=== PATIENT | male | born 1965 | race Caucasian/White ===

== ENCOUNTER 2016-07-05 22:10 | Inpatient (IN) | payer MEDICARE, OTHER ==
--- NOTE | ~2016-07-05 | HP ---
History And Physical [place] [id number] [place]. [address] NAME: JUDIE MARK : 65 STATUS : ADM IN PAT#: [id number] AGE: 50 ADM/REG DATE : 07/06/16 MR#: [id number] REPORT SERV DATE: 07/06/16 DICTATED BY: SAMUEL GAN DATE: 07/06/16 REPORT STATUS : Draft TRANSCRIBED BY: MODL DATE: 07/06/16 DATE OF ADMISSION: 07/06/2016 REASON FOR ADMISSION: Enterobacter bacteremia. HISTORY OF PRESENT ILLNESS: This is a 50-year-old male patient, who dialyzes on a Friday, Friday, Friday schedule at [address] [place] [address]. He has recently had blood cultures drawn that were positive for Enterobacter and sensitive to Cipro, cefepime, and ceftriaxone according to his clinic. Prior to being placed at [address] in May, he was admitted for bacteremia due to ABG and PC blood cultures positive for Enterobacter, MRSA and gram-positive cocci. During that admission, he had his PermCath and AV graft removed. Infectious Disease did see him during that admission and he was placed on vancomycin 1 g post each dialysis with Friday of this week being his last dose. The patient complains of ongoing fevers, low blood pressures fast heart rate, more shortness of breath than usual. At dialysis, two blood cultures that wore collected were positive for gram-negative bacillus with final cultures as listed previously in this HPI. He was recently treated with the addition of Fortaz 1 g on Friday of this week. It was advised to submit to ER evaluation earlier in the week. He did not follow up in the emergency department as instructed and he did not return for dialysis on Friday and was instructed by the dialysis unit to present here for evaluation. He is known to be hep B and hep C positive and has seen Dr. Georgia Vicente and during his previous admission in May, he was prescribed Viread 300 mg every Friday after HD for treatment of hepatitis B, but it is unclear that he has been taking that medication as ordered. He is known to have severe COPD, chronic pain issues, difficulty walking due to severe neuropathy. He has historically refused rehab facilities and has been receiving home health. He is awake and alert this morning during evaluation. His significant other is present in the room with him primarily questioning from the patient as well as his significant other in regard to pain medication. He denies current acute distress and denies any current needs. PAST MEDICAL HISTORY: Positive for end-stage renal disease, Friday, Friday, Friday. hemodialysis at [address], followed there by Dr. Rigoberto Pedro, recent bacteremia with medical history as listed above, diabetes mellitus type 2, hypertension, hepatitis C and hepatitis B positive, tobacco abuse with COPD, chronic pain, bilateral root rotator cuff injury, history of gout, history of skin cancers, history of urinary retention, and the remainder of his medical history is as listed in the HPI. REVIEW OF SYSTEMS: Completed. Please see HPI for pertinent details. SOCIAL HISTORY: Lives locally with significant other. Positive tobacco. Denies ETOH or illicit drugs. MEDICATIONS AND ALLERGIES: As listed. He lists allergies to hydrocodone, tramadol, Stadol, Requip, and Lyrica. ACTIVE MEDICATIONS: Include albuterol two puffs inhaled q.4 hours p.r.n., Coreg 12.5 mg p.o. History And Physical [address] [address] NAME: JUDIE MARK : 65 STATUS : ADM IN [facility]#: [id number] AGE: 50 ADM/REG DATE : 07/06/16 MR#: [id number] REPORT SERV DATE: 07/06/16 DICTATED BY: SAMUEL GAN DATE: 07/06/16 REPORT STATUS : Draft TRANSCRIBED BY: LISSETT DATE: 07/06/16 b.i.d., insulin Levemir 10 units subcu at bedtime, NovoLog via sliding scale, Cozaar 100 mg p.o. daily, Dulera two puffs inhaled b.i.d., MS Contin 30 mg p.o. b.i.d. sustained release, Percocet 10/325 one tab p.o. q.4 hours p.r.n., Viread 300 mg p.o. every seven days post- hemodialysis, Spiriva HandiHaler one cap inhaled every day, bleeding ulcer tablet, which is unknown and not clarified on current active medication list, vancomycin dosed at dialysis, Breo Ellipta two puffs inhaled q.i.d. PHYSICAL EXAMINATION: VITAL SIGNS: Blood pressure 111/57, temperature 98.9, respiratory rate at 17, heart rate is 60 beats per minute. GENERAL: He is awake, alert, oriented, sitting at bedside during evaluation. HEENT: Normocephalic, atraumatic. Normal ocular movements. No scleral icterus or conjunctival pallor is appreciated. NECK: Supple without thyromegaly. No JVD or mass. CHEST: Shows positive S1 and S2. No rubs. No gallops. LUNGS: Very diminished with scattered wheezes. No established rhonchi. GI: Shows flat abdomen, barrel chest. No appreciable mass or tenderness on his abdominal examination. : Deferred. EXTREMITIES: Show positive pulses in all four extremities. No clubbing, cyanosis, or edema. He does have a catheter access in his right chest wall. NEUROLOGIC: Appears to be grossly intact. Nonfocal. SKIN: Warm, dry, intact to the visualized surfaces. No rashes, lesions, or ecchymosis are apparent. PSYCH: He is of appropriate mood and affect. LABORATORY DATA: Pertinent laboratories and imaging to this evaluation and admission: Portable chest x-ray shows increasing bilateral asymmetric infiltrates, right lung is worse than left. Asymmetric pulmonary edema, suspected versus pneumonia or combination of the CT of the chest is worse compared to previous study. Renal function panel: Sodium 127, potassium 4.4, chloride 91, CO2 21, BUN 35, creatinine 4.95. Reflected GFR at 13 mL/minute, glucose of 116, calcium 7.7, phosphorus 4.3, albumin 2.0. Comprehensive metabolic panel shows procalcitonin at 36.88, sodium 127, potassium 3.9, chloride 92, CO2 24, BUN 32, creatinine 4.94, reflected GFR at 13 mL/minutes. Lactate level 1.5 mL. CBC: White blood count of 6.4, RBC 3.01. ABG on entry, pH 7.41, pCO2 32, pO2 85, oxygen saturation at 96.9. IMPRESSION AND PLAN: End-stage renal disease, Friday, Friday, Friday hemodialysis at [address]. Recent medical history as listed above with long clinical course including a recent bacteremia with antibiotic treatment, now known to be Enterobacter sensitive to IV antibiotics rather as listed above. Inpatient admission, hemodialysis today, usual protocols for dialysis patients and you have come to usual baseline weight. Request Infectious Disease evaluation with ongoing bacteremia and placed on IV antibiotics with sensitivity as listed above. Echocardiogram to evaluate for any valvular involvement and CT of the abdomen, chest, and pelvis to look for any other sources of sepsis, sliding scale, home medications, as well DuoNeb q.4 hours p.r.n. We will cover him with pain medications, but heavy medications that were initiated overnight will be discontinued as his p.o. History And Physical [address] [address] NAME: JUDIE MARK : [birth year] STATUS : ADM IN PAT#: [id number] AGE: 50 ADM/REG DATE : 07/06/16 MR#: [id number] REPORT SERV DATE: 07/06/16 DICTATED BY: SAMUEL GAN DATE: 07/06/16 REPORT STATUS : Draft TRANSCRIBED BY: LISSETT DATE: 07/06/16 medications will be initiated today and he is maintained on these at home. Further modification of treatment plan may be made based off clinical presentation of the patient's laboratory results, further consultation with renal attending. We appreciate other subspecialties who are participating in this gentleman's care and look forward to your medical input and opinion. DICTATED BY: Sanchez Cardenas NP JR/LISSETT Samuel Gan MD / [id number] CC: Nas Hazel M.D.
--- NOTE | ~2016-07-05 | OP ---
Record Of Operation [facility] [address] [place]. [address] NAME: JUDIE MARK : 65 STATUS : DIS IN PAT#: [id number] AGE: 50 ADM/REG DATE : 07/06/16 MR#: [id number] REPORT SERV DATE: 07/19/16 DICTATED BY: BURKE BECK DATE: 07/18/16 REPORT STATUS : Draft TRANSCRIBED BY: MODSy DATE: 07/18/16 DATE OF PROCEDURE: 07/17/2016 PREOPERATIVE DIAGNOSES: 1. End-stage renal disease. 2. History of bacteremia. POSTOPERATIVE DIAGNOSES: 1. End-stage renal disease. 2. History of bacteremia. PROCEDURE: Right IJ PermCath. SURGEON: Burke Beck M.D. FACILITY SECURITY OFFICER: None. ANESTHESIA: MAC plus local. INDICATIONS: The patient is a 50-year-old gentleman with renal failure who had bacteremia and recently had his PermCath removed. I subsequently placed a Vas-Cath. Now, he needs a PermCath. DESCRIPTION OF PROCEDURE: After informed consent was obtained, the patient was taken to the operating room and placed in the supine position on the operating table. Monitored anesthesia was administered. The patient's right neck and chest were prepped and draped in the usual sterile fashion. I inserted a wire through the existing Vas-Cath. I removed the Vas-Cath. I exchanged out my gloves. I cleaned up the area. I selected and tunneled a new 19 cm curved HemoSplit catheter from the right chest to the right neck after administering additional local anesthesia. I inserted a Peel-Away Sheath over the aforementioned wire using fluoroscopic guidance. I subsequently inserted the catheter into the Peel-Away Sheath under fluoroscopy and peeled away the sheath. I confirmed that the catheter was not kinked and that it aspirated and flushed well. It was packed with heparinized saline. The right neck wound was closed. The catheter was sutured in place. A sterile dressing was applied. The patient tolerated the procedure well without any intraprocedural complications noted. SIDE LASTER TACK/LISSETT Burke Beck M.D. / [id number] CC: Record Of Operation [place] [address]. [address] NAME: JUDIE MAKR : 65 STATUS : DIS IN [facility]#: [id number] AGE: 50 ADM/REG DATE : 07/06/16 MR#: [id number] REPORT SERV DATE: 07/19/16 DICTATED BY: BURKE BECK DATE: 07/18/16 REPORT STATUS : Draft TRANSCRIBED BY: MODL DATE: 07/18/16 Nas Hazel M.D. Nathan Chamberlain, M.D.
--- NOTE | ~2016-07-05 | CN ---
Consultation Report [facility] [address] [place]. [address] NAME: JUDIE MARK : 65 STATUS : ADM IN PAT#: [id number] AGE: 50 ADM/REG DATE : 07/06/16 MR#: [id number] REPORT SERV DATE: 07/16/16 DICTATED BY: HELDER VIZCARRA DATE: 07/16/16 REPORT STATUS : Draft TRANSCRIBED BY: MODL DATE: 07/16/16 INPATIENT SPINE SURGERY CONSULTATION (SECOND OPINION) DATE OF CONSULTATION: 07/16/2016 CHIEF COMPLAINT: Osteomyelitis, L4-L5. HISTORY OF PRESENT ILLNESS: The patient is a 50-year-old gentleman, admitted to the medical service on 07/06/2016. He has a very long and extensive and a serious list of medical problems and actually recently has been consulted by Palliative Care. Dr. Austin had seen the patient in consultation previously and recommended against surgical intervention given his medical problems, and I was asked to see the patient on second opinion. The patient has been having intractable back and leg pain, where his legs will feel weak to him and cause him to fall, his legs just give out. He states he has been using a wheelchair prior to admission. He has positive blood culture for Enterobacter MRSA and a gram-positive cocci as well. He does have a long history of pain management for chronic pain syndrome. PHYSICAL EXAMINATION: GENERAL: The patient is somewhat cachectic in appearance, in a moderate amount of distress. Has difficulty finding a position of comfort, although when he is resting, still he seems to be well controlled with his pain. NEUROLOGIC: Strength in the lower extremities is 4/5 to 4+/5 for the hip flexors, hamstrings, quadriceps, tibialis anterior, EHL, gastrocsoleus, and peroneals. He does have diffuse sensory deficits to light touch, likely related to his diabetic neuropathy. IMAGING: I have reviewed the CT scan that does show osteodiscitis at the L4-L5 level as well as degenerative disk disease at the L5-S1 level. This is of the chest, abdomen and pelvis, not a true dedicated spine image, and we do not have any MRI imaging of the spinal column as well. However, based on the imaging available, ere is no evidence of any epidural involvement or any significant nerve compression. There is significant bony erosion at the L4-L5 disk space. ASSESSMENT: L4-L5 osteodiscitis with multiple severe medical problems. PLAN: I do agree with Dr. Austin' assessment that I would certainly try to avoid surgery given his medical comorbidities. There is a real significant chance of the patient not being able to survive the extent of surgery that would be necessary. I would recommend continued medical management of his infection and would not recommend a significantly invasive spinal surgery procedure. The patient was happy with this and agrees that he does not want to have any surgery related to the spine. JCE/MODL Consultation Report [place] [id number] [place]. [address] NAME: JUDIE MARK : 65 STATUS : ADM IN PAT#: [id number] AGE: 50 ADM/REG DATE : 07/06/16 MR#: [id number] REPORT SERV DATE: 07/16/16 DICTATED BY: HELDER VIZCARRA DATE: 07/16/16 REPORT STATUS : Draft TRANSCRIBED BY: LISSETT DATE: 07/16/16 Helder Vizcarra DO / [id number] CC: Nas Hazel M.D.
--- NOTE | ~2016-07-05 | OP ---
Record Of Operation [facility] [address] [place]. [address] NAME: JUDIE MARK : 65 STATUS : ADM IN [facility]#: [id number] AGE: 50 ADM/REG DATE : 07/06/16 MR#: [id number] REPORT SERV DATE: 07/14/16 DICTATED BY: BURKE BECK DATE: 07/13/16 REPORT STATUS : Draft TRANSCRIBED BY: MODL DATE: 07/13/16 DATE OF PROCEDURE: 07/12/2016 PREOPERATIVE DIAGNOSES: 1. Bacteremia. 2. End-stage renal disease. POSTOPERATIVE DIAGNOSES: 1. Bacteremia. 2. End-stage renal disease. PROCEDURE: Right IJ Vas-Cath. SURGEON: Burke Beck M.D. HAND FRETTED INSTRUMENT MAKER: None. ANESTHESIA: Local. INDICATIONS: The patient is a 50-year-old gentleman with a history of end-stage renal disease, who has bacteremia. It has been treated with antibiotics and his PermCath was then removed. He now needs dialysis access. Thus, he was consented for intervention. DESCRIPTION OF PROCEDURE: After informed consent was obtained, the patient was taken to the operating room and placed in the supine position on the operating table. Local anesthetic was administered after the patient's right neck was prepped and draped in usual sterile fashion. Ultrasound-guided access was obtained of the right internal jugular vein. The ultrasound image was documented on the chart. I passed a wire centrally. I made a small skin incision. I dilated the tract and inserted a 15 cm Vas-Cath under fluoroscopic guidance. I sutured the catheter in place. It aspirated and flushed well. It was packed with heparinized saline. A sterile dressing was applied. The patient tolerated the procedure well without any intraprocedural complications noted. SURFACE GRINDING MACHINE HAND/LISSETT Burke Beck M.D. / [id number] CC: Nas Hazel M.D. Nathan Chamberlain, M.D.
--- NOTE | ~2016-07-05 | CN ---
Consultation Report [facility] [address] [place]. [address] NAME: JUDIE MARK : 65 STATUS : ADM IN PAT#: [id number] AGE: 50 ADM/REG DATE : 07/06/16 MR#: [id number] REPORT SERV DATE: 07/11/16 DICTATED BY: SIDDHARTH GRAY DATE: 07/10/16 REPORT STATUS : Draft TRANSCRIBED BY: MODL DATE: 07/10/16 CONSULT NOTE. CONSULT REQUESTED BY DR. BASS. SIDDHARTH GRAY ANSWERING THE CONSULT FOR DR. OMERO RASHID. DATE OF CONSULTATION: 07/10/2016 HISTORY: A 50-year-old male who was admitted to [facility] on 07/06/2016, with history of back pain, had been present for about two and a half to three months. Had been in [facility] in the past and a copy of those records were in the chart for completeness. The patient had injection apparently in the area on 07/09/2016, he is still having some difficulty, but maybe a little bit better today. He has had no surgery on his back in the past. ALLERGIES: HYDROCODONE, TRAMADOL, BUTORPHANOL WHICH IS FROM STADOL, AND HAD SOME REQUIP AND ALSO LYRICA. ALL PART OF THE ALLERGIES. PAST HISTORY: He has had hepatitis C and hepatitis B, and he is admitted this time because of the back pain. His other history, he has had some difficulty for a period of time. He did have alcohol ingestion in the past, which he was considered an alcoholic by his . Admission this time was primarily for the back pain and physical examination obviously appears to have some chronic problems. His abdomen is quite tight and he has had some relief from the back pain he had been having, but still has considerable amount of pain. In the past, he has been in pain clinics before and getting some high dose narcotics. PHYSICAL EXAMINATION: ABDOMEN: Quite tense. HEART: Appears to have a regular sinus rhythm. In the past, he has had echocardiogram and summary of that is moderately decreased left ventricular systolic function with an estimated ejection fraction of 30% to 35%. Normal RV size with mildly decreased systolic function. Moderate pulmonary hypertension. Moderate to severe TR. Mild to moderate MR. There is a large left pleural effusion. LUNGS: Appeared to have some crepitant rales. HEART: At this time appears to have a regular sinus rhythm. ABDOMEN: Quite tense. Distended. He appears to have hepatosplenomegaly, which is probably 4 cm to 6 cm below the right costal margin or more. Difficult to tell for sure. EXTREMITIES: He has edema of both legs. IMPRESSION: Of course is long history of problems particularly with his back. He has been in [facility] on number of occasions and all of that information is on the chart. Has acute kidney failure. He is on dialysis. Recent injections of the low back. Orders Consultation Report [facility] [address] [place]. [address] NAME: JUDIE MARK : 65 STATUS : ADM IN [facility]#: [id number] AGE: 50 ADM/REG DATE : 07/06/16 MR#: [id number] REPORT SERV DATE: 07/11/16 DICTATED BY: SIDDHARTH GRAY DATE: 07/10/16 REPORT STATUS : Draft TRANSCRIBED BY: MODL DATE: 07/10/16 have been written and basically what we are doing for the orders at this particular point is to keep him on MS Contin 30 mg b.i.d. and the oxycodone 10 mg every 4 hours p.r.n. pain. Discontinue the morphine IV and also discontinuing the oxycodone 5 mg q.6 hours. Neurontin is being added 300 mg every eight hours or any oversedation, respiratory rate of 12 or less per minute, or systolic blood pressure 90 or less, all the medications above would be discontinued. Since he is on dialysis, the nurse and I discussed to be sure to watch him 24 to 48 hours after he has had dialysis because of possible accumulation of the sedative medications. WR/MODL Siddharth Gray M.D. / [id number] CC: Nas Hazel M.D. James A Tumlin, M.D. Scott Hodges, D.O.
--- NOTE | ~2016-07-05 | CN ---
Consultation Report [facility] [address] [place]. [address] NAME: JUDIE MARK : 65 STATUS : ADM IN PAT#: [id number] AGE: 50 ADM/REG DATE : 07/06/16 MR#: [id number] REPORT SERV DATE: 07/07/16 DICTATED BY: NANY PAL DATE: 07/07/16 REPORT STATUS : Draft TRANSCRIBED BY: MODL DATE: 07/07/16 INFECTIOUS DISEASE CONSULT DATE OF CONSULTATION: 07/07/2016 REASON FOR CONSULTATION: Enterobacter sepsis. HISTORY OF PRESENT ILLNESS: This is a 50-year-old man with past medical history notable for end-stage renal disease on chronic dialysis, diabetes, hypertension, chronic hepatitis B and C, COPD. He apparently was found to have a positive blood cultures around May for Enterobacter and MRSA. However, I do not have the culture reports. This apparently was associated with an admission to [facility] where he had an infected right upper extremity dialysis graft removed and then had a new PermCath placed. The patient tells me that he also was told he had "spine infection," but we have no details. He has been on a prolonged course of antibiotics including vancomycin and the notes suggest that he was recently treated also with Fortaz, again details not clear. The patient started developing fevers a week ago and was advised to go to the emergency department when he went to the dialysis clinic last Friday and Friday, but he refused. However, his fevers worsen, it got as high as 102.9 and he did come to the emergency department at [facility] on the evening of 07/05/2016, where he had a fever of 101.5 and was tachycardic. He also complains of low back pain. Apparently, an outpatient blood culture had been done at dialysis last week, which again has grown Enterobacter, which is sensitive to quinolones, ceftriaxone, and ceftazidime. I do not have the full report. Admission blood cultures here from 07/05/2016, are negative. Repeat blood cultures yesterday have one set growing Enterobacter. As best I can tell, this is drawn from a peripheral stick. The patient had a CT scan done of the chest, abdomen, and pelvis because he also complained of abdominal pain. I have reviewed this with Radiology and it shows destructive changes at L4 and L5, consistent with diskitis and vertebral osteomyelitis with some paravertebral changes also. In addition, he has moderately sized pleural effusions, right greater than left and a nodular liver. The patient was started on antibiotics here with vancomycin and ceftriaxone. PAST MEDICAL HISTORY: In addition to the above is notable for a chronic pain and bilateral rotator cuff injuries. There is also history of gout. The patient has been seen by Dr. Abraham Vicente for his chronic hepatitis. I would note that on the computer here his hepatitis B surface antigen was negative back in April, although he had a positive hepatitis C, quantitative RNA. ALLERGIES: HE IS INTOLERANT OF HYDROCODONE, TRAMADOL, STADOL, REQUIP, LYRICA. PRESENT MEDICATIONS: In addition to the antibiotics include Coreg, subcutaneous heparin, Cozaar, MS Contin, Protonix, Spiriva, Levemir. SOCIAL HISTORY: He lives with the significant other. Positive tobacco history. Nondrinker. Consultation Report [address] [place]. [address] NAME: JUDIE MARK : 65 STATUS : ADM IN [facility]#: [id number] AGE: 50 ADM/REG DATE : 07/06/16 MR#: [id number] REPORT SERV DATE: 07/07/16 DICTATED BY: NANY PAL DATE: 07/07/16 REPORT STATUS : Draft TRANSCRIBED BY: LISSETT DATE: 07/07/16 FAMILY HISTORY: Noncontributory to the present problem. REVIEW OF SYSTEMS: Denies any chest pain or significant shortness of breath. Otherwise as noted above. He does not have any diarrhea or vomiting. PHYSICAL EXAMINATION: VITAL SIGNS: The patient weighs 79 kg. Presently afebrile. Blood pressure 116/73, pulse 62, respiratory rate 14. GENERAL: He is alert, no acute distress. HEAD AND NECK: Shows clear oral cavity. Supple neck. LUNGS: Clear to auscultation. Diminished breath sounds in the bases. CARDIAC: Regular rate and rhythm. Normal S1, S2. Very soft systolic ejection murmur, left sternal border. There is a right IJ PermCath. ABDOMEN: Somewhat firm. No significant tenderness. Bowel sounds reduced. BACK: Shows some mild tenderness to palpation in the lower lumbar area. No erythema. EXTREMITIES: The surgical wound on his right arm where the graft was removed has healed well. No signs of inflammation or infection. He has a peripheral IV without phlebitis. The patient does have lower extremity edema. LABORATORY STUDIES: White blood cell count on admission 6.4, today 5.1; hemoglobin 7.4; platelets 100. Albumin 1.8. Liver function tests are normal. Blood cultures as mentioned. IMAGING STUDIES: As noted. IMPRESSION: Enterobacter sepsis. The source of this is not entirely clear. I am concerned though that he has active lumbar spine infection based on the appearance of the CT scan, and apparently this was diagnosed back in May. The other possible source of the Enterobacter would be the dialysis catheter I think. The patient also has underlying chronic hepatitis. PLAN: 1. Radiology will try to get any previous spine imaging from [facility] to be sent over for comparison, the changes on CT scan here could reflect old and now an active infection, although I think that is unlikely. 2. We will request further records from [facility] regarding any radiology reports and consultations. I called the [facility] and they could not find a record of any cultures in May. 3. We will discuss further with Dr. Pedro, the patient's engraver rubber tomorrow. 4. Continue antibiotic therapy for the Enterobacter with cefepime. I will stop the vancomycin. 5. Await echocardiogram report. Consultation Report [address] [address] NAME: JUDIE MARK : 65 STATUS : ADM IN [facility]#: [id number] AGE: 50 ADM/REG DATE : 07/06/16 MR#: [id number] REPORT SERV DATE: 07/07/16 DICTATED BY: NANY PAL DATE: 07/07/16 REPORT STATUS : Draft TRANSCRIBED BY: LISSETT DATE: 07/07/16 REENE/LISSETT Nany Pal M.D. / [id number] CC: Nas Hazel M.D. Brant Holt, M.D.
--- NOTE | ~2016-07-05 | OP ---
Record Of Operation [facility] [address] [place]. [address] NAME: JUDIE MARK : 65 STATUS : ADM IN [facility]#: [id number] AGE: 50 ADM/REG DATE : 07/06/16 MR#: [id number] REPORT SERV DATE: 07/14/16 DICTATED BY: BURKE BECK DATE: 07/13/16 REPORT STATUS : Draft TRANSCRIBED BY: MODSy DATE: 07/13/16 DATE OF PROCEDURE: 07/11/2016 PREOPERATIVE DIAGNOSES: 1. Bacteremia. 2. End-stage renal disease. POSTOPERATIVE DIAGNOSES: 1. Bacteremia. 2. End-stage renal disease. PROCEDURE: Removal of a right IJ PermCath. LOCKSTITCH BACK MAKER: None. ANESTHESIA: Local. INDICATIONS: The patient is a 50-year-old gentleman with a history of bacteremia and end- stage renal disease. He needs his PermCath removed. Thus, he was consented for intervention. DESCRIPTION OF PROCEDURE: After informed consent was obtained, the patient's right chest was prepped and draped in the usual sterile fashion. Local anesthetic was administered. I dissected out the cuff of his PermCath and removed it. Manual pressure was used for hemostasis. The tip of the catheter was sent for culture. The patient tolerated the procedure well without any intraprocedural complications noted. ESDRAS/LISSETT Burke Beck M.D. / [id number] CC: Nas Hazel M.D. Nathan Chamberlain, M.D.
--- NOTE | ~2016-07-05 | CN ---
Consultation Report [facility] [address] [place]. [address] NAME: GAL MARK : 65 STATUS : ADM IN PAT#: [id number] AGE: 50 ADM/REG DATE : 07/06/16 MR#: [id number] REPORT SERV DATE: 07/15/16 DICTATED BY: YADY MARROQUIN DATE: 07/15/16 REPORT STATUS : Draft TRANSCRIBED BY: LISSETT DATE: 07/15/16 PALLIATIVE CARE CONSULTATION DATE OF CONSULTATION: 07/15/2016 The patient was seen in his room with his significant other. ALLERGIES: INCLUDE LYRICA, HYDROCODONE, TRAMADOL, STADOL AND REQUIP, REACTIONS ARE NOT SPECIFIED. REASON FOR CONSULTATION: Multisystem compromise in a 50-year-old dialysis patient with diskitis. HISTORY OF PRESENT ILLNESS: We are asked to see Gal today with an eye towards helping to clarify his goals of care, possible transitions in care, and advance care planning. He was admitted on 07/06 with multiple issues including end-stage renal disease, on dialysis since 04/2016; chronic compliance issues; hepatitis B and C, as well as Enterobacter sepsis with diskitis. He has since grown out Stenotrophomonas from his blood as well. He underwent a biopsy of L4-L5, showing evidence of osteomyelitis. PAST MEDICAL HISTORY: Includes severe COPD, on oxygen at home; chronic pain issues; neuropathy secondary to diabetes, insulin dependent. He also has pulmonary hypertension in the 40s and ejection fraction of 55% with tricuspid regurgitation. SOCIAL HISTORY: He has been with his significant other for some nine years. Contacts are listed as Donna Bartonrosendo, his sister. The patient also has a son, who is living in [place], from whom he is evidently somewhat estranged. His significant other has been with Gal for some nine years, they have not gotten . She has a previous marriage of some 34 years to a gentleman with chronic alcohol abuse issues. She has had life-support exposure with her as well as a [id number]-ni-fej. She described the as "dying in her arms." She has had experience in the ICU, making end-of-life decisions. The patient continues to be a half pack-a-day smoker, although she says it is closer to three to four cigarettes. There are no illicit drugs in the house and never have been. He does have a history of alcohol abuse, but quit some nine years ago. 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 There is no advance care documentation or planning in the record. REVIEW OF SYSTEMS: System review includes a weight which has risen from 168 to 181. He has some impairment in his ADLs secondary to severe neuropathy. He is unable to drive a car because he cannot feel his feet, and he walks with great difficulty. He is able to shower, dress, and prepare food Consultation Report [facility] [address] [place]. [address] NAME: GAL MARK : 65 STATUS : ADM IN [facility]#: [id number] AGE: 50 ADM/REG DATE : 07/06/16 MR#: [id number] REPORT SERV DATE: 07/15/16 DICTATED BY: YADY MARROQUIN DATE: 07/15/16 REPORT STATUS : Draft TRANSCRIBED BY: LISSETT DATE: 07/15/16 as required. The system review is negative, except as noted above. CT scanning shows evidence of pleural effusions, lung changes consistent with possible septic embolization and/or bronchopneumonia, coronary calcifications, as well as cirrhosis. There is anasarca in the lower abdominal wall. SIGNIFICANT LABORATORY DATA: Includes a sodium down to 125; an albumin, which is 2.2 with supplementation, it was 1.8 on admission. His last A1c in April was 5.9. His June BNP level was over 3000. His HIV is negative. He is seropositive for hep B and C. INR 1.2. Bilirubin 0.5. LFTs are normal. PHYSICAL EXAMINATION: CONSTITUTIONAL: Today, shows an awake, somewhat disheveled gentleman, in no obvious distress. He rates his pain as a 5/10. His dyspnea score is 3/10. He is wearing a nasal cannula. VITAL SIGNS: Blood pressure 101/60; on 3 L of O2, his saturation is 98% (he is not a CO2 retainer); respiratory rate 16 and not labored; pulse 88 and regular. BMI 27.5. GENERAL: We have an alert, fairly appropriate gentleman with a relatively simplistic view of things. HEENT: Dentition is fair to poor. The conjunctivae are pale, but slightly pink. Sclerae anicteric. Pupils are equal and reactive. Gaze is conjugate. NECK: Supple with no adenopathy, tenderness, or guarding. There is a midline trachea. There is a right subclavian site which is dressed from previous line removal. CHEST: Shows some increase in the AP diameter, and he does have scattered rhonchi bilaterally. He has decreased breath sounds in both bases with a few wheezes. HEART: Regular rate and rhythm. S1 and S2. Grade 2/6 systolic murmur at the left sternal border is noted. The pulses are 2+ and symmetrical. ABDOMEN: Somewhat protuberant, distended, tympanic (bowel movement every two to three days is normal). Note, the CT scan does not show obvious ascites, but his abdominal wall is somewhat thickened and in fact, he does have pitting edema in the lower abdomen all the way towards the feet. : Not examined. EXTREMITIES: Show multiple scars and scabs. 2+ edema basically from the entire lower extremities up into the thighs. NEUROLOGIC: I did not do a detailed neurological evaluation on him. IMPRESSION, PLAN, AND RECOMMENDATIONS: Gal is a relatively chronically ill-appearing gentleman, who has very poor insight, I think, into his overall situation. He is willing to do "whatever it takes to keep living." Despite this, his actions and choices frequently are not in keeping with that statement. His significant other has a somewhat better insight into the situation and we did talk about things such as advanced life support, especially as it relates to respiratory care. I did warn them that if his respiratory care was prolonged and required a ventilator termite technician that the combination of that and dialysis was not a service which was available at [facility]. Consultation Report [address] [address] NAME: GAL MARK : 65 STATUS : ADM IN PAT#: [id number] AGE: 50 ADM/REG DATE : 07/06/16 MR#: [id number] REPORT SERV DATE: 07/15/16 DICTATED BY: YADY MARROQUIN DATE: 07/15/16 REPORT STATUS : Draft TRANSCRIBED BY: LISSETT DATE: 07/15/16 We are currently drifting, I believe, towards the idea of maximal care, but a transition to comfort only if he requires tracheostomy or if there is a life-threatening event. I have asked him to think about conditions in which he might find himself which would not be desirable, and his significant other once again at that point chimed in and said "we are going to talk about that today." I volunteered to return tomorrow to do a Designation of Surrogate form for them so that she is able to provide his healthcare decision making if that is what he wants and also to look at the idea of doing some advance care planning. Overall, I believe Gal has a relatively naive view of a lot of his problems and is content to continue to try and live as long as possible even if the quality of his life is further compromised. TIME OF CONSULT: 0915 hours to 1035 hours. ANTONIO/LISSETT Yady Marroquin M.D. / [id number] CC: Nas aHzel M.D.
--- NOTE | ~2016-07-05 | CN ---
Consultation Report [facility] [address] [place]. [address] NAME: JUDIE MARK : 65 STATUS : ADM IN PAT#: [id number] AGE: 50 ADM/REG DATE : 07/06/16 MR#: [id number] REPORT SERV DATE: 07/10/16 DICTATED BY: YARIEL BASS DATE: 07/10/16 REPORT STATUS : Draft TRANSCRIBED BY: MODL DATE: 07/10/16 CONSULTATION DATE OF CONSULTATION: CHIEF COMPLAINT: 1. Severe back pain. 2. Loss of ability to walk. HISTORY OF PRESENT ILLNESS: This is a 50-year-old male, who is mainly lived in [place] but has recently moved to the [facility]. The patient has multiple medical problems that are well outlined in the history and physical which I have reviewed in its entirety. Briefly, the patient has severe diabetes with neuropathy. He has hepatitis B and C with liver failure. He also has end-stage renal disease with dialysis requirement. He indicated that he was walking and went to the ER from [place] in late April, he walked into the hospital and he said seven days later he could not walk at all. His pain was intractable. He felt his legs would not support him and he was taken out of the hospital in a wheelchair. He ultimately was admitted here at [facility] just four days ago. His other major medical problems he has continuous home O2 at 4 L/minute and has been found to have an osteomyelitis and diskitis at L4-5. He has had positive blood cultures which was felt to be from his fistula for dialysis. Blood cultures were positive for Enterobacter, MRSA, and a gram-positive cocci. He is now having such intractable pain that I have been asked to evaluate his overall lumbar osteomyelitis and diskitis. The patient says the pain is 10/10. Interestingly, he has been on high-dose narcotics for over 9 years and in fact he has been on MS Contin 60 mg three times a day and he has been on Percocet every 6 hours or four times a day for nine years. His chronic pain syndrome has been managed by multiple physicians and he is currently not seeing any one particular in terms of pain management in the [facility]. Again, the patient has a CT scan of the abdomen and pelvis which shows clear osteomyelitis and resorption of the endplate inferiorly of L4 and superiorly of L5 with partial loss of vertebral body. He also has an MRI which was done many years ago, but does not have a more recent MRI here at [facility], has been able to lay in the scanner because of the intractable pain. PHYSICAL EXAMINATION: GENERAL: Today, on physical exam, he was sitting on the side of the bed. He was leaning forward, leaning on the bedside table. He had home O2 on, complaining bitterly of pain. He was having so much pain, he was hard to cooperate for any exam. MUSCULOSKELETAL: As I percussed very lightly over the spinous processes of his thoracic spine, he complained of some pain but he complained bitterly of pain when I percussed just minimally over the spinous processes of the lumbar spine. He had negative passive straight leg raising, but cannot do an active straight leg raising due to the pain. I did get him to Consultation Report [facility] [id number] [place]. [address] NAME: JUDIE MARK : 65 STATUS : ADM IN [facility]#: [id number] AGE: 50 ADM/REG DATE : 07/06/16 MR#: [id number] REPORT SERV DATE: 07/10/16 DICTATED BY: YARIEL BASS DATE: 07/10/16 REPORT STATUS : Draft TRANSCRIBED BY: LISSETT DATE: 07/10/16 flex his hips passively at least against gravity which gives him at least a 3/5 strength. I think most of his motor resistance is due to pain when resting his heel on the floor, I could get him to dorsiflex and plantar flex against resistance with a strength of 5/5. Thus, it appears most of his motor strength in the lower extremities prohibited by pain and not by true neurologic deficit. He definitely has 5/5 strength of the tibialis anterior and gastroc soleus with 3/5 in the other muscle groups. He has loss of patella and Achilles reflexes. He has a significant stocking-glove loss of sensation almost a dense loss of sensation from just above the knees distally. His toes were downgoing. He did not have any evidence of myelopathy at least by exam. The CT has been reviewed. He clearly does have evidence of osteomyelitis and diskitis at L4 5. I cannot see evidence of major abscess around the spine itself in the area of the epidural space. ASSESSMENT: Intractable back pain secondary to hematogenous osteomyelitis and diskitis at L4 5 without obvious abscess. I am not sure that there was any true neurologic deficit secondary to a nerve compressive problem. RECOMMENDATIONS: With this patient's severe medical problems with his continuous O2, his severe diabetes, his renal failure and dialysis dependency, his failing liver, it places him at extremely high risk for any surgical intervention. I would have to defer to the anesthesiologist as to whether or not the patient could tolerate a general anesthesia for a 4-5 hours which would be required in order to carry out any debridement and reconstruction of the anterior column of his spine followed by posterior stabilization. In addition, the asset analyst, I think should see the patient and determine whether or not they would be willing to take care of him and whether or not they feel that he could medically survive a minimum of 2-3 months in order to get through the surgical recovery. I do think he is extremely high risk of medical complication. I am not as concerned about neurologic deficit or paralysis as I am, medical situations such as respiratory failure, AL, etc. I will discuss the case with Dr. Pal. If the medical team felt that there was a justification for surgery, he would have to have an anesthesia with an MRI obtained of his spine prior to any surgical procedure. SH/MODL Yariel Bass D.O. / [id number] CC: Nas Hazel M.D.
--- NOTE | ~2016-07-05 | DS ---
Discharge Summary [facility] [address] [place]. [address] NAME: JUDIE MARK : 65 STATUS : DIS IN PAT#: [id number] AGE: 50 ADM/REG DATE : 07/06/16 MR#: [id number] REPORT SERV DATE: 07/29/16 DICTATED BY: URI MOSHER DATE: 07/29/16 REPORT STATUS : Draft TRANSCRIBED BY: MODSy DATE: 07/29/16 Data Collection from hospitalization DISCHARGE DIAGNOSES: 1. End-stage renal disease. 2. Diskitis. 3. Cirrhosis. 4. Anemia. 5. Chronic pain. 6. Hepatitis. 7. Hypertension. 8. Type 2 diabetes mellitus. 9. Tobacco abuse. 10.Chronic obstructive pulmonary disease. 11.History of gout. 12.History of skin cancer. 13.History of urinary retention. 14.Neuropathy. 15.Pulmonary hypertension. CONSULTATIONS: Dr. Robb Pal, Dr. Yariel Austin, Dr. Edis Marroquin, Dr. Helder Vizcarra, Dr. Siddharth Bland, and Dr. Burke Beck. PROCEDURES: 1. Removal of right IJ PermCath on 07/11/2016. 2. Right IJ Vas-Cath on 07/12/2016. 3. Right IJ PermCath on 07/17/2016. 4. CT scan of the abdomen and pelvis without contrast and CT scan of the chest without contrast on 07/06/2016. 5. CT-guided biopsy of L4-5 disk space on 07/09/2016. PATHOLOGY: Bone, L4-5 vertebra, biopsy-bone with osteomyelitis, AFB and Gram stain negative for microorganisms, negative for malignancy. DISCHARGE MEDICATIONS: Proventil two puffs via inhaler every four hours as needed, Coreg 12.5 mg twice a day, Breo Ellipta two puffs via inhaler daily, Levemir 10 units subcutaneously at bedtime, Humalog as instructed, Claritin 10 mg daily, Dulera two puffs via inhaler twice a day, MS Contin 15 mg every eight hours, Prilosec 40 mg twice a day, Percocet 10/325 one tablet four times a day as needed, Viread 300 mg every seven days, Spiriva HandiHaler one capsule via inhaler every morning, and vancomycin one dose on Mondays, Wednesdays, and Fridays as instructed. CONDITION AT DISCHARGE: Stable. DISPOSITION: The patient was discharged home on a low-cholesterol, renal-diabetic diet with no concentrated carbohydrates and activities as instructed. He would follow up with Dr. Robb Pal on 08/06/[address] Claudia Irby as instructed. He would follow up for dialysis as scheduled. Discharge Summary [place] [id number] [place] [address] NAME: JUDIE MARK : 65 STATUS : DIS IN PAT#: [id number] AGE: 50 ADM/REG DATE : 07/06/16 MR#: [id number] REPORT SERV DATE: 07/29/16 DICTATED BY: URI MOSHER DATE: 07/29/16 REPORT STATUS : Draft TRANSCRIBED BY: LISSETT DATE: 07/29/16 HOSPITAL COURSE: This is a 50-year-old male who dialyzes on Mondays, Wednesdays, and Fridays. He recently had blood cultures that were positive for Enterobacter and sensitive to Cipro, cefepime, and ceftriaxone. Prior to being placed at the [address] in May, he had been admitted for bacteremia due to ABG and PC. Blood cultures positive for Enterobacter, MRSA, and gram-positive cocci. During that admission, he had his PermCath and AV graft removed. He had been seen by Infectious Disease and was placed on vancomycin following each dialysis with Friday of this week being his last dose. He complained of ongoing fevers, low blood pressures, fast heart rate, and having more shortness of breath than usual. At dialysis, two blood cultures were collected and were positive for gram- negative bacillus with final cultures as listed previously in his history of present illness. He was recently treated with the addition of Fortaz on Friday prior to this admission. He was advised to submit to emergency room evaluation earlier in the week. He did not follow up in the emergency department as instructed, and he did not return for dialysis on Friday prior to this admission and was instructed by the Dialysis Unit to present here for evaluation he has known hep B and hep C positive. He has seen Dr. Abraham Vicente during his previous admission in May and had been prescribed Viread every Friday after hemodialysis for treatment of hepatitis B, but it was unclear whether he had been taking that medication as ordered. He has known severe COPD and chronic pain issues with difficulty walking due to severe neuropathy. He has historically refused rehab facilities and had been receiving home help. He was awake and alert on the morning of this admission. He was not in any acute distress. He was admitted to the hospital for further evaluation and treatment. Upon admission, hemodialysis therapy was going to be performed. He was going to be placed on IV antibiotics. Sliding scale insulin would be started as well as his home medications and DuoNebs. He was seen in consultation by Dr. Robb Pal. He had a CT scan of the abdomen and pelvis without contrast as well as a CT scan of the chest without contrast because he had been complaining of abdominal pain. These revealed destructive changes at L4 and L5 consistent with diskitis and vertebral osteomyelitis with some paravertebral changes also. In addition, he had moderately-sized pleural effusions, right greater than left and a nodular liver. He had been started on vancomycin and ceftriaxone. The source of the Enterobacter sepsis was not entirely clear. There was some concern that he has active lumbar spine infection based on the appearance of the CT scan, and apparently, this was diagnosed back in May. The other possible source of the Enterobacter would be the dialysis catheter. The patient also has underlying chronic hepatitis. Further records from [place] were requested. Antibiotics would be continued for the Enterobacter with cefepime. Vancomycin was stopped at this time. An echocardiogram was going to be performed. He did have some pain and nausea. Echocardiogram was performed. On 07/08/2016, hemodialysis therapy was performed. It was felt that he would need to undergo biopsy of the lumbar spine. He was transfused two units of packed red blood cells on hemodialysis. He remained afebrile. White count was 4.3. Laboratory studies from [place] were reviewed. He did complain of some low back pain. His lungs were clear. He was felt to have Enterobacter sepsis. Plans were being for a CT-guided biopsy of the lumbar spine to be performed. Cefepime was continued. On 07/10/2016, he remained afebrile. He had undergone CT-guided biopsy of L4-5. Culture from the biopsy was negative. Gram stain was negative. Pathology results were pending. Hemodialysis therapy was going to be performed. [facility] Discharge Summary [address] [address] NAME: JUDIE MARK JAREN : 65 STATUS : DIS IN PAT#: [id number] AGE: 50 ADM/REG DATE : 07/06/16 MR#: [id number] REPORT SERV DATE: 07/29/16 DICTATED BY: URI MOSHER DATE: 07/29/16 REPORT STATUS : Draft TRANSCRIBED BY: LISSETT DATE: 07/29/16 had been started. He was seen in consultation by Dr. Siddharth Bland. The patient had been seen in [facility] and had been receiving some high-dose narcotics. He has a long history of problems, particularly with his back. He had been in [facility] on a number of occasions. He has acute kidney failure and is on dialysis. He had had recent injections in the lower back. He was going to be kept on MS Contin and oxycodone at this time. We would discontinue the IV morphine and discontinue the oxycodone. Neurontin was added as well. He was also seen by Dr. Yariel Austin regarding his severe back pain and loss of ability to walk. His pain had been intractable. He felt like his legs would not support him. He had been taken out of the hospital in a wheelchair. He does have continuous home O2 at 4 liters/minute. He had been found to have osteomyelitis and diskitis at L4-L5. He had positive blood cultures which were felt to be from his fistula for dialysis. Blood cultures had been positive for Enterobacter, MRSA, and gram-positive cocci. The patient said that his pain was 10/10. Interestingly, he has been on high-dose narcotics for over 9 years and in fact had been on MS Contin 60 mg three times a day and had been on Percocet every six hours or four times a day for nine years. His chronic pain syndrome had been managed by multiple physicians, and he was currently not seeing anyone particular in terms of pain management in the [facility]. CT scan of the abdomen and pelvis showed clear osteomyelitis and resorption of the endplate inferiorly at L4 and superiorly at L5 with partial loss of vertebral body. I did not see any evidence of major abscess around the spine itself in the area of epidural space. He was felt to be an extremely high risk for any surgical intervention. I was going to defer to the anesthesiologist as to whether or not the patient can tolerate general anesthesia for four to five hours which would be required in order to carry out any debridement and reconstruction of the anterior column of his spine followed by posterior stabilization. In addition, it was felt that the property coordinator should see the patient and determine whether or not he would be willing to take care of him and whether or not they felt he could medically survive a minimum of two to three months in order to get through the surgical recovery. It was felt that he was extremely high risk for medical complications. Hemodialysis therapy was performed. On 07/11/2016, it was felt that the patient's prognosis was very poor. It was discussed with the patient and his significant other that he would need to go to [place] or a retirement facility for prolonged IV antibiotic treatment. They understood the life- threatening nature of his infection and his other problems. The patient had had MRSA- positive blood cultures in May of this year. The patient was seen by Dr. Burke Beck. He performed removal of the right IJ PermCath. He did have continued swelling and 2 to 3+ lower extremity edema. There were no changes in his chronic pain. On 07/12/2016, the patient said he had some wheezing and continued to complain of back pain. His blood pressure was running a little low. His sodium level was low. The patient underwent right IJ Vas-Cath placement as he now needed dialysis access. On 07/13/2016, he still complained of pain. He was afebrile. Blood cultures remained negative for now. Antibiotics were continued. Hemodialysis therapy was performed. He did complain of right hip pain. He was wanting to go home. We discussed his multiple medical problems. He was told that if he is not going to complete his antibiotics, he would need to go on hospice and stop hemodialysis therapy. He was not felt appropriate for home IV antibiotic treatment. His vital signs appeared stable. Dialysis therapy continued. He did seem more alert. On 07/15/2016, he was seen by Dr. Edis Marroquin regarding multi-system compromise, and the Discharge Summary [address] [address] NAME: JUDIE MARK : 65 STATUS : DIS IN PAT#: [id number] AGE: 50 ADM/REG DATE : 07/06/16 MR#: [id number] REPORT SERV DATE: 07/29/16 DICTATED BY: URI MOSHER DATE: 07/29/16 REPORT STATUS : Draft TRANSCRIBED BY: LISSETT DATE: 07/29/16 patient has multiple issues including end-stage renal disease, on dialysis; chronic compliance issues; hepatitis B and C as well as Enterobacter sepsis with diskitis. He had grown out Stenotrophomonas from his blood as well. His biopsy of L4-L5 had shown evidence of osteomyelitis. Sodium level was 125. His last hemoglobin A1c in April was 5.9. The patient said he was willing to do whatever it took to keep living. Despite this, his actions and choices frequently were not in keeping with that statement. He said that we were currently drifting towards the idea of maximal care, but a transition to comfort only if he required a tracheostomy or if there was a life-threatening event. Biopsy cultures remained negative at this time. Followup blood cultures were negative. Plans were being made for him to receive a PermCath. The patient was adamant about going home. He was being given vancomycin at hemodialysis as well as oral Levaquin. His prognosis remained very poor overall. He was taking little pain medication at the present time. The next day, creatinine level was 3.89. He seemed to have good pain control. The patient said that his primary and only goal was to go home. He wanted his significant other to be his primary decision maker for his healthcare if he was unable to make a decision. She said that she and the patient has spoken about what he wished with his care, but the patient was unwilling to complete a living will at this time because he felt that he was too sick. He remained afebrile. He had no new issues. On 07/17/2016, he had no new complaints. He was seen by Dr. Helder Vizcarra for a second opinion regarding surgery. The patient had had intractable back and leg pain. He said his legs would feel too weak to carry him and would cause him to fall. He said his legs would just give out. He said that he had been using a wheelchair prior to admission. He agreed with Dr. Austin' assessment that we should certainly try to avoid surgery given his medical comorbidities. There was a real significant chance of the patient not being able to survive the extent of surgery that would be necessary. He recommended continued medical management of his infection and did not recommend a significantly invasive spinal surgery procedure. The patient was happy with this and agreed that he did not want to have any surgery related to his spine at this time. Dr. Burke Beck placed a right IJ PermCath. The patient has remained stable, and discharge instructions were given. Due to his improved and stable condition, he was discharged home with the above-stated instructions. Information collected by: Jocelyn Wolfe I submit the above information as my discharge summary. SPENCER/LISSETT Uri Mosher M.D. / [id number] CC: Nas Hazel M.D. Scott Hodges, D.O. William Rowe, M.D. Robert Warren Goldmann, M.D. Discharge Summary [address] [address] NAME: JUDIE MARK : 65 STATUS : DIS IN PAT#: [id number] AGE: 50 ADM/REG DATE : 07/06/16 MR#: [id number] REPORT SERV DATE: 07/29/16 DICTATED BY: URI MOSHER DATE: 07/29/16 REPORT STATUS : Draft TRANSCRIBED BY: LISSETT DATE: 07/29/16 Nas Ortiz M.D. Helder Vizcarra, DO
[~2016-07-05 22:10] MED LIST: ASAB PO; CAT1 PO; COREG12 PO; COREG25 PO; COZAAR100 MG PO; DULERA 100 MCG/13 GM INH; DULERA 200 MCG/13 GM INH; FESO4 PO; HUMALOG SC; INSULIN; LEVEMIR SC; LONITEN2.5 PO; MSCONT60 PO; MSCONTIN PO; NOVOLOG SC; PERCOCET 10/325MG PO; PERCOCET1 TA4 PO; PROVHFA INH; REQUIP25 PO; SPIRIVA INH; VANCO1P IV; VIREAD300 MG PO
[2016-07-05 22:38] LABS: ALLENS TEST Pos; BE (BASE EXCESS) -4.5 MEQ/L (0 +/- 2.5); CARBOXYHEMOGLOBIN 3.7 % (0-3); DEVICE Nasal Cannula 4; HCO3 (ACTUAL BICARBONATE) 19.5 MEQ/L (23-27); HEMOBLOGIN CONTENT 8.5 G/DL (14-18); INSTRUMENT SERIAL # 8087; METHEMOGLOBIN 0.4 % (0-3); O2 CONTENT 11.2 VOL% (18-24); OPERATOR ID 17589; PCO2 (CO2 TENSION) 32 MMHG (35-45); PO2 (O2 TENSION) 85 MMHG (79-93); SAMPLE Arterial; pH 7.41 (7.37-7.43)
[2016-07-05 23:25] LABS: BASOPHILS 0.2 %; BASOPHILS ABSOLUTE 0.01 10/3/uL (0.0-0.16); EOSINOPHILS 0.2 %; EOSINOPHILS ABSOLUTE 0.01 10/3/uL (0.0-0.53); ER CBC TAT 0 Hrs 08 Mins; HEMATOCRIT 25.2 % (40.0-51.0); HEMOGLOBIN 8.3 g/dL (13.6-17.8); IMMATURE GRANULOCYTES 0.6 %; IMMATURE GRANULOCYTES ABSOLUTE 0.04 10/3/uL (0.0-0.11); LYMPHOCYTES 13.5 %; LYMPHOCYTES ABSOLUTE 0.86 10/3/uL (0.67-4.30); MANUAL DIFF NO %; MEAN CORPUS HGB CONC 32.9 g/dL (32.0-36.0); MEAN CORPUSCULAR HEMOGLOB 27.6 pg (26.0-34.0); MEAN CORPUSCULAR VOLUME 83.7 fL (80-100); MEAN PLATELET VOLUME 9.9 fL (9.2-13.0); MONOCYTES 4.3 %; MONOCYTES ABSOLUTE 0.27 10/3/uL (0.21-1.20); NEUTROPHILS 81.2 %; NEUTROPHILS ABSOLUTE 5.16 10/3/uL (2.02-8.40); PLATELET COUNT 134 10/3/uL (150-400); RBC DISTRIBUTION WIDTH 16.6 % (12.0-16.0); RED CELL COUNT 3.01 10/6/uL (4.7-6.1); WHITE BLOOD CELLS 6.4 10/3/uL (4.5-10.5)
[2016-07-05] MEDS ORDERED: COREG12 PO (23:28)
[2016-07-05] MEDS ORDERED: PROVHFA INH (23:28)
[2016-07-05] MEDS ORDERED: HUMALOG SC (23:28)
[2016-07-05] MEDS ORDERED: LEVEMIR SC (23:28)
[2016-07-05] MEDS ORDERED: COZAAR100 MG PO (23:29)
[2016-07-05] MEDS ORDERED: PRILOSEC40 MG PO (23:31)
[2016-07-05] MEDS ORDERED: DULERA 200 MCG/13 GM INH (23:31)
[2016-07-05 23:35] LABS: INTERNATIONAL NORMAL RATI 1.2 UNITS (-); PARTIAL THROMBO TIME 44.4 SEC (22.5-37.2); PROTIME (NOT ORD) 15.2 SEC (12.0-14.5)
[2016-07-05 23:39] LABS: A/G RATIO 0.4 (0.7-1.9); ALBUMIN 2.3 G/DL (3.5-5.0); ALKALINE PHOSPHATASE 97 U/L (45-117); BUN (BLOOD UREA NITROGEN) 32 MG/DL (6-23); CALCIUM, SERUM 8.1 MG/DL (8.5-10.4); CHLORIDE, SERUM 92 MMOL/L (96-112); CO2 (CARBON DIOXIDE) 24 MMOL/L (24-34); CREATININE 4.94 MG/DL (0.70-1.30); GFR AFRICAN AMERICAN 15 ML/MIN (>=60); GFR NON AFRICAN AMERICAN 13 ML/MIN (>=60); GLOBULIN 6.3 G/DL (2.5-4.1); GLUCOSE, SERUM 124 MG/DL (60-99); POTASSIUM, SERUM 3.9 MMOL/L (3.5-5.3); SGOT(AST) 23 U/L (5-40); SGPT(ALT) 11 U/L (5-65); SODIUM, SERUM 127 MMOL/L (135-148); TOTAL BILIRUBIN 0.5 MG/DL (0-1.2); TOTAL PROTEIN 8.6 G/DL (6.0-8.5)
[2016-07-05 23:41] LABS: LACTATE 1.5 MMOL/L (0.3-2.4)
[2016-07-05] MEDS ORDERED: MSCONT15 PO (23:41)
[2016-07-05] MEDS ORDERED: VIREAD 300 MG300 MG PO (23:42)
[2016-07-05] MEDS ORDERED: PERCOCET 10/3251 TAB PO (23:43)
[2016-07-05] MEDS ORDERED: SPIRIVA INH (23:43)
[2016-07-05] MEDS ORDERED: VANCOMYCIN IV (23:47)
[2016-07-05] MEDS ORDERED: BREO ELLIPTA 21 EACH INH (23:48)
[2016-07-06 01:09] LABS: PROCALCITONIN 36.88 ng/mL (<0.5)
[2016-07-06 08:07] LABS: BUN (BLOOD UREA NITROGEN) 35 MG/DL (6-23); CALCIUM, SERUM 7.7 MG/DL (8.5-10.4); CHLORIDE, SERUM 91 MMOL/L (96-112); CO2 (CARBON DIOXIDE) 21 MMOL/L (24-34); CREATININE 4.95 MG/DL (0.70-1.30); GFR AFRICAN AMERICAN 15 ML/MIN (>=60); GFR NON AFRICAN AMERICAN 13 ML/MIN (>=60); GLUCOSE, SERUM 116 MG/DL (60-99); PHOSPHORUS, SERUM 4.3 MG/DL (2.5-4.5); POTASSIUM, SERUM 4.4 MMOL/L (3.5-5.3); SODIUM, SERUM 127 MMOL/L (135-148)
[2016-07-06 14:27] LABS: HEMATOCRIT 23.4 % (40.0-51.0); HEMOGLOBIN 7.5 g/dL (13.6-17.8); MANUAL DIFF YES %; MEAN CORPUS HGB CONC 32.1 g/dL (32.0-36.0); MEAN CORPUSCULAR HEMOGLOB 26.5 pg (26.0-34.0); MEAN CORPUSCULAR VOLUME 82.7 fL (80-100); MEAN PLATELET VOLUME 9.4 fL (9.2-13.0); PLATELET COUNT 103 10/3/uL (150-400); RBC DISTRIBUTION WIDTH 16.3 % (12.0-16.0); RED CELL COUNT 2.83 10/6/uL (4.7-6.1); WHITE BLOOD CELLS 7.9 10/3/uL (4.5-10.5)
[2016-07-06 14:43] LABS: BUN (BLOOD UREA NITROGEN) 37 MG/DL (6-23); CALCIUM, SERUM 8.1 MG/DL (8.5-10.4); CHLORIDE, SERUM 89 MMOL/L (96-112); CO2 (CARBON DIOXIDE) 22 MMOL/L (24-34); CREATININE 5.16 MG/DL (0.70-1.30); GFR AFRICAN AMERICAN 14 ML/MIN (>=60); GFR NON AFRICAN AMERICAN 12 ML/MIN (>=60); GLUCOSE, SERUM 100 MG/DL (60-99); POTASSIUM, SERUM 4.2 MMOL/L (3.5-5.3); SODIUM, SERUM 125 MMOL/L (135-148)
[2016-07-06 15:05] LABS: BAND NEUTROPHILS 1 %; EOSINOPHILS 1 %; EOSINOPHILS ABSOLUTE (CALC) 0.08 10/3/uL (0.0-0.53); LYMPHOCYTES 23 %; LYMPHOCYTES ABSOLUTE (CALC) 1.82 10/3/uL (0.67-4.30); MONOCYTES 9 %; MONOCYTES ABSOLUTE (CALC) 0.71 10/3/uL (0.21-1.20); NEUTROPHILS ABSOLUTE (CALC) 5.29 10/3/uL (2.02-8.40); SEGMENTED NEUTROPHIL (0) 66 %; TOTAL NUCLEATED CELLS 100
[2016-07-06 15:06] LABS: ANISOCYTOSIS 1+ (5-10/OIF) (0-5/OIF); PLATELET ESTIMATE SLT DEC (ADEQUATE)
[2016-07-07 06:43] LABS: BASOPHILS 0.2 %; BASOPHILS ABSOLUTE 0.01 10/3/uL (0.0-0.16); EOSINOPHILS 1.2 %; EOSINOPHILS ABSOLUTE 0.06 10/3/uL (0.0-0.53); HEMATOCRIT 22.4 % (40.0-51.0); HEMOGLOBIN 7.4 g/dL (13.6-17.8); IMMATURE GRANULOCYTES 0.2 %; IMMATURE GRANULOCYTES ABSOLUTE 0.01 10/3/uL (0.0-0.11); LYMPHOCYTES 25.1 %; LYMPHOCYTES ABSOLUTE 1.28 10/3/uL (0.67-4.30); MANUAL DIFF NO %; MEAN CORPUSCULAR HEMOGLOB 27.3 pg (26.0-34.0); MEAN CORPUSCULAR VOLUME 82.7 fL (80-100); MEAN PLATELET VOLUME 9.4 fL (9.2-13.0); MONOCYTES 6.7 %; MONOCYTES ABSOLUTE 0.34 10/3/uL (0.21-1.20); NEUTROPHILS 66.6 %; NEUTROPHILS ABSOLUTE 3.39 10/3/uL (2.02-8.40); PLATELET COUNT 100 10/3/uL (150-400); RBC DISTRIBUTION WIDTH 16.6 % (12.0-16.0); RED CELL COUNT 2.71 10/6/uL (4.7-6.1); WHITE BLOOD CELLS 5.1 10/3/uL (4.5-10.5)
[2016-07-07 06:54] LABS: ALBUMIN 1.8 G/DL (3.5-5.0); CALCIUM, SERUM 7.9 MG/DL (8.5-10.4); CHLORIDE, SERUM 94 MMOL/L (96-112); CO2 (CARBON DIOXIDE) 24 MMOL/L (24-34); GLUCOSE, SERUM 85 MG/DL (60-99); POTASSIUM, SERUM 3.4 MMOL/L (3.5-5.3); SODIUM, SERUM 129 MMOL/L (135-148)
[2016-07-07 06:55] LABS: BUN (BLOOD UREA NITROGEN) 22 MG/DL (6-23); CREATININE 3.72 MG/DL (0.70-1.30); GFR AFRICAN AMERICAN 21 ML/MIN (>=60); GFR NON AFRICAN AMERICAN 18 ML/MIN (>=60); PHOSPHORUS, SERUM 2.9 MG/DL (2.5-4.5)
[2016-07-08 09:40] LABS: BASOPHILS 0.2 %; BASOPHILS ABSOLUTE 0.01 10/3/uL (0.0-0.16); EOSINOPHILS 0.9 %; EOSINOPHILS ABSOLUTE 0.04 10/3/uL (0.0-0.53); IMMATURE GRANULOCYTES 0.5 %; IMMATURE GRANULOCYTES ABSOLUTE 0.02 10/3/uL (0.0-0.11); LYMPHOCYTES 30.5 %; LYMPHOCYTES ABSOLUTE 1.31 10/3/uL (0.67-4.30); MEAN CORPUSCULAR HEMOGLOB 26.4 pg (26.0-34.0); MEAN PLATELET VOLUME 9.2 fL (9.2-13.0); MONOCYTES 6.3 %; MONOCYTES ABSOLUTE 0.27 10/3/uL (0.21-1.20); NEUTROPHILS 61.6 %; NEUTROPHILS ABSOLUTE 2.65 10/3/uL (2.02-8.40); PLATELET COUNT 121 10/3/uL (150-400); RBC DISTRIBUTION WIDTH 16.5 % (12.0-16.0); RED CELL COUNT 2.58 10/6/uL (4.7-6.1); WHITE BLOOD CELLS 4.3 10/3/uL (4.5-10.5)
[2016-07-08 09:45] LABS: HEMATOCRIT 20.6 % (40.0-51.0); HEMOGLOBIN 6.8 g/dL (13.6-17.8); MEAN CORPUSCULAR VOLUME 79.8 fL (80-100)
[2016-07-08 09:46] LABS: MANUAL DIFF NO %
[2016-07-08 09:54] LABS: ALBUMIN 1.9 G/DL (3.5-5.0); BUN (BLOOD UREA NITROGEN) 27 MG/DL (6-23); CALCIUM, SERUM 7.8 MG/DL (8.5-10.4); CHLORIDE, SERUM 94 MMOL/L (96-112); CO2 (CARBON DIOXIDE) 22 MMOL/L (24-34); CREATININE 4.59 MG/DL (0.70-1.30); GFR AFRICAN AMERICAN 16 ML/MIN (>=60); GFR NON AFRICAN AMERICAN 14 ML/MIN (>=60); GLUCOSE, SERUM 109 MG/DL (60-99); PHOSPHORUS, SERUM 3.1 MG/DL (2.5-4.5); POTASSIUM, SERUM 3.5 MMOL/L (3.5-5.3); SODIUM, SERUM 127 MMOL/L (135-148)
[2016-07-08 17:45] LABS: BASOPHILS 0.2 %; BASOPHILS ABSOLUTE 0.01 10/3/uL (0.0-0.16); EOSINOPHILS 0.2 %; EOSINOPHILS ABSOLUTE 0.01 10/3/uL (0.0-0.53); IMMATURE GRANULOCYTES 0.2 %; IMMATURE GRANULOCYTES ABSOLUTE 0.01 10/3/uL (0.0-0.11); LYMPHOCYTES 16.1 %; LYMPHOCYTES ABSOLUTE 0.66 10/3/uL (0.67-4.30); MEAN CORPUSCULAR HEMOGLOB 27.9 pg (26.0-34.0); MEAN PLATELET VOLUME 10.3 fL (9.2-13.0); MONOCYTES 2.7 %; MONOCYTES ABSOLUTE 0.11 10/3/uL (0.21-1.20); NEUTROPHILS 80.6 %; NEUTROPHILS ABSOLUTE 3.29 10/3/uL (2.02-8.40); PLATELET COUNT 130 10/3/uL (150-400); RBC DISTRIBUTION WIDTH 15.9 % (12.0-16.0); WHITE BLOOD CELLS 4.1 10/3/uL (4.5-10.5)
[2016-07-08 17:46] LABS: HEMATOCRIT 36.1 % (40.0-51.0); HEMOGLOBIN 11.9 g/dL (13.6-17.8); MANUAL DIFF NO %; MEAN CORPUSCULAR VOLUME 84.7 fL (80-100); RED CELL COUNT 4.26 10/6/uL (4.7-6.1)
[2016-07-08 18:03] LABS: PARTIAL THROMBO TIME 29.8 SEC (22.5-37.2)
[2016-07-08 18:18] LABS: CALCIUM, SERUM 8.2 MG/DL (8.5-10.4); CHLORIDE, SERUM 99 MMOL/L (96-112); CO2 (CARBON DIOXIDE) 20 MMOL/L (24-34); GLUCOSE, SERUM 108 MG/DL (60-99); SODIUM, SERUM 132 MMOL/L (135-148); TROPONIN I <0.02 NG/ML (<0.05)
[2016-07-08 18:19] LABS: BUN (BLOOD UREA NITROGEN) 15 MG/DL (6-23); CHEST PAIN PROFILE TAT 0 Hrs 41 Mins; CREATININE 3.06 MG/DL (0.70-1.30); GFR AFRICAN AMERICAN 26 ML/MIN (>=60); GFR NON AFRICAN AMERICAN 23 ML/MIN (>=60); POTASSIUM, SERUM 4.2 MMOL/L (3.5-5.3)
[2016-07-09 07:07] LABS: BASOPHILS 0.2 %; BASOPHILS ABSOLUTE 0.01 10/3/uL (0.0-0.16); EOSINOPHILS 0.4 %; EOSINOPHILS ABSOLUTE 0.02 10/3/uL (0.0-0.53); HEMATOCRIT 30.2 % (40.0-51.0); HEMOGLOBIN 9.7 g/dL (13.6-17.8); IMMATURE GRANULOCYTES 0.4 %; IMMATURE GRANULOCYTES ABSOLUTE 0.02 10/3/uL (0.0-0.11); LYMPHOCYTES ABSOLUTE 1.53 10/3/uL (0.67-4.30); MANUAL DIFF NO %; MEAN CORPUS HGB CONC 32.1 g/dL (32.0-36.0); MEAN CORPUSCULAR HEMOGLOB 26.9 pg (26.0-34.0); MEAN CORPUSCULAR VOLUME 83.9 fL (80-100); MEAN PLATELET VOLUME 9.9 fL (9.2-13.0); MONOCYTES 7.8 %; MONOCYTES ABSOLUTE 0.36 10/3/uL (0.21-1.20); NEUTROPHILS 58.2 %; PLATELET COUNT 127 10/3/uL (150-400); RBC DISTRIBUTION WIDTH 16.2 % (12.0-16.0); WHITE BLOOD CELLS 4.6 10/3/uL (4.5-10.5)
[2016-07-09 07:13] LABS: INTERNATIONAL NORMAL RATI 1.2 UNITS (-); PROTIME (NOT ORD) 14.6 SEC (12.0-14.5)
[2016-07-09 07:14] LABS: PARTIAL THROMBO TIME 38.6 SEC (22.5-37.2)
[2016-07-09 07:19] LABS: ALBUMIN 2.2 G/DL (3.5-5.0); BUN (BLOOD UREA NITROGEN) 19 MG/DL (6-23); CALCIUM, SERUM 7.9 MG/DL (8.5-10.4); CHLORIDE, SERUM 95 MMOL/L (96-112); CO2 (CARBON DIOXIDE) 23 MMOL/L (24-34); CREATININE 3.76 MG/DL (0.70-1.30); GFR AFRICAN AMERICAN 20 ML/MIN (>=60); GFR NON AFRICAN AMERICAN 18 ML/MIN (>=60); GLUCOSE, SERUM 103 MG/DL (60-99); PHOSPHORUS, SERUM 2.9 MG/DL (2.5-4.5); POTASSIUM, SERUM 3.7 MMOL/L (3.5-5.3); SODIUM, SERUM 131 MMOL/L (135-148)
[2016-07-10 06:47] LABS: BASOPHILS 0.2 %; BASOPHILS ABSOLUTE 0.01 10/3/uL (0.0-0.16); EOSINOPHILS 0.7 %; EOSINOPHILS ABSOLUTE 0.03 10/3/uL (0.0-0.53); HEMATOCRIT 28.9 % (40.0-51.0); HEMOGLOBIN 9.3 g/dL (13.6-17.8); IMMATURE GRANULOCYTES 0.5 %; IMMATURE GRANULOCYTES ABSOLUTE 0.02 10/3/uL (0.0-0.11); LYMPHOCYTES 36.6 %; LYMPHOCYTES ABSOLUTE 1.57 10/3/uL (0.67-4.30); MANUAL DIFF NO %; MEAN CORPUS HGB CONC 32.2 g/dL (32.0-36.0); MEAN CORPUSCULAR HEMOGLOB 27.7 pg (26.0-34.0); MEAN PLATELET VOLUME 9.5 fL (9.2-13.0); MONOCYTES 7.7 %; MONOCYTES ABSOLUTE 0.33 10/3/uL (0.21-1.20); NEUTROPHILS 54.3 %; NEUTROPHILS ABSOLUTE 2.33 10/3/uL (2.02-8.40); PLATELET COUNT 111 10/3/uL (150-400); RBC DISTRIBUTION WIDTH 16.5 % (12.0-16.0); RED CELL COUNT 3.36 10/6/uL (4.7-6.1); WHITE BLOOD CELLS 4.3 10/3/uL (4.5-10.5)
[2016-07-10 07:01] LABS: BUN (BLOOD UREA NITROGEN) 18 MG/DL (6-23); CALCIUM, SERUM 8.2 MG/DL (8.5-10.4); CHLORIDE, SERUM 97 MMOL/L (96-112); CO2 (CARBON DIOXIDE) 19 MMOL/L (24-34); CREATININE 3.51 MG/DL (0.70-1.30); GFR AFRICAN AMERICAN 22 ML/MIN (>=60); GFR NON AFRICAN AMERICAN 19 ML/MIN (>=60); GLUCOSE, SERUM 89 MG/DL (60-99); PHOSPHORUS, SERUM 2.9 MG/DL (2.5-4.5); POTASSIUM, SERUM 4.2 MMOL/L (3.5-5.3); SODIUM, SERUM 128 MMOL/L (135-148)
[2016-07-10 17:00] LABS: HBV DNA QUANT LOG10 VALUE <1.3 (NOTDET); HBV DNA QUANT RESULT <20 IU/mL (NOTDET)
[2016-07-12 05:19] LABS: BUN (BLOOD UREA NITROGEN) 18 MG/DL (6-23); CALCIUM, SERUM 8.4 MG/DL (8.5-10.4); CHLORIDE, SERUM 96 MMOL/L (96-112); CO2 (CARBON DIOXIDE) 22 MMOL/L (24-34); CREATININE 3.85 MG/DL (0.70-1.30); GFR AFRICAN AMERICAN 20 ML/MIN (>=60); GFR NON AFRICAN AMERICAN 17 ML/MIN (>=60); GLUCOSE, SERUM 87 MG/DL (60-99); POTASSIUM, SERUM 4.4 MMOL/L (3.5-5.3); SODIUM, SERUM 129 MMOL/L (135-148)
[2016-07-13 14:48] LABS: BASOPHILS 0 %; EOSINOPHILS 0.3 %; EOSINOPHILS ABSOLUTE 0.02 10/3/uL (0.0-0.53); HEMOGLOBIN 8.1 g/dL (13.6-17.8); IMMATURE GRANULOCYTES 0.1 %; IMMATURE GRANULOCYTES ABSOLUTE 0.01 10/3/uL (0.0-0.11); LYMPHOCYTES 20.2 %; LYMPHOCYTES ABSOLUTE 1.42 10/3/uL (0.67-4.30); MEAN CORPUS HGB CONC 33.2 g/dL (32.0-36.0); MEAN CORPUSCULAR HEMOGLOB 27.7 pg (26.0-34.0); MEAN CORPUSCULAR VOLUME 83.6 fL (80-100); MEAN PLATELET VOLUME 9.6 fL (9.2-13.0); MONOCYTES 4.3 %; NEUTROPHILS 75.1 %; NEUTROPHILS ABSOLUTE 5.27 10/3/uL (2.02-8.40); RBC DISTRIBUTION WIDTH 17.1 % (12.0-16.0); RED CELL COUNT 2.92 10/6/uL (4.7-6.1)
[2016-07-13 14:50] LABS: HEMATOCRIT 24.4 % (40.0-51.0); MANUAL DIFF NO %; PLATELET COUNT 154 10/3/uL (150-400)
[2016-07-13 15:01] LABS: CALCIUM, SERUM 7.9 MG/DL (8.5-10.4); CHLORIDE, SERUM 92 MMOL/L (96-112); CO2 (CARBON DIOXIDE) 25 MMOL/L (24-34); GLUCOSE, SERUM 94 MG/DL (60-99); POTASSIUM, SERUM 4.6 MMOL/L (3.5-5.3); SODIUM, SERUM 126 MMOL/L (135-148)
[2016-07-13 15:02] LABS: BUN (BLOOD UREA NITROGEN) 32 MG/DL (6-23); CREATININE 5.44 MG/DL (0.70-1.30); GFR AFRICAN AMERICAN 13 ML/MIN (>=60); GFR NON AFRICAN AMERICAN 11 ML/MIN (>=60); PHOSPHORUS, SERUM 4.4 MG/DL (2.5-4.5)
[2016-07-15 05:32] LABS: BASOPHILS 0.2 %; BASOPHILS ABSOLUTE 0.01 10/3/uL (0.0-0.16); EOSINOPHILS 0.3 %; EOSINOPHILS ABSOLUTE 0.02 10/3/uL (0.0-0.53); HEMATOCRIT 25.5 % (40.0-51.0); HEMOGLOBIN 8.4 g/dL (13.6-17.8); IMMATURE GRANULOCYTES 0.3 %; IMMATURE GRANULOCYTES ABSOLUTE 0.02 10/3/uL (0.0-0.11); LYMPHOCYTES ABSOLUTE 1.37 10/3/uL (0.67-4.30); MEAN CORPUS HGB CONC 32.9 g/dL (32.0-36.0); MEAN CORPUSCULAR HEMOGLOB 27.7 pg (26.0-34.0); MEAN CORPUSCULAR VOLUME 84.2 fL (80-100); MEAN PLATELET VOLUME 9.2 fL (9.2-13.0); MONOCYTES 5.2 %; PLATELET COUNT 149 10/3/uL (150-400); RBC DISTRIBUTION WIDTH 17.1 % (12.0-16.0); RED CELL COUNT 3.03 10/6/uL (4.7-6.1); WHITE BLOOD CELLS 5.7 10/3/uL (4.5-10.5)
[2016-07-15 05:35] LABS: MANUAL DIFF NO %
[2016-07-15 05:42] LABS: ALBUMIN 2.2 G/DL (3.5-5.0); CALCIUM, SERUM 8.2 MG/DL (8.5-10.4); CHLORIDE, SERUM 92 MMOL/L (96-112); CO2 (CARBON DIOXIDE) 23 MMOL/L (24-34); GFR AFRICAN AMERICAN 14 ML/MIN (>=60); GFR NON AFRICAN AMERICAN 12 ML/MIN (>=60); GLUCOSE, SERUM 92 MG/DL (60-99); PHOSPHORUS, SERUM 4.5 MG/DL (2.5-4.5); POTASSIUM, SERUM 4.6 MMOL/L (3.5-5.3); SODIUM, SERUM 125 MMOL/L (135-148)
[2016-07-15 05:45] LABS: BUN (BLOOD UREA NITROGEN) 28 MG/DL (6-23)
[2016-07-16 05:48] LABS: BASOPHILS 0.2 %; BASOPHILS ABSOLUTE 0.01 10/3/uL (0.0-0.16); EOSINOPHILS 0.4 %; EOSINOPHILS ABSOLUTE 0.02 10/3/uL (0.0-0.53); HEMATOCRIT 25.2 % (40.0-51.0); HEMOGLOBIN 8.2 g/dL (13.6-17.8); IMMATURE GRANULOCYTES 0.2 %; IMMATURE GRANULOCYTES ABSOLUTE 0.01 10/3/uL (0.0-0.11); LYMPHOCYTES 21.2 %; LYMPHOCYTES ABSOLUTE 1.05 10/3/uL (0.67-4.30); MANUAL DIFF NO %; MEAN CORPUS HGB CONC 32.5 g/dL (32.0-36.0); MEAN CORPUSCULAR HEMOGLOB 27.3 pg (26.0-34.0); MEAN PLATELET VOLUME 9.1 fL (9.2-13.0); MONOCYTES 4.6 %; MONOCYTES ABSOLUTE 0.23 10/3/uL (0.21-1.20); NEUTROPHILS 73.4 %; NEUTROPHILS ABSOLUTE 3.63 10/3/uL (2.02-8.40); PLATELET COUNT 162 10/3/uL (150-400); RBC DISTRIBUTION WIDTH 17.1 % (12.0-16.0)
[2016-07-16 05:59] LABS: ALBUMIN 2.1 G/DL (3.5-5.0); BUN (BLOOD UREA NITROGEN) 20 MG/DL (6-23); CHLORIDE, SERUM 95 MMOL/L (96-112); CO2 (CARBON DIOXIDE) 23 MMOL/L (24-34); CREATININE 3.89 MG/DL (0.70-1.30); GFR AFRICAN AMERICAN 20 ML/MIN (>=60); GFR NON AFRICAN AMERICAN 17 ML/MIN (>=60); GLUCOSE, SERUM 95 MG/DL (60-99); PHOSPHORUS, SERUM 4.1 MG/DL (2.5-4.5); POTASSIUM, SERUM 4.2 MMOL/L (3.5-5.3); SODIUM, SERUM 131 MMOL/L (135-148)
[2016-07-17 08:02] LABS: BASOPHILS 0.2 %; BASOPHILS ABSOLUTE 0.01 10/3/uL (0.0-0.16); EOSINOPHILS 0.3 %; EOSINOPHILS ABSOLUTE 0.02 10/3/uL (0.0-0.53); HEMOGLOBIN 9.1 g/dL (13.6-17.8); IMMATURE GRANULOCYTES 0.2 %; IMMATURE GRANULOCYTES ABSOLUTE 0.01 10/3/uL (0.0-0.11); LYMPHOCYTES 27.9 %; LYMPHOCYTES ABSOLUTE 1.61 10/3/uL (0.67-4.30); MEAN CORPUS HGB CONC 32.2 g/dL (32.0-36.0); MEAN CORPUSCULAR HEMOGLOB 26.9 pg (26.0-34.0); MEAN CORPUSCULAR VOLUME 83.7 fL (80-100); MEAN PLATELET VOLUME 9.3 fL (9.2-13.0); MONOCYTES 4.2 %; MONOCYTES ABSOLUTE 0.24 10/3/uL (0.21-1.20); NEUTROPHILS 67.2 %; NEUTROPHILS ABSOLUTE 3.88 10/3/uL (2.02-8.40); PLATELET COUNT 174 10/3/uL (150-400); RED CELL COUNT 3.38 10/6/uL (4.7-6.1); WHITE BLOOD CELLS 5.8 10/3/uL (4.5-10.5)
[2016-07-17 08:03] LABS: HEMATOCRIT 28.3 % (40.0-51.0)
[2016-07-17 08:04] LABS: MANUAL DIFF NO %
[2016-07-17 08:19] LABS: ALBUMIN 2.3 G/DL (3.5-5.0); BUN (BLOOD UREA NITROGEN) 27 MG/DL (6-23); CALCIUM, SERUM 8.1 MG/DL (8.5-10.4); CHLORIDE, SERUM 92 MMOL/L (96-112); CO2 (CARBON DIOXIDE) 24 MMOL/L (24-34); CREATININE 4.87 MG/DL (0.70-1.30); GFR AFRICAN AMERICAN 15 ML/MIN (>=60); GFR NON AFRICAN AMERICAN 13 ML/MIN (>=60); GLUCOSE, SERUM 87 MG/DL (60-99); PHOSPHORUS, SERUM 4.9 MG/DL (2.5-4.5); POTASSIUM, SERUM 4.9 MMOL/L (3.5-5.3); SODIUM, SERUM 127 MMOL/L (135-148)
[2016-07-17] MEDS ORDERED: CLARIT10 PO (17:16)
[2016-11-28] MEDS ORDERED: DSS PO (23:09)
[2016-11-28] MEDS ORDERED: MSCONT60 PO (23:09)
[2016-11-28] MEDS ORDERED: ROXICODONE15 MG PO (23:10)
[2016-11-28] MEDS ORDERED: REM15 PO (23:10)
[2016-11-28] MEDS ORDERED: LEVEMIR (23:10)
[2016-11-28] MEDS ORDERED: SPIRIVA INH (23:11)
[2016-11-28] MEDS ORDERED: BREO ELLIPTA INH (23:11)
[2016-11-28] MEDS ORDERED: PROAIR HFA INH (23:11)
[2016-11-28] MEDS ORDERED: COREG12 PO (23:11)
[2016-11-28] MEDS ORDERED: PRILOSEC40 MG PO (23:11)
[2016-11-28] MEDS ORDERED: REG PO (23:12)
[2016-12-06] MEDS ORDERED: LEVAQUIN5T PO (19:26)
[2016-12-06] MEDS ORDERED: NEPHRO PO (19:32)
[2016-12-22] MEDS ORDERED: ROXICODONE15 MG PO ×2 (15:56)
[2016-12-22] MEDS ORDERED: MSCONT60 PO (15:56)
[2016-12-22] MEDS ORDERED: LEVEMFLXPN SC (15:57)
[2016-12-22] MEDS ORDERED: REM15 PO (15:57)
[2016-12-22] MEDS ORDERED: COREG12 PO (15:58)
[2016-12-22] MEDS ORDERED: BREO ELLIPTA 21 EACH INH (15:58)
[2016-12-22] MEDS ORDERED: Proair Hfa (15:59)
[2016-12-22] MEDS ORDERED: PRILOSEC40 MG PO (15:59)
[2016-12-22] MEDS ORDERED: Spiriva Handihaler (16:00)
[2016-12-22] MEDS ORDERED: DSS PO (16:01)
[2016-12-22] MEDS ORDERED: REG PO (16:01)
[2016-12-22] MEDS ORDERED: PROTONIX PO (16:02)
[2016-12-22] MEDS ORDERED: NEPHRO PO (16:02)
[2016-12-22] MEDS ORDERED: DULERA 200 MCG/13 GM INH (16:02)
[2016-12-22] MEDS ORDERED: [UNRECOGNIZED DRUG - OTHER] NAS (16:04)
[2016-12-28] MEDS ORDERED: METHATAB10 PO (12:40)
[2016-12-28] MEDS ORDERED: PROAMATINE10 MG PO (12:43)
[2016-12-28] MEDS ORDERED: BACTRIM DS1 TAB PO (12:45)
[2016-12-28] MEDS ORDERED: LEVAQUIN5T PO ×2 (12:50→12:51)
[2016-12-28] MEDS ORDERED: BREO ELLIPTA 21 EACH INH (14:37)
[2016-12-28] MEDS ORDERED: DULERA 200 MCG/13 GM INH (14:38)
[2016-12-28] MEDS ORDERED: VENTOLIN HFA INH (14:38)
[2016-12-28] MEDS ORDERED: SPIRIVA INH (14:38)
== END 2016-07-17 20:10 | disposition home or self-care (01) | DRG 853 ==
LOC: ER 22:10 → 2SO 07-06 01:55
PROVIDERS: Hospitalist; Internal Medicine Infectious Disease; Internal Medicine Nephrology; Nurse Practitioner; Registered Nurse
PROC: 5A1D60Z (ICD-10-PCS; principal; 2016-07-06)
PROC: 0QB03ZX Excision of Lumbar Vertebra, Percutaneous Approach, Diagnostic (ICD-10-PCS; principal; 2016-07-06)
PROC: 0JPV0XZ Removal of Tunneled Vascular Access Device from Upper Extremity Subcutaneous Tissue and Fascia, Open Approach (ICD-10-PCS; 2016-07-11)
PROC: 05HM33Z Insertion of Infusion Device into Right Internal Jugular Vein, Percutaneous Approach (ICD-10-PCS; 2016-07-12)
PROC: B5131ZA Fluoroscopy of Right Jugular Veins using Low Osmolar Contrast, Guidance (ICD-10-PCS; 2016-07-12)
PROC: B543ZZA Ultrasonography of Right Jugular Veins, Guidance (ICD-10-PCS; 2016-07-12)
PROC: 0JH63XZ Insertion of Tunneled Vascular Access Device into Chest Subcutaneous Tissue and Fascia, Percutaneous Approach (ICD-10-PCS; 2016-07-17)
PROC: 05HM33Z Insertion of Infusion Device into Right Internal Jugular Vein, Percutaneous Approach (ICD-10-PCS; 2016-07-17)
PROC: B5131ZA Fluoroscopy of Right Jugular Veins using Low Osmolar Contrast, Guidance (ICD-10-PCS; 2016-07-17)
DX: A41.89 Other specified sepsis (principal); N18.6 End stage renal disease; J90 Pleural effusion, not elsewhere classified; R64 Cachexia; I12.0 Hypertensive chronic kidney disease with stage 5 chronic kidney disease or end stage renal disease; N17.9 Acute kidney failure, unspecified; I27.2 Other secondary pulmonary hypertension; K72.90 Hepatic failure, unspecified without coma; T82.7XXA Infection and inflammatory reaction due to other cardiac and vascular devices, implants and grafts, initial encounter; B19.10 Unspecified viral hepatitis B without hepatic coma; M46.26 Osteomyelitis of vertebra, lumbar region; M46.46 Discitis, unspecified, lumbar region; Z99.2 Dependence on renal dialysis; E11.22 Type 2 diabetes mellitus with diabetic chronic kidney disease; J44.9 Chronic obstructive pulmonary disease, unspecified; F17.210 Nicotine dependence, cigarettes, uncomplicated; B19.20 Unspecified viral hepatitis C without hepatic coma; E11.42 Type 2 diabetes mellitus with diabetic polyneuropathy; I36.1 Nonrheumatic tricuspid (valve) insufficiency; I34.0 Nonrheumatic mitral (valve) insufficiency; Z88.5 Allergy status to narcotic agent; Z88.8 Allergy status to other drugs, medicaments and biological substances
CPT/HCPCS: 36415; 36556; 36558; 36600; 71010; 71250; 74176; 77001; 77012; 80048; 80053; 80069; 80202; 81001; 82805; 82962; 83605; 83735; 84145; 84484; 85025; 85610; 85730; 86850; 86900; 86901; 86920; 87015; 87040; 87070; 87075; 87077; 87102; 87116; 87150; 87184; 87186; 87205; 87517; 88307; 88311; 88312; 93005; 94640; 96365; 96367; 96375; 99285; A9270-GY; C1713; C1750; C1752; C8929; G0257; J0690; J0692; J0885; J1170; J1956; J2185; J2250; J2405; J3010; J3370; P9016; P9047; Q9957

== ENCOUNTER 2016-08-15 19:48 | Inpatient (IN) | payer MEDICARE, OTHER ==
--- NOTE | ~2016-08-15 | HP ---
History And Physical [facility] [address] [place]. [address] NAME: JUDIE MARK : 65 STATUS : ADM IN [facility]#: [id number] AGE: 50 ADM/REG DATE : 08/15/16 MR#: [id number] REPORT SERV DATE: 08/16/16 DICTATED BY: LAUREN THRASHER DATE: 08/15/16 REPORT STATUS : Draft TRANSCRIBED BY: MODL DATE: 08/15/16 DATE OF ADMISSION: 08/15/2016 Nephrology History and Physical REASON FOR ADMISSION: Shortness of breath. HISTORY OF PRESENT ILLNESS: The patient is a 50-year-old gentleman with known end-stage renal disease, on hemodialysis on a Friday, , Friday schedule. The patient went to dialysis today, complains of worsening shortness of breath. He subsequently stopped his treatment early. He then presented to [facility] Emergency Department, the patient subsequently was transferred down to [facility] for elevation in care and emergent hemodialysis. The patient has had a recent hospitalization here at [facility] in July per the patient's report. At that time, he was diagnosed with spinal osteo and has been on what appears in the record to be vancomycin. The patient is also complaining of some leg and back pain which he says is chronic. His abdominal distention, he says is worse, and he has some abdominal pain. The patient states that he normally has low blood pressure with dialysis but it improves towards the end of his treatment. PAST MEDICAL HISTORY: Significant for end-stage renal disease, cirrhosis, spinal osteo, diabetes, chronic pain, COPD on chronic oxygen, chronic debilitation. The patient states he is unable to ambulate. SOCIAL HISTORY: Tobacco use, currently smokes every day, about one pack per day. No reported alcohol use. FAMILY HISTORY: Unknown. MEDICATIONS: Consist of Coreg, Cozaar, Dulera, Humalog, Levemir, MS Contin, Percocet, ProAir, Requip, Spiriva, vancomycin, viread. ALLERGIES: TRAMADOL, STADOL, HYDROCODONE, LYRICA, NEURONTIN. REVIEW OF SYSTEMS: As described above. All other systems reviewed and are negative. PHYSICAL EXAMINATION: GENERAL: He was seen in intensive care unit. Currently hooking him up to the hemodialysis machine. He has nasal cannula oxygen in place. His respirations are nonlabored. His systolic blood pressures in the 90s. He is awake and alert, , in no acute distress. Answers questions appropriately. He has features of cirrhosis. HEENT: Head is atraumatic, normocephalic. NECK: Soft, supple. CARDIOVASCULAR SYSTEM: Regular rate and rhythm. No thrills, heaves, or murmurs. RESPIRATORY SYSTEM: Few basal rhonchi and crackles. Normal effort. Nonlabored. Nasal cannula oxygen. History And Physical [place] [id number] [facility] [place]. [address] NAME: JUDIE MARK : 65 STATUS : ADM IN [facility]#: [id number] AGE: 50 ADM/REG DATE : 08/15/16 MR#: [id number] REPORT SERV DATE: 08/16/16 DICTATED BY: LAUREN THRASHER DATE: 08/15/16 REPORT STATUS : Draft TRANSCRIBED BY: LISSETT DATE: 08/15/16 ABDOMEN: Protuberant, somewhat distended. Mild tenderness. No rebound or guarding. He does have flank superficial edema, pitting. He does have lower extremity edema also. SKIN: Warm and dry. He has chronic venous stasis changes of the lower extremities. PSYCH: He appears to have normal mood, affect, and behavior. LABORATORY DATA: White count is 4, hemoglobin is 7.9, hematocrit is 25, platelets are 153, this is from outside facility. Sodium 135, potassium 4.2, chloride 98, CO2 of 26, BUN 14, creatinine 2.5, glucose 99, calcium 8.1, albumin 2.4. ALT is less than 8, alkaline phosphatase 106, AST is 15. INR 1.0. Abdominal series was done at outside facility. No reported acute abnormality. Interpretation is read as no air-fluid level . IMPRESSION AND PLAN: This is an elderly gentleman, looks older stated age, with multiple comorbidities and medical problems with known cirrhosis. The patient states he thinks he has stage IV cirrhosis. He does have the features of chronic liver disease. We will give him some albumin to help with his blood pressure while on the dialysis machine tonight. For his anemia, we will transfuse with next dialysis treatment in the morning. We will give a g of vancomycin due to his history of spinal osteo and also this abdominal discomfort. We will start him on cefotaxime for possible spontaneous bacterial peritonitis. We will obtain an abdominal ultrasound in the morning to evaluate for ascites and possible need for paracentesis. We will check cardiac enzymes every six hours and adjust if become abnormal. We will resume his home COPD medications. We will ask respiratory therapy to see. We will place him on a sliding scale insulin, do Accu-Cheks every two hours. We will make the patient n.p.o. except for medications and clear liquids this evening. We will make further recommendations and adjustments as needed. RS/MODL Lauren Thrasher M.D. / [id number] CC: Nas Goodrich M.D.
--- NOTE | ~2016-08-15 | DS ---
Discharge Summary [facility] [address] [place]. [address] NAME: JUDIE MARK : 65 STATUS : DIS IN PAT#: [id number] AGE: 50 ADM/REG DATE : 08/15/16 MR#: [id number] REPORT SERV DATE: 08/29/16 DICTATED BY: LAUREN THRASHER DATE: 08/28/16 REPORT STATUS : Draft TRANSCRIBED BY: LISSETT DATE: 08/28/16 Data Collection from hospitalization DISCHARGE DIAGNOSES: 1. [id number]-cd-sqscsjx anemia. 2. Gastrointestinal bleed status post EGD with cautery. 3. Cirrhosis. 4. Hepatitis B and C. 5. End-stage renal disease. 6. Spinal osteomyelitis. 7. Diabetes mellitus. 8. Chronic obstructive pulmonary disease. 9. Chronic pain. 10.Hypertension. 11.Tobacco use. 12.Congestive heart failure. CONSULTATION: Dr. Jose Juan Mayfield. PROCEDURES PERFORMED: 1. Upper GI endoscopy, 08/19/2016. 2. Abdominal ultrasound, 08/16/2016. DISCHARGE MEDICATIONS: ProAir one puff via inhaler twice a day, Coreg 12.5 mg twice a day, Breo Ellipta two puffs via inhaler daily, Levemir 10 units subcutaneously at bedtime, Humalog as instructed, Levaquin 500 mg every 48 hours, Cozaar 25 mg daily, Reglan as instructed, Dulera two puffs via inhaler twice a day, MS Contin 30 mg every eight hours, Percocet 10/325 one tablet every eight hours as needed, Protonix 40 mg twice a day, MiraLAX powder one packet daily, Requip 0.25 mg daily, Viread 300 mg every seven days as instructed, Spiriva HandiHaler one capsule via inhaler every morning. CONDITION AT DISCHARGE: Stable. DISPOSITION: The patient was discharged home to be followed by home health care on a 2500- calorie low potassium, renal/diabetic diet and 1 L fluid restriction daily and activities as instructed. FOLLOWUP: He would follow up for hemodialysis, 08/22/2016. He would follow up with Dr. Dorothy Howell [place], [place]. HOSPITAL COURSE: This is a 50-year-old man, who has end-stage renal disease. He went to dialysis on the day of this admission and was complaining of worsening shortness of breath. He subsequently stopped his treatment early. He presented to the [facility] Emergency Department and was subsequently transferred to [facility] for elevation in care and emergent hemodialysis. The patient had a recent hospitalization here at [facility] in July according to the patient's report. At that time, he was diagnosed with spinal osteomyelitis and had been on what appears in the record to be vancomycin. He also complained of some leg and back pain, which he said was chronic. His abdominal distention he said was worse and he Discharge Summary [address] [place]. [address] NAME: JUDIE MARK : 65 STATUS : DIS IN PAT#: [id number] AGE: 50 ADM/REG DATE : 08/15/16 MR#: [id number] REPORT SERV DATE: 08/29/16 DICTATED BY: LAUREN THRASHER DATE: 08/28/16 REPORT STATUS : Draft TRANSCRIBED BY: LISSETT DATE: 08/28/16 did have some abdominal pain. He said that he normally has low blood pressure with dialysis, but this improved toward the end of his treatment. The patient was admitted at this time for further evaluation and treatment. Upon admission, his home COPD medications were going to be resumed. He was going to be given some albumin to help with his blood pressure while on dialysis that evening. He was going to be transfused with his next dialysis treatment the following morning. He was going to be given vancomycin due to his history of spinal osteomyelitis and his abdominal discomfort. Cefotaxime was going to be started for possible spontaneous bacterial peritonitis. An abdominal ultrasound would be performed the following morning to evaluate for ascites and possible need for paracentesis. We would check cardiac enzymes every six hours and adjust if these became abnormal. Sliding scale insulin was started. He would be held n.p.o., except for clear liquids and medication that evening. The following day, hemodialysis therapy was performed. Hemoglobin level was stable. Home antibiotics were going to be restarted. The patient was seen by Dr. Jose Juan Mayfield regarding generalized abdominal pain and anemia. It was felt that the patient would need to undergo an upper GI endoscopy. His records from [facility] were going to be requested. The patient was going to be moved out of the ICU. Antibiotics were continued. The patient said he was feeling better. Plans were being made to proceed with EGD. On the , he complained of hurting all over. He had no active bleeding. He was taken to the endoscopic suite by Dr. Jose Juan Mayfield, where he underwent upper GI endoscopy. He had a normal esophagus. He had large amount of food residue in the stomach. Gastritis was seen. He had a normal examined duodenum. There was a single nonbleeding angioectasia in the duodenum. This was treated with thermal therapy. Discharge planning was performed. On 08/20/2016, he had no new complaints, other than his chronic pain complaints. He was alert and cooperative. He had no focal deficits. Proton pump inhibitor and Reglan were continued. Vancomycin, Bactrim, and Levaquin were continued. Discharge instructions were given. Due to his improved and stable condition, he was discharged home to be followed by home health care with the above- stated instructions. Information collected by: Jocelyn Wolfe I submit the above information as my discharge summary. TG/BERTAL Lauren Thrasher M.D. / [id number] CC: Nas Goodrich M.D.
--- NOTE | ~2016-08-15 | EGD ---
EGD REPORT [facility] [address] [address] NAME: GAL TORIBIO : 65 STATUS : ADM IN PAT#: [id number] AGE: 50 ADM/REG DATE : 08/15/16 MR#: [id number] REPORT SERV DATE: 08/19/16 DICTATED BY: SERA JORDAN DATE: 08/19/16 REPORT STATUS : Draft TRANSCRIBED BY: [facility] DATE: 08/19/16 Endoscopy Center Patient Name: Gal Toribio Date of : 1965 Attending MD: SERA JORDAN MD Procedure Date No Time: 08/19/2016 Procedure: Upper GI endoscopy Indications: Generalized abdominal pain, Anemia Medicines: Propofol per Anesthesia Complications: No immediate complications. Procedure: Pre-Anesthesia Assessment: - ASA Grade Assessment: IV - A patient with severe systemic disease that is a constant threat to life. After obtaining informed consent, the endoscope was passed under direct vision. Throughout the procedure, the patient's blood pressure, pulse, and oxygen saturations were monitored continuously. The GIF [id number] was introduced through the mouth, and advanced to the third part of duodenum. The upper GI endoscopy was accomplished without difficulty. The patient tolerated the procedure well. Findings: The examined esophagus was normal. A large amount of food (residue) was found in the gastric fundus, in the gastric body and in the gastric antrum. Mild inflammation was found in the entire examined stomach. The examined duodenum was normal. A single medium-sized angioectasia without bleeding was found in the second part of the duodenum. Vaporization for hemostasis using bipolar probe was successful. Impression: - Normal esophagus. - A large amount of food (residue) in the stomach. - Gastritis. - Normal examined duodenum. - A single non-bleeding angioectasia in the duodenum. Treated with thermal therapy. Recommendation: - Await pathology results. - Use Protonix (pantoprazole) 40 mg PO BID. - Use metoclopramide 10 mg PO QID; 30 min AC and HS. - take before each meal and at bedtime - Check hemoglobin q 8 hours for two days. - Clear liquid diet. EGD REPORT [address] [address] NAME: GAL TORIBIO : 65 STATUS : ADM IN [facility]#: [id number] AGE: 50 ADM/REG DATE : 08/15/16 MR#: [id number] REPORT SERV DATE: 08/19/16 DICTATED BY: SERA JORDAN DATE: 08/19/16 REPORT STATUS : Draft TRANSCRIBED BY: [employer] DATE: 08/19/16 - [facility]. Procedure Code(s): --- Professional --- 36389, Esophagogastroduodenoscopy, flexible, transoral; with control of bleeding, any method Diagnosis Code(s): --- Professional --- K29.70, Gastritis, unspecified, without bleeding K31.819, Angiodysplasia of stomach and duodenum without bleeding R10.84, Generalized abdominal pain D64.9, Anemia, unspecified CPT copyright 2013 [employer]. All rights reserved. The codes documented in this report are preliminary and upon recreation instructor review may be revised to meet current compliance requirements. Sera Jordan MD SERA JORDAN MD 08/19/2016 5:17 PM This report has been signed electronically. Number of Addenda: 0 Note Initiated On: 08/19/2016 1:55 PM Scope Withdrawal Time 0 hours 0 minutes 0 seconds [id number] [place] [id number]
[~2016-08-15 19:48] MED LIST changes: +BREO ELLIPTA 21 EACH INH; +CLARIT10 PO; +MSCONT15 PO; +PERCOCET 10/3251 TAB PO; +PRILOSEC40 MG PO; +VANCOMYCIN IV; +VIREAD 300 MG300 MG PO
[2016-08-15 23:07] LABS: TROPONIN I 0.06 NG/ML (<0.05)
[2016-08-16 04:39] LABS: BASOPHILS 0.3 %; BASOPHILS ABSOLUTE 0.01 10/3/uL (0.0-0.16); EOSINOPHILS 2.1 %; EOSINOPHILS ABSOLUTE 0.06 10/3/uL (0.0-0.53); IMMATURE GRANULOCYTES 0.3 %; IMMATURE GRANULOCYTES ABSOLUTE 0.01 10/3/uL (0.0-0.11); LYMPHOCYTES 41.5 %; LYMPHOCYTES ABSOLUTE 1.19 10/3/uL (0.67-4.30); MEAN CORPUS HGB CONC 31.5 g/dL (32.0-36.0); MEAN CORPUSCULAR HEMOGLOB 26.7 pg (26.0-34.0); MEAN CORPUSCULAR VOLUME 84.8 fL (80-100); MEAN PLATELET VOLUME 8.9 fL (9.2-13.0); MONOCYTES 14.3 %; MONOCYTES ABSOLUTE 0.41 10/3/uL (0.21-1.20); NEUTROPHILS 41.5 %; NEUTROPHILS ABSOLUTE 1.19 10/3/uL (2.02-8.40); RBC DISTRIBUTION WIDTH 18.1 % (12.0-16.0)
[2016-08-16 04:40] LABS: HEMATOCRIT 18.4 % (40.0-51.0); HEMOGLOBIN 5.8 g/dL (13.6-17.8); PLATELET COUNT 113 10/3/uL (150-400); RED CELL COUNT 2.17 10/6/uL (4.7-6.1); WHITE BLOOD CELLS 2.9 10/3/uL (4.5-10.5)
[2016-08-16 04:41] LABS: MANUAL DIFF NO %
[2016-08-16 04:46] LABS: INTERNATIONAL NORMAL RATI 1.2 UNITS (-); PROTIME (NOT ORD) 15.4 SEC (12.0-14.5)
[2016-08-16 04:48] LABS: PARTIAL THROMBO TIME 60.6 SEC (22.5-37.2)
[2016-08-16 05:02] LABS: ALBUMIN 2.2 G/DL (3.5-5.0); CALCIUM, SERUM 7.8 MG/DL (8.5-10.4); CPK (IF ELEVATED MB BANDS) 11 U/L (0-200); GLUCOSE, SERUM 92 MG/DL (60-99); POTASSIUM, SERUM 4.2 MMOL/L (3.5-5.3); SGOT(AST) 9 U/L (5-40); SGPT(ALT) 6 U/L (5-65); TOTAL BILIRUBIN 0.4 MG/DL (0-1.2); TROPONIN I 0.04 NG/ML (<0.05)
[2016-08-16 05:07] LABS: A/G RATIO 0.5 (0.7-1.9); ALKALINE PHOSPHATASE 85 U/L (45-117); BUN (BLOOD UREA NITROGEN) 9 MG/DL (6-23); CHLORIDE, SERUM 103 MMOL/L (96-112); CO2 (CARBON DIOXIDE) 29 MMOL/L (24-34); CREATININE 2.06 MG/DL (0.70-1.30); GFR AFRICAN AMERICAN 42 ML/MIN (>=60); GFR NON AFRICAN AMERICAN 36 ML/MIN (>=60); GLOBULIN 4.6 G/DL (2.5-4.1); SODIUM, SERUM 139 MMOL/L (135-148); TOTAL PROTEIN 6.8 G/DL (6.0-8.5)
[2016-08-16] MEDS ORDERED: COZ25 PO (07:59)
[2016-08-16] MEDS ORDERED: PROAIRRESP INH (08:06)
[2016-08-16] MEDS ORDERED: REQUIP25 PO (08:09)
[2016-08-16 21:06] LABS: HEMATOCRIT 24.6 % (40.0-51.0); HEMOGLOBIN 8.2 g/dL (13.6-17.8)
[2016-08-17 05:27] LABS: BASOPHILS 0.3 %; BASOPHILS ABSOLUTE 0.01 10/3/uL (0.0-0.16); EOSINOPHILS 2.5 %; EOSINOPHILS ABSOLUTE 0.08 10/3/uL (0.0-0.53); HEMATOCRIT 24.6 % (40.0-51.0); HEMOGLOBIN 8.1 g/dL (13.6-17.8); IMMATURE GRANULOCYTES 0.3 %; IMMATURE GRANULOCYTES ABSOLUTE 0.01 10/3/uL (0.0-0.11); LYMPHOCYTES 53.4 %; LYMPHOCYTES ABSOLUTE 1.74 10/3/uL (0.67-4.30); MEAN CORPUS HGB CONC 32.9 g/dL (32.0-36.0); MEAN CORPUSCULAR HEMOGLOB 27.9 pg (26.0-34.0); MEAN CORPUSCULAR VOLUME 84.8 fL (80-100); MEAN PLATELET VOLUME 9.1 fL (9.2-13.0); MONOCYTES 9.8 %; MONOCYTES ABSOLUTE 0.32 10/3/uL (0.21-1.20); NEUTROPHILS 33.7 %; PLATELET COUNT 114 10/3/uL (150-400); RBC DISTRIBUTION WIDTH 17.5 % (12.0-16.0); WHITE BLOOD CELLS 3.3 10/3/uL (4.5-10.5)
[2016-08-17 05:29] LABS: MANUAL DIFF NO %
[2016-08-17 05:42] LABS: CALCIUM, SERUM 7.9 MG/DL (8.5-10.4); CHLORIDE, SERUM 100 MMOL/L (96-112); CO2 (CARBON DIOXIDE) 27 MMOL/L (24-34); GFR AFRICAN AMERICAN 28 ML/MIN (>=60); GFR NON AFRICAN AMERICAN 24 ML/MIN (>=60); GLUCOSE, SERUM 89 MG/DL (60-99); POTASSIUM, SERUM 4.7 MMOL/L (3.5-5.3); SODIUM, SERUM 135 MMOL/L (135-148)
[2016-08-17 05:44] LABS: BUN (BLOOD UREA NITROGEN) 15 MG/DL (6-23); CREATININE 2.92 MG/DL (0.70-1.30)
[2016-08-18 06:40] LABS: BASOPHILS 0.2 %; BASOPHILS ABSOLUTE 0.01 10/3/uL (0.0-0.16); EOSINOPHILS 1.4 %; EOSINOPHILS ABSOLUTE 0.06 10/3/uL (0.0-0.53); IMMATURE GRANULOCYTES 0.2 %; IMMATURE GRANULOCYTES ABSOLUTE 0.01 10/3/uL (0.0-0.11); LYMPHOCYTES 35.7 %; LYMPHOCYTES ABSOLUTE 1.55 10/3/uL (0.67-4.30); MEAN CORPUS HGB CONC 31.3 g/dL (32.0-36.0); MEAN CORPUSCULAR HEMOGLOB 27.5 pg (26.0-34.0); MONOCYTES 5.8 %; MONOCYTES ABSOLUTE 0.25 10/3/uL (0.21-1.20); NEUTROPHILS 56.7 %; NEUTROPHILS ABSOLUTE 2.46 10/3/uL (2.02-8.40); PLATELET COUNT 129 10/3/uL (150-400); RBC DISTRIBUTION WIDTH 17.8 % (12.0-16.0); RED CELL COUNT 3.27 10/6/uL (4.7-6.1); WHITE BLOOD CELLS 4.3 10/3/uL (4.5-10.5)
[2016-08-18 06:41] LABS: HEMATOCRIT 28.8 % (40.0-51.0); MANUAL DIFF NO %; MEAN CORPUSCULAR VOLUME 88.1 fL (80-100)
[2016-08-18 06:53] LABS: ALBUMIN 2.4 G/DL (3.5-5.0); BUN (BLOOD UREA NITROGEN) 13 MG/DL (6-23); CALCIUM, SERUM 7.5 MG/DL (8.5-10.4); CHLORIDE, SERUM 106 MMOL/L (96-112); CO2 (CARBON DIOXIDE) 25 MMOL/L (24-34); GLUCOSE, SERUM 94 MG/DL (60-99); POTASSIUM, SERUM 4.4 MMOL/L (3.5-5.3)
[2016-08-18 06:54] LABS: CREATININE 2.41 MG/DL (0.70-1.30); GFR AFRICAN AMERICAN 35 ML/MIN (>=60); GFR NON AFRICAN AMERICAN 30 ML/MIN (>=60); PHOSPHORUS, SERUM 3.7 MG/DL (2.5-4.5); SODIUM, SERUM 142 MMOL/L (135-148)
[2016-08-19 11:03] LABS: BASOPHILS 0.4 %; BASOPHILS ABSOLUTE 0.02 10/3/uL (0.0-0.16); EOSINOPHILS 1.3 %; EOSINOPHILS ABSOLUTE 0.07 10/3/uL (0.0-0.53); HEMATOCRIT 26.1 % (40.0-51.0); HEMOGLOBIN 8.4 g/dL (13.6-17.8); IMMATURE GRANULOCYTES 0.4 %; IMMATURE GRANULOCYTES ABSOLUTE 0.02 10/3/uL (0.0-0.11); LYMPHOCYTES 33.7 %; LYMPHOCYTES ABSOLUTE 1.76 10/3/uL (0.67-4.30); MEAN CORPUS HGB CONC 32.2 g/dL (32.0-36.0); MEAN CORPUSCULAR HEMOGLOB 28.2 pg (26.0-34.0); MEAN CORPUSCULAR VOLUME 87.6 fL (80-100); MEAN PLATELET VOLUME 9.1 fL (9.2-13.0); MONOCYTES 4.4 %; MONOCYTES ABSOLUTE 0.23 10/3/uL (0.21-1.20); NEUTROPHILS 59.8 %; NEUTROPHILS ABSOLUTE 3.13 10/3/uL (2.02-8.40); PLATELET COUNT 127 10/3/uL (150-400); RBC DISTRIBUTION WIDTH 17.7 % (12.0-16.0); RED CELL COUNT 2.98 10/6/uL (4.7-6.1); WHITE BLOOD CELLS 5.2 10/3/uL (4.5-10.5)
[2016-08-19 11:04] LABS: MANUAL DIFF NO %
[2016-08-19 11:14] LABS: ALBUMIN 2.4 G/DL (3.5-5.0); CALCIUM, SERUM 7.8 MG/DL (8.5-10.4); CHLORIDE, SERUM 102 MMOL/L (96-112); CO2 (CARBON DIOXIDE) 23 MMOL/L (24-34); GFR AFRICAN AMERICAN 24 ML/MIN (>=60); GFR NON AFRICAN AMERICAN 21 ML/MIN (>=60); GLUCOSE, SERUM 89 MG/DL (60-99); PHOSPHORUS, SERUM 4.6 MG/DL (2.5-4.5); POTASSIUM, SERUM 4.7 MMOL/L (3.5-5.3)
[2016-08-19 11:15] LABS: BUN (BLOOD UREA NITROGEN) 21 MG/DL (6-23); CREATININE 3.31 MG/DL (0.70-1.30); SODIUM, SERUM 135 MMOL/L (135-148)
[2016-08-20] MEDS ORDERED: PROTONIX20 MG PO (16:00)
[2016-08-20] MEDS ORDERED: REG PO (16:00)
[2016-08-20] MEDS ORDERED: LEVAQUIN5T PO (18:02)
[2016-08-20] MEDS ORDERED: MIRALAX POWDER1 PKT PO (18:03)
[2016-08-20] MEDS ORDERED: PROTONIX PO (18:04)
[2016-11-28] MEDS ORDERED: DSS PO (23:09)
[2016-11-28] MEDS ORDERED: MSCONT60 PO (23:09)
[2016-11-28] MEDS ORDERED: ROXICODONE15 MG PO (23:10)
[2016-11-28] MEDS ORDERED: REM15 PO (23:10)
[2016-11-28] MEDS ORDERED: LEVEMIR (23:10)
[2016-11-28] MEDS ORDERED: PROAIR HFA INH (23:11)
[2016-11-28] MEDS ORDERED: PRILOSEC40 MG PO (23:11)
[2016-11-28] MEDS ORDERED: BREO ELLIPTA INH (23:11)
[2016-11-28] MEDS ORDERED: COREG12 PO (23:11)
[2016-11-28] MEDS ORDERED: SPIRIVA INH (23:11)
[2016-11-28] MEDS ORDERED: REG PO (23:12)
[2016-12-06] MEDS ORDERED: LEVAQUIN5T PO (19:26)
[2016-12-06] MEDS ORDERED: NEPHRO PO (19:32)
[2016-12-22] MEDS ORDERED: ROXICODONE15 MG PO ×2 (15:56)
[2016-12-22] MEDS ORDERED: MSCONT60 PO (15:56)
[2016-12-22] MEDS ORDERED: LEVEMFLXPN SC (15:57)
[2016-12-22] MEDS ORDERED: REM15 PO (15:57)
[2016-12-22] MEDS ORDERED: BREO ELLIPTA 21 EACH INH (15:58)
[2016-12-22] MEDS ORDERED: COREG12 PO (15:58)
[2016-12-22] MEDS ORDERED: PRILOSEC40 MG PO (15:59)
[2016-12-22] MEDS ORDERED: Proair Hfa (15:59)
[2016-12-22] MEDS ORDERED: Spiriva Handihaler (16:00)
[2016-12-22] MEDS ORDERED: REG PO (16:01)
[2016-12-22] MEDS ORDERED: DSS PO (16:01)
[2016-12-22] MEDS ORDERED: DULERA 200 MCG/13 GM INH (16:02)
[2016-12-22] MEDS ORDERED: NEPHRO PO (16:02)
[2016-12-22] MEDS ORDERED: PROTONIX PO (16:02)
[2016-12-22] MEDS ORDERED: [UNRECOGNIZED DRUG - OTHER] NAS (16:04)
[2016-12-28] MEDS ORDERED: METHATAB10 PO (12:40)
[2016-12-28] MEDS ORDERED: PROAMATINE10 MG PO (12:43)
[2016-12-28] MEDS ORDERED: BACTRIM DS1 TAB PO (12:45)
[2016-12-28] MEDS ORDERED: LEVAQUIN5T PO ×2 (12:50→12:51)
[2016-12-28] MEDS ORDERED: BREO ELLIPTA 21 EACH INH (14:37)
[2016-12-28] MEDS ORDERED: DULERA 200 MCG/13 GM INH (14:38)
[2016-12-28] MEDS ORDERED: VENTOLIN HFA INH (14:38)
[2016-12-28] MEDS ORDERED: SPIRIVA INH (14:38)
== END 2016-08-20 18:50 | disposition home health service (06) | DRG 432 ==
LOC: MIC 19:48 → 5SO 08-18 01:02
PROVIDERS: Internal Medicine Nephrology; Nurse Practitioner
PROC: 30253N1 (ICD-10-PCS; principal; 2016-08-15)
PROC: 5A1D60Z (ICD-10-PCS; 2016-08-15)
PROC: 0DJ08ZZ Inspection of Upper Intestinal Tract, Via Natural or Artificial Opening Endoscopic (ICD-10-PCS; 2016-08-19)
DX: K74.60 Unspecified cirrhosis of liver (principal); N18.6 End stage renal disease; K65.2 Spontaneous bacterial peritonitis; E11.22 Type 2 diabetes mellitus with diabetic chronic kidney disease; I12.0 Hypertensive chronic kidney disease with stage 5 chronic kidney disease or end stage renal disease; Z99.81 Dependence on supplemental oxygen; K31.819 Angiodysplasia of stomach and duodenum without bleeding; K29.70 Gastritis, unspecified, without bleeding; F17.210 Nicotine dependence, cigarettes, uncomplicated; J44.9 Chronic obstructive pulmonary disease, unspecified; R53.81 Other malaise; M19.90 Unspecified osteoarthritis, unspecified site; G89.29 Other chronic pain; Z99.2 Dependence on renal dialysis; Z79.4 Long term (current) use of insulin; Z79.899 Other long term (current) drug therapy; Z88.5 Allergy status to narcotic agent; Z88.8 Allergy status to other drugs, medicaments and biological substances
CPT/HCPCS: 36415; 71010; 76700; 80048; 80053; 80069; 80202; 82330; 82550; 82803; 82947; 82962; 83735; 84132; 84295; 84484; 85014; 85018; 85025; 85610; 85730; 86850; 86900; 86901; 86920; 87040; 93005; 94640; A9270-GY; C9113; G0257; J2765; J3370; P9016; P9047

== ENCOUNTER 2016-08-29 03:56 | Inpatient (IN) | payer MEDICARE ==
--- NOTE | ~2016-08-29 | CN ---
Consultation Report [facility] [address] [place]. [address] NAME: JUDIE MARK : 65 STATUS : ADM IN PAT#: [id number] AGE: 50 ADM/REG DATE : 08/29/16 MR#: [id number] REPORT SERV DATE: 08/30/16 DICTATED BY: KYA LARSEN II DATE: 08/30/16 REPORT STATUS : Draft TRANSCRIBED BY: MODL DATE: 08/30/16 CONSULTATION DATE OF CONSULTATION: 08/30/2016 CHIEF COMPLAINT: Back pain. HISTORY OF PRESENT ILLNESS: A 50-year-old gentleman with a known history of L4-5 diskitis and osteomyelitis. The details are somewhat unclear but he apparently had a biopsy at [place] but he reports they did not obtain the specific pathogen. I have been asked to see him regarding management. PAST MEDICAL HISTORY: He has anemia, history of GI bleed, cirrhosis, hepatitis B and C, end- stage renal disease, spinal myelitis, diabetes mellitus, COPD, chronic pain, hypertension, as well as history of heart failure. MEDICATIONS: Please see the MAR. REVIEW OF SYSTEMS: Please see the ER triage sheet dated 08/29/2016. I have reviewed it and agree with it. PHYSICAL EXAMINATION: GENERAL: Examination was a gentleman in no acute distress. He is awake, alert, and oriented. CHEST: His chest is without stridor. CARDIOVASCULAR: Regular rate and rhythm when I palpate the radial pulse. ABDOMEN: Soft. BACK: The back reveals minimal tenderness. NEUROLOGICAL: He has 4+ over 5 in the lower extremities. SKIN: Unremarkable except for tattoos. CT scan shows destruction of a significant amount of L4 and L5. This is consistent with osteomyelitis and diskitis. MEDICAL DECISION MAKING: A 50-year-old gentleman, with osteomyelitis and diskitis. He has multiple medical issues, and I am overall unclear as to whether he will even be cleared for surgery. However surgery should overall stand a high chance of significantly decreasing his pain and increasing his function in a perfect world. Again specifically commenting on his multiple medical issues. I will have the Infectious Disease expert see him and we will see how he progresses medically over the next several days. JJ/MODL Consultation Report [facility] [address] [place] [place]. [address] NAME: JUDIE MARK : 65 STATUS : ADM IN PAT#: [id number] AGE: 50 ADM/REG DATE : 08/29/16 MR#: [id number] REPORT SERV DATE: 08/30/16 DICTATED BY: KYA LARSEN II DATE: 08/30/16 REPORT STATUS : Draft TRANSCRIBED BY: LISSETT DATE: 08/30/16 Kya Larsen II, M.D. / [id number] CC: Blake Fairbanks M.D.
--- NOTE | ~2016-08-29 | DS ---
Discharge Summary [facility] [address] [place]. [address] NAME: JUDIE MARK : 65 STATUS : DIS IN PAT#: [id number] AGE: 50 ADM/REG DATE : 08/29/16 MR#: [id number] REPORT SERV DATE: 09/12/16 DICTATED BY: DATE: REPORT STATUS : Draft TRANSCRIBED BY: MODL DATE: 09/11/16 ADMISSION DATE: 08/29/2016 DISCHARGE DATE: 09/11/2016 DISCHARGE DIAGNOSES: Are as follows: 1. End-stage renal disease; Friday, , Friday, hemodialysis schedule. 2. Acute on chronic anemia. 3. L4-L5 diskitis with ongoing antibiotics, directed by Infectious Disease. 4. Cirrhosis. 5. Hepatitis B and C. 6. Spinal osteomyelitis as above. 7. Diabetes mellitus. 8. Chronic obstructive pulmonary disease. 9. Chronic pain. 10.Hypertension. 11.Chronic tobacco use. 12.Congestive heart failure. 13.Volume overload, shortness of breath. 14.Scrotal edema. CONSULTATIONS DURING HOSPITAL STAY: Dr. Isamar Rivero, Urology; Dr. Edis Marroquin, Palliative Care, [facility]; Dr. Christopher Larsen, Orthopedics; and Dr. Robb Pal, Infectious Disease. DISCHARGE MEDICATIONS: Are as follows: NovoLog insulin via sliding scale, Levaquin 500 mg p.o. q.48 hours dosing to be determined by Infectious Disease, Cozaar 25 mg daily, Reglan 10 mg p.o. daily before meals and at bedtime, MS Contin 60 mg p.o. q.8 hours p.r.n., Protonix 40 mg p.o. daily; MiraLAX one packet p.o. daily, Viread 300 mg p.o. every Friday, Spiriva one capsule via HandiHaler daily, vancomycin dosing at dialysis, Ambien 5 mg p.o. at bedtime, Proventil HFA, Dulera 200/5 two puffs inhaled daily, Nitrol ointment topical 6 hours p.r.n., and Percocet 10/325 p.o. 8 hours p.r.n. CONDITION AT DISCHARGE: Stable. DISPOSITION: The patient will be discharged home with slated followup with Dr. Claudia Irby for evaluation and management of chronic pain. He tentatively will have an appointment with Dr. Edis Marroquin regarding Palliative Care/Pain Management if unable to be evaluated by Dr. Irby's office. He will maintain his usual hemodialysis schedule. HOSPITAL COURSE: This is a 50-year-old chronically ill male patient, who was admitted once again on 08/29/2016 with a primary complaint of shortness of breath, volume overload, edema, scrotal swelling, and chronic pain. He was admitted in favor of other supportive care and workup. He has chronically been admitted of late with known problems as listed above as well as recently diagnosed L4-L5 diskitis. He is chronically maintained in the outpatient setting on a p.o. antibiotic regimen and was evaluated here during his inpatient stay and again by Infectious Disease. He was seen by Dr. Isamar Rivero on Discharge Summary [address] [place]. [address] NAME: JUDIE MARK : 65 STATUS : DIS IN PAT#: [id number] AGE: 50 ADM/REG DATE : 08/29/16 MR#: [id number] REPORT SERV DATE: 09/12/16 DICTATED BY: DATE: REPORT STATUS : Draft TRANSCRIBED BY: MODL DATE: 09/11/16 08/30/2016 at the request of Dr. Wilfred Bustillo for scrotal swelling. Dr. Rivero felt that as he was able to stabilize from a volume standpoint, his scrotal edema would improve and did not recommend further treatment from a urologic standpoint. He was also seen by Infectious Disease for continued antibiotics recommendations and currently remains on vancomycin post hemodialysis with recommendations on 09/09/2016 for continued IV vancomycin dosing x9 weeks and an oral Levaquin is also noted, however, duration is not defined. He was seen in consultation by Dr. Christopher Larsen for consideration for surgical intervention of L4- L5 diskitis. However, opted after explanation of risks versus reward with surgical intervention for non-surgical clinical course. The patient rather, then requested evaluation by Palliative Care for consideration of discharge planning and ongoing management of his pain medications and long-term prognosis. Dr. Marroquin saw him in evaluation and suggested that the patient might be evaluated via hospice. He was evaluated yesterday by [facility], which advised the patient that his current medical status, if he were accepted to their program, would require cessation of hemodialysis. He does carry a cirrhosis diagnosis and the L4-L5 diskitis diagnosis along with other multiple comorbidities concomitantly. However, at this point, his cirrhosis does not qualify him for hospice consideration. Therefore, he would be required to cease dialysis treatment, which he is not prepared to do at this point. The patient will be dismissed today to home and attend his usual hemodialysis and usual clinic tomorrow. I am agreeable as his discharging provider to provide a bridge of pain medication at the direction of Dr. Marroquin's dosing to bridge him to Dr. Irby's Service. The patient is advised this afternoon that he should complete all antibiotics as prescribed by Infectious Disease, which will be further defined today prior to dismissal including a nine-week course of vancomycin with further clarification on p.o. Levaquin with removal of Septra during this hospital stay. He is also advised that after the of this month he will not be provided chronic pain management through our service. This will be accomplished through Dr. Irby's Service after evaluation on the . Dr. Marroquin has also scheduled a tentative appointment with him at around that timeframe so if the patient is not seen by Dr. Irby's Service that he may provide assistance in pain management. The patient is discharged home in stable condition with medications and directions as listed above. The nursing staff will cover all of these instructions, medications prior to dismissal, and he will return to hemodialysis tomorrow. Otherwise, the patient remains under the chronic medical supervision of his Dialysis Clinic, and we will continue to do so post today. /LISSETT Sanchez Cardenas NP / [id number] CC: Blake Fairbanks M.D.
--- NOTE | ~2016-08-29 | CN ---
Consultation Report [facility] [address] [place]. [address] NAME: JUDIE MARK : 65 STATUS : ADM Nilsa PAT#: [id number] AGE: 50 ADM/REG DATE : 08/29/16 MR#: [id number] REPORT SERV DATE: 08/30/16 DICTATED BY: ISAMAR RIVERO DATE: 08/29/16 REPORT STATUS : Draft TRANSCRIBED BY: MODSy DATE: 08/29/16 UROLOGY CONSULT DATE OF CONSULTATION: This consult is from Dr. Bustillo regarding scrotal swelling. CHIEF COMPLAINT: "My scrotum is swollen." HISTORY: This is a 50-year-old gentleman with an unfortunate medical history. This includes end-stage renal disease with hemodialysis on Tuesdays, , and Saturdays; cirrhosis with ascites; pulmonary hypertension; COPD; active tobacco abuse; spinal osteomyelitis; and a recent upper GI bleed, who presented with shortness of breath, an increase in his back pain, and scrotal edema for the past two to three days. He was noted to have anasarca, ascites, pleural effusions, and volume overload. His hemoglobin was 6.[address] scan on admission earlier today showed extensive body anasarca present, ascites filling the abdominal portions of the peritoneal cavity and the pelvis, and also showed destructive enlargement of the anterior aspect of the L4-L5 disk space suggesting pyogenic diskitis. Splenomegaly and varices were present. He had a testicular ultrasound also today showing bilateral normal testes with a small right hydrocele and extensive edema of the scrotal skin. His white blood cell count is 3.9. After he received blood on hemodialysis, his hemoglobin was 6.8. He had 4 L of fluid off on dialysis today and states that his swelling is somewhat better. He was just admitted here at [facility] on 08/16/2016 for a GI bleed and volume overload. PAST MEDICAL HISTORY: 1. Hepatitis B and C, cirrhosis with ascites, end-stage renal disease with hemodialysis, L4-L5 spinal osteomyelitis in 07/2016. He will be completing a six-week course of vancomycin on 08/29/2016. 2. GI bleed on 08/16/2016, treated by Dr. Mayfield with an EGD and cauterization. 3. COPD. 4. Pulmonary hypertension. 5. Tobacco abuse. 6. Hypertension. 7. Diabetes. 8. Gout. 9. Skin cancers. 10.Chronic back pain in the setting of spinal osteomyelitis. 11.History of urinary retention. 12.The patient has chronic pain and is chronically taking OxyContin and Percocet. ALLERGIES: HYDROCODONE, TRAMADOL, GABAPENTIN, STADOL, REQUIP, AND LYRICA. HOME MEDICATIONS: Albuterol, carvedilol, Breo, Levemir, Humalog, Levaquin, losartan, Reglan, Dulera, MS Contin 30 mg every eight hours, Percocet, Protonix, MiraLAX, Requip, Viread, and Consultation Report [address] [place]. [address] NAME: JUDIE MARK : 65 STATUS : ADM Nilsa PAT#: [id number] AGE: 50 ADM/REG DATE : 08/29/16 MR#: [id number] REPORT SERV DATE: 08/30/16 DICTATED BY: ISAMAR RIVERO DATE: 08/29/16 REPORT STATUS : Draft TRANSCRIBED BY: LISSETT DATE: 08/29/16 Ajay. SOCIAL HISTORY: He lives with his girlfriend. Denies any alcohol use. He does smoke cigarettes. REVIEW OF SYSTEMS: GENERAL: He denies fever or chills. NEUROLOGIC: Denies symptoms. LUNGS: As above. HEART: As above. GI: As above. : As above. MUSCULOSKELETAL: As above. PHYSICAL EXAMINATION: VITAL SIGNS: He was afebrile. Vital signs were stable. He had 900 mL in and 4 L off in dialysis. GENERAL: He was frail appearing and in mild distress. NEUROLOGIC: Alert and oriented x3. PSYCHIATRIC: Appropriate. HEENT: Facial features symmetric. Eyes, sclerae anicteric. NECK: Supple. LUNGS: Decreased inspirations bilaterally. HEART: Regular rate and rhythm. ABDOMEN: Mildly distended and edematous with pitting edema, it was nontender. : His penis and scrotum were edematous with pitting edema and was nontender. There were no signs and symptoms of infection. SKIN: Intact. The rugae were preserved. EXTREMITIES: Showed 3+ pitting edema bilaterally. LABORATORY STUDIES: White count of 3.9 with no left shift; platelets of 97,000; hemoglobin of 6.8; hematocrit of 19.9; INR of 1.2; PT of 15.2; PTT of 46.2; creatinine on admission was 3.72. CT scan and scrotal ultrasound as stated above. IMPRESSION: [place] scrotal edema due to volume overload and anasarca. PLAN: This will resolve as the rest of his volume issues are addressed. No urologic intervention is possible. He does state it is somewhat better after the 4 L were removed and hemodialysis today. KH/MODL Consultation Report [place] [address] [facility] [address] NAME: JUDIE MARK : [birth year] STATUS : ADM Nilsa PAT#: [id number] AGE: 50 ADM/REG DATE : 08/29/16 MR#: [id number] REPORT SERV DATE: 08/30/16 DICTATED BY: ISAMAR RIVERO DATE: 08/29/16 REPORT STATUS : Draft TRANSCRIBED BY: LISSETT DATE: 08/29/16 Isamar Rivero M.D. / [id number] CC: Blake Fairbanks M.D.
--- NOTE | ~2016-08-29 | HP ---
History And Physical [place] [id number] [facility] [place]. [address] NAME: JUDIE MARK : 65 STATUS : ADM Nilsa PAT#: [id number] AGE: 50 ADM/REG DATE : 08/29/16 MR#: [id number] REPORT SERV DATE: 08/29/16 DICTATED BY: BLAKE FAIRBANKS DATE: 08/29/16 REPORT STATUS : Draft TRANSCRIBED BY: MODSy DATE: 08/29/16 DATE OF ADMISSION: 08/29/2016 CHIEF COMPLAINT: Shortness of breath, scrotal edema, decreasing hemoglobin. HISTORY OF PRESENT ILLNESS: The patient is a 50-year-old, white male with significant past medical history of multiple medical problems who presents due to complaints of increasing scrotal edema, shortness of breath, and chronic back pain. The patient does have a history of end-stage renal disease, dialyzing Tuesdays, , and Saturdays. He also has a history of cirrhosis with ascites. In addition, he has pulmonary hypertension, COPD, and active tobacco abuse. The patient notices he has also recently hospitalized for spinal osteomyelitis and upper GI bleed. He noticed his scrotal edema in the past two to three days. He is noted to have anasarca, ascites, pleural effusions, and volume overload in the setting of cirrhosis, end-stage renal disease. The patient states that scrotal edema had occurred within the past three days. The patient complains of increasing shortness of breath over the past three to four days. He is noted to have a history of COPD, pulmonary hypertension, pleural effusions in the setting of volume overload. He has active tobacco abuse, on multiple puffers. Chest x-ray shows pulmonary edema. He denies any chest pain, chest pressure. His hemoglobin is noted to be 6.6. The patient on initial workup was noted to have a hemoglobin of 6.6. When he was in the hospital on 08/16/2016, he had an EGD that showed a duodenal AVM, was nonbleeding. He also had gastritis. EGD was completed by Dr. Mayfield. The patient denies any overt symptoms of bleeding such as hematemesis, black stools or bright red blood per rectum. The patient has a history of hepatitis B and C. He is on Viread. The patient was diagnosed with spinal osteomyelitis in 07/2016. He was placed on a 6-week course of vancomycin with last dose scheduled for today on 08/29/2016. This was for Enterobacter cloacae which was noted to be in his blood cultures on 07/06. He was also placed on Levaquin 500 mg every other day with last dose on 09/01/2016 for Stenotrophomonas on blood cultures 07/06. He had a biopsy of his tissue at L4-L5 which showed no growth, bacteria, TB, or fungus. The patient was not deemed a surgical candidate by Dr. Austin or Dr. Vizcarra at that time. The patient has chronic pain and is on OxyContin and Percocet. PAST MEDICAL HISTORY/PAST SURGICAL HISTORY: 1. End-stage renal disease via right IJ PermCath placed by Dr. Beck in 07/2014. 2. L4-L5 spinal osteomyelitis in 07/2016 with blood cultures on 07/06 revealing Enterobacter cloacae and Stenotrophomonas. Biopsy on 07/09 of L4-L5 tissue was negative. The patient will be completing his 6 week course of vancomycin on 08/29/2016. He will be completing a 6 week course of Levaquin 500 mg p.o. every other day. GI bleed, 08/16/2016 with EGD completed by Dr. Mayfield. Duodenal AVM History And Physical [address] [place]. [address] NAME: JUDIE MARK : 65 STATUS : ADM Nilsa PAT#: [id number] AGE: 50 ADM/REG DATE : 08/29/16 MR#: [id number] REPORT SERV DATE: 08/29/16 DICTATED BY: BLAKE FAIRBANKS DATE: 08/29/16 REPORT STATUS : Draft TRANSCRIBED BY: LISSETT DATE: 08/29/16 cauterized. Gastritis noted. 3. COPD, pulmonary hypertension, tobacco abuse. 4. Hypertension. 5. Diabetes. 6. Gout. 7. History of urinary retention. 8. Skin cancers. 9. Chronic pain in the setting of spinal osteomyelitis. SOCIAL HISTORY: Positive tobacco. Lives with girlfriend. No alcohol. FAMILY MEDICAL HISTORY: No known kidney disease. ALLERGIES: TO MEDICATIONS INCLUDE HYDROCODONE, TRAMADOL, GABAPENTIN, STADOL, REQUIP, LYRICA. HOME MEDICATIONS: 1. Albuterol puffer. 2. Carvedilol 12.5 mg p.o. b.i.d. 3. Breo. 4. Levemir. 5. Humalog. 6. Levaquin. 7. Losartan 25 mg daily. 8. Reglan 10 mg p.o. q.i.d. 9. Dulera. 10.MS Contin 30 mg p.o. q.8 hours. 11.Percocet 325. 12.Protonix. 13.MiraLax. 14.Requip. 15.Viread 300 mg q.7 days q.Fridays. 16.Spiriva. COMPLETE REVIEW OF SYSTEMS: Done, negative otherwise stated in HPI. PHYSICAL EXAMINATION: VITAL SIGNS: Temperature is 97.1, pulse is 73, blood pressure is 99/68, 4 L nasal cannula oxygen, O2 sats 99%. GENERAL: He is a thin, chronically ill-appearing white male, no apparent distress. SKIN: No petechiae or purpura. NEURO: He is alert and oriented x3. Appropriate mood and affect. He has 2/5 lower extremity strength. 5/5 upper extremity strength. No asterixis. HEENT: Moist mucous membranes. No ulcers. Normocephalic. No jaundice. SKIN: No petechiae or purpura. NECK: No JVD. Trachea midline. No lymphadenopathy. CARDIOVASCULAR: Regular rate and rhythm. No gallops, rubs or murmurs. RESPIRATORY: Decreased breath sounds bilaterally without increased respiratory rate. History And Physical [address] [address] NAME: JUDIE MARK : 65 STATUS : ADM Nilsa PAT#: [id number] AGE: 50 ADM/REG DATE : 08/29/16 MR#: [id number] REPORT SERV DATE: 08/29/16 DICTATED BY: BLAKE FAIRBANKS DATE: 08/29/16 REPORT STATUS : Draft TRANSCRIBED BY: LISSETT DATE: 08/29/16 ABDOMEN: Soft, nontender, nondistended. Positive bowel sounds. : Scrotal edema with mild erythema, tender to touch. EXTREMITIES: +3 pitting edema. LABS: Sodium is 133, potassium is 4.4, chloride is 99, CO2 is 25, BUN is 27, creatinine is 3.27, albumin is 19, calcium is 7.8, phosphorus is 4.4. Hemoglobin is 6.6, platelets are 97. INR is 1.2. Procalcitonin is 8.69. White blood cell count is 3.9. ASSESSMENT: 1. Anemia secondary to anemia of chronic kidney disease in the setting of also acute blood loss anemia with past medical history of gastritis, duodenal AVM, cirrhosis, and end- stage renal disease. 2. Shortness of breath secondary to volume overload, anasarca with known past medical history of chronic obstructive pulmonary disease and tobacco abuse. 3. Scrotal edema in the setting of ascites, cirrhosis. 4. Cirrhosis with ascites. 5. Hepatitis B and C. 6. Spinal osteomyelitis. 7. Diabetes, on insulin. 8. Debilitated. 9. Chronic pain secondary to L4-L5 osteomyelitis. 10.End-stage renal disease. 11.Chronic hypertension with history of cirrhosis. PLAN: 1. Transfuse 2 units of packed red blood cells with serial H and H's. Protonix. Re- consult Dr. Mayfield to see if repeat EGD needs to be completed versus watching and monitoring his hemoglobin. 2. Hemodialysis. 3. Fluid restrict and low-sodium diet. 4. Scrotal elevation. 5. Testicular ultrasound to rule out torsion. 6. Urology consult. 7. Viread with history of hepatitis, q.7 days. 8. Antibiotics for spinal osteomyelitis. 9. We will re-evaluate need for infectious disease consult. 10.Consult Dr. Austin or associate to provide recommendations for his activity level, need for further imaging, need for further workup L4-L5 discitis and back brace. The patient was not a surgical candidate on his previous admission by two orthopedic surgeons on previous presentation. We will ask them to see him for these other issues. 11.Home and p.o. medications. 12.He declined hospice and palliative care on his last hospitalization. He is a full code. 13.Disposition. To be re-evaluated. History And Physical [address] [address] NAME: JUDIE MARK : 65 STATUS : ADM Nilsa PAT#: [id number] AGE: 50 ADM/REG DATE : 08/29/16 MR#: [id number] REPORT SERV DATE: 08/29/16 DICTATED BY: BLAKE FAIRBANKS DATE: 08/29/16 REPORT STATUS : Draft TRANSCRIBED BY: MODL DATE: 08/29/16 BOB/BERTAL Blake Fairbanks M.D. / [id number] CC: Wilfred Bustillo M.D.
[~2016-08-29 03:56] MED LIST changes: +COZ25 PO; +LEVAQUIN5T PO; +MIRALAX POWDER1 PKT PO; +PROAIRRESP INH; +PROTONIX PO; +PROTONIX20 MG PO; +REG PO
[2016-08-29 04:50] LABS: BASOPHILS 0.3 %; BASOPHILS ABSOLUTE 0.01 10/3/uL (0.0-0.16); EOSINOPHILS ABSOLUTE 0.04 10/3/uL (0.0-0.53); ER CBC TAT 0 Hrs 11 Mins; IMMATURE GRANULOCYTES 0.3 %; IMMATURE GRANULOCYTES ABSOLUTE 0.01 10/3/uL (0.0-0.11); LYMPHOCYTES 25.3 %; LYMPHOCYTES ABSOLUTE 0.99 10/3/uL (0.67-4.30); MEAN CORPUS HGB CONC 33.2 g/dL (32.0-36.0); MEAN CORPUSCULAR HEMOGLOB 28.1 pg (26.0-34.0); MEAN PLATELET VOLUME 9.5 fL (9.2-13.0); MONOCYTES ABSOLUTE 0.43 10/3/uL (0.21-1.20); NEUTROPHILS 62.1 %; NEUTROPHILS ABSOLUTE 2.44 10/3/uL (2.02-8.40); PLATELET COUNT 97 10/3/uL (150-400); WHITE BLOOD CELLS 3.9 10/3/uL (4.5-10.5)
[2016-08-29 04:52] LABS: HEMATOCRIT 19.9 % (40.0-51.0); HEMOGLOBIN 6.6 g/dL (13.6-17.8); MANUAL DIFF NO %; MEAN CORPUSCULAR VOLUME 84.7 fL (80-100); RED CELL COUNT 2.35 10/6/uL (4.7-6.1)
[2016-08-29 04:58] LABS: INTERNATIONAL NORMAL RATI 1.2 UNITS (-); PARTIAL THROMBO TIME 46.2 SEC (22.5-37.2); PROTIME (NOT ORD) 15.2 SEC (12.0-14.5)
[2016-08-29 05:08] LABS: CALCIUM, SERUM 7.9 MG/DL (8.5-10.4); CHLORIDE, SERUM 99 MMOL/L (96-112); CO2 (CARBON DIOXIDE) 25 MMOL/L (24-34); CREATININE 3.72 MG/DL (0.70-1.30); DIRECT BILIRUBIN 0.2 MG/DL (0.0-0.4); GFR AFRICAN AMERICAN 21 ML/MIN (>=60); GFR NON AFRICAN AMERICAN 18 ML/MIN (>=60); GLUCOSE, SERUM 96 MG/DL (60-99); INDIRECT BILIRUBIN(NOT ORDER) 0.3 MG/DL (0.1-0.9); LACTATE 0.5 MMOL/L (0.3-2.4); POTASSIUM, SERUM 4.4 MMOL/L (3.5-5.3); SGOT(AST) 11 U/L (5-40); SODIUM, SERUM 133 MMOL/L (135-148); TOTAL BILIRUBIN 0.5 MG/DL (0-1.2); TOTAL PROTEIN 6.5 G/DL (6.0-8.5)
[2016-08-29 05:14] LABS: A/G RATIO 0.4 (0.7-1.9); ALBUMIN 1.9 G/DL (3.5-5.0); ALKALINE PHOSPHATASE 112 U/L (45-117); BUN (BLOOD UREA NITROGEN) 27 MG/DL (6-23); GLOBULIN 4.6 G/DL (2.5-4.1); SGPT(ALT) < 6 U/L (5-65)
[2016-08-29 06:39] LABS: PROCALCITONIN 8.69 ng/mL (<0.5)
[2016-08-29 11:43] LABS: HEMATOCRIT 20.9 % (40.0-51.0); HEMOGLOBIN 6.8 g/dL (13.6-17.8)
[2016-08-29 21:39] LABS: HEMOGLOBIN 9.5 g/dL (13.6-17.8)
[2016-08-30 08:23] LABS: BASOPHILS 0.7 %; BASOPHILS ABSOLUTE 0.02 10/3/uL (0.0-0.16); EOSINOPHILS 1.3 %; EOSINOPHILS ABSOLUTE 0.04 10/3/uL (0.0-0.53); HEMATOCRIT 27.6 % (40.0-51.0); HEMOGLOBIN 8.9 g/dL (13.6-17.8); IMMATURE GRANULOCYTES 0.3 %; IMMATURE GRANULOCYTES ABSOLUTE 0.01 10/3/uL (0.0-0.11); LYMPHOCYTES 43.5 %; LYMPHOCYTES ABSOLUTE 1.31 10/3/uL (0.67-4.30); MEAN CORPUS HGB CONC 32.2 g/dL (32.0-36.0); MEAN CORPUSCULAR HEMOGLOB 27.8 pg (26.0-34.0); MEAN CORPUSCULAR VOLUME 86.3 fL (80-100); MEAN PLATELET VOLUME 9.4 fL (9.2-13.0); MONOCYTES ABSOLUTE 0.21 10/3/uL (0.21-1.20); NEUTROPHILS 47.2 %; NEUTROPHILS ABSOLUTE 1.42 10/3/uL (2.02-8.40); PLATELET COUNT 123 10/3/uL (150-400); RBC DISTRIBUTION WIDTH 18.3 % (12.0-16.0)
[2016-08-30 08:24] LABS: MANUAL DIFF NO %
[2016-08-30 10:15] LABS: HEP B SUR AB QUANTITATIVE < 3.10 mIU/mL (>=10.0)
[2016-08-30 11:29] LABS: HEPATITIS C ANTIBODY REACTIVE (NON-REACT)
[2016-08-30 11:30] LABS: HEPATITIS B SURFACE ANTIGEN REACTIVE (NON-REACT)
[2016-08-30 15:44] LABS: CALCIUM, SERUM 8.1 MG/DL (8.5-10.4); CHLORIDE, SERUM 102 MMOL/L (96-112); CO2 (CARBON DIOXIDE) 28 MMOL/L (24-34); CREATININE 3.53 MG/DL (0.70-1.30); GFR AFRICAN AMERICAN 22 ML/MIN (>=60); GFR NON AFRICAN AMERICAN 19 ML/MIN (>=60); GLUCOSE, SERUM 91 MG/DL (60-99); PHOSPHORUS, SERUM 3.7 MG/DL (2.5-4.5); POTASSIUM, SERUM 4.1 MMOL/L (3.5-5.3); SODIUM, SERUM 138 MMOL/L (135-148)
[2016-08-30 15:45] LABS: BUN (BLOOD UREA NITROGEN) 20 MG/DL (6-23)
[2016-08-30 20:21] LABS: HEMOGLOBIN 9.6 g/dL (13.6-17.8)
[2016-08-30 20:24] LABS: HEMATOCRIT 31.1 % (40.0-51.0)
[2016-08-31 06:02] LABS: BASOPHILS 0.3 %; BASOPHILS ABSOLUTE 0.01 10/3/uL (0.0-0.16); EOSINOPHILS 0.9 %; EOSINOPHILS ABSOLUTE 0.03 10/3/uL (0.0-0.53); HEMOGLOBIN 8.8 g/dL (13.6-17.8); IMMATURE GRANULOCYTES 0.3 %; IMMATURE GRANULOCYTES ABSOLUTE 0.01 10/3/uL (0.0-0.11); LYMPHOCYTES 43.2 %; LYMPHOCYTES ABSOLUTE 1.43 10/3/uL (0.67-4.30); MEAN CORPUS HGB CONC 32.4 g/dL (32.0-36.0); MEAN CORPUSCULAR VOLUME 86.6 fL (80-100); MONOCYTES 7.6 %; MONOCYTES ABSOLUTE 0.25 10/3/uL (0.21-1.20); NEUTROPHILS 47.7 %; NEUTROPHILS ABSOLUTE 1.58 10/3/uL (2.02-8.40); PLATELET COUNT 121 10/3/uL (150-400); RBC DISTRIBUTION WIDTH 18.3 % (12.0-16.0); RED CELL COUNT 3.14 10/6/uL (4.7-6.1); WHITE BLOOD CELLS 3.3 10/3/uL (4.5-10.5)
[2016-08-31 06:03] LABS: HEMATOCRIT 27.2 % (40.0-51.0); MANUAL DIFF NO %
[2016-08-31 06:17] LABS: A/G RATIO 0.4 (0.7-1.9); ALBUMIN 1.9 G/DL (3.5-5.0); ALKALINE PHOSPHATASE 95 U/L (45-117); BUN (BLOOD UREA NITROGEN) 13 MG/DL (6-23); CALCIUM, SERUM 7.8 MG/DL (8.5-10.4); CHLORIDE, SERUM 102 MMOL/L (96-112); CO2 (CARBON DIOXIDE) 28 MMOL/L (24-34); GFR AFRICAN AMERICAN 30 ML/MIN (>=60); GFR NON AFRICAN AMERICAN 26 ML/MIN (>=60); GLUCOSE, SERUM 82 MG/DL (60-99); PHOSPHORUS, SERUM 2.7 MG/DL (2.5-4.5); POTASSIUM, SERUM 3.7 MMOL/L (3.5-5.3); SGOT(AST) 13 U/L (5-40); SGPT(ALT) 6 U/L (5-65); SODIUM, SERUM 136 MMOL/L (135-148); TOTAL BILIRUBIN 0.5 MG/DL (0-1.2); TOTAL PROTEIN 6.9 G/DL (6.0-8.5)
[2016-08-31 06:21] LABS: C-REACTIVE PROTEIN 50.4 MG/L (<8.0)
[2016-08-31 18:04] LABS: HEMATOCRIT 30.7 % (40.0-51.0)
[2016-09-01 06:35] LABS: BASOPHILS 0.5 %; BASOPHILS ABSOLUTE 0.02 10/3/uL (0.0-0.16); EOSINOPHILS 1.6 %; EOSINOPHILS ABSOLUTE 0.06 10/3/uL (0.0-0.53); HEMOGLOBIN 8.7 g/dL (13.6-17.8); IMMATURE GRANULOCYTES 0.3 %; IMMATURE GRANULOCYTES ABSOLUTE 0.01 10/3/uL (0.0-0.11); LYMPHOCYTES 46.8 %; LYMPHOCYTES ABSOLUTE 1.75 10/3/uL (0.67-4.30); MEAN CORPUS HGB CONC 31.8 g/dL (32.0-36.0); MEAN CORPUSCULAR VOLUME 88.1 fL (80-100); MEAN PLATELET VOLUME 9.1 fL (9.2-13.0); MONOCYTES 6.1 %; MONOCYTES ABSOLUTE 0.23 10/3/uL (0.21-1.20); NEUTROPHILS 44.7 %; NEUTROPHILS ABSOLUTE 1.67 10/3/uL (2.02-8.40); PLATELET COUNT 131 10/3/uL (150-400); RBC DISTRIBUTION WIDTH 18.1 % (12.0-16.0); RED CELL COUNT 3.11 10/6/uL (4.7-6.1); WHITE BLOOD CELLS 3.7 10/3/uL (4.5-10.5)
[2016-09-01 06:36] LABS: HEMATOCRIT 27.4 % (40.0-51.0); HEMATOCRIT 27.5 % (40.0-51.0); HEMOGLOBIN 8.7 g/dL (13.6-17.8); MANUAL DIFF NO %
[2016-09-01 06:41] LABS: INTERNATIONAL NORMAL RATI 1.2 UNITS (-); PROTIME (NOT ORD) 15.3 SEC (12.0-14.5)
[2016-09-01 06:49] LABS: ALBUMIN 2.1 G/DL (3.5-5.0); BUN (BLOOD UREA NITROGEN) 12 MG/DL (6-23); CALCIUM, SERUM 7.8 MG/DL (8.5-10.4); CHLORIDE, SERUM 103 MMOL/L (96-112); CO2 (CARBON DIOXIDE) 28 MMOL/L (24-34); CREATININE 2.65 MG/DL (0.70-1.30); GFR AFRICAN AMERICAN 31 ML/MIN (>=60); GFR NON AFRICAN AMERICAN 27 ML/MIN (>=60); GLUCOSE, SERUM 79 MG/DL (60-99); POTASSIUM, SERUM 4.2 MMOL/L (3.5-5.3); SODIUM, SERUM 137 MMOL/L (135-148)
[2016-09-01 15:26] LABS: HBV DNA QUANT LOG10 VALUE Not Detected (NOTDET); HBV DNA QUANT RESULT Not Detected (NOTDET)
[2016-09-01 18:27] LABS: HEPATITIS B CORE AB TOTAL Reactive (NR)
[2016-09-02 06:16] LABS: BASOPHILS 0.2 %; BASOPHILS ABSOLUTE 0.01 10/3/uL (0.0-0.16); EOSINOPHILS 1.7 %; EOSINOPHILS ABSOLUTE 0.08 10/3/uL (0.0-0.53); HEMATOCRIT 29.6 % (40.0-51.0); HEMOGLOBIN 9.3 g/dL (13.6-17.8); LYMPHOCYTES 37.6 %; LYMPHOCYTES ABSOLUTE 1.78 10/3/uL (0.67-4.30); MANUAL DIFF NO %; MEAN CORPUS HGB CONC 31.4 g/dL (32.0-36.0); MEAN CORPUSCULAR HEMOGLOB 27.8 pg (26.0-34.0); MEAN CORPUSCULAR VOLUME 88.4 fL (80-100); MEAN PLATELET VOLUME 8.8 fL (9.2-13.0); MONOCYTES 4.2 %; NEUTROPHILS 56.3 %; NEUTROPHILS ABSOLUTE 2.66 10/3/uL (2.02-8.40); PLATELET COUNT 142 10/3/uL (150-400); RBC DISTRIBUTION WIDTH 18.2 % (12.0-16.0); RED CELL COUNT 3.35 10/6/uL (4.7-6.1); WHITE BLOOD CELLS 4.7 10/3/uL (4.5-10.5)
[2016-09-02 06:24] LABS: ALBUMIN 2.4 G/DL (3.5-5.0); CALCIUM, SERUM 8.3 MG/DL (8.5-10.4); CHLORIDE, SERUM 104 MMOL/L (96-112); CO2 (CARBON DIOXIDE) 25 MMOL/L (24-34); GLUCOSE, SERUM 86 MG/DL (60-99); POTASSIUM, SERUM 4.5 MMOL/L (3.5-5.3); SODIUM, SERUM 138 MMOL/L (135-148)
[2016-09-02 06:25] LABS: BUN (BLOOD UREA NITROGEN) 19 MG/DL (6-23); CREATININE 3.59 MG/DL (0.70-1.30); GFR AFRICAN AMERICAN 22 ML/MIN (>=60); GFR NON AFRICAN AMERICAN 19 ML/MIN (>=60); PHOSPHORUS, SERUM 4.3 MG/DL (2.5-4.5)
[2016-09-02 12:15] LABS: HEPATITIS B CORE AB IGM NON-REACTIVE (NON-REAC)
[2016-09-02 12:17] LABS: HEP A ANTIBODY IGM NON-REACTIVE (NON-REACT)
[2016-09-02 13:05] LABS: HEPATITIS B SURFACE ANTIGEN REACTIVE (NON-REACT)
[2016-09-02 13:19] LABS: HEPATITIS C ANTIBODY REACTIVE (NON-REACT)
[2016-09-03 06:12] LABS: BASOPHILS 0.7 %; BASOPHILS ABSOLUTE 0.02 10/3/uL (0.0-0.16); EOSINOPHILS ABSOLUTE 0.06 10/3/uL (0.0-0.53); HEMATOCRIT 30.2 % (40.0-51.0); HEMOGLOBIN 9.5 g/dL (13.6-17.8); IMMATURE GRANULOCYTES 0.3 %; IMMATURE GRANULOCYTES ABSOLUTE 0.01 10/3/uL (0.0-0.11); LYMPHOCYTES 19.7 %; LYMPHOCYTES ABSOLUTE 0.59 10/3/uL (0.67-4.30); MEAN CORPUS HGB CONC 31.5 g/dL (32.0-36.0); MEAN CORPUSCULAR VOLUME 89.1 fL (80-100); MEAN PLATELET VOLUME 9.3 fL (9.2-13.0); MONOCYTES ABSOLUTE 0.06 10/3/uL (0.21-1.20); NEUTROPHILS 75.3 %; NEUTROPHILS ABSOLUTE 2.25 10/3/uL (2.02-8.40); RBC DISTRIBUTION WIDTH 18.3 % (12.0-16.0); RED CELL COUNT 3.39 10/6/uL (4.7-6.1)
[2016-09-03 06:13] LABS: MANUAL DIFF NO %; PLATELET COUNT 56 10/3/uL (150-400)
[2016-09-03 06:23] LABS: ALBUMIN 2.3 G/DL (3.5-5.0); BUN (BLOOD UREA NITROGEN) 16 MG/DL (6-23); CALCIUM, SERUM 8.2 MG/DL (8.5-10.4); CHLORIDE, SERUM 103 MMOL/L (96-112); CO2 (CARBON DIOXIDE) 29 MMOL/L (24-34); CREATININE 3.16 MG/DL (0.70-1.30); GFR AFRICAN AMERICAN 25 ML/MIN (>=60); GFR NON AFRICAN AMERICAN 22 ML/MIN (>=60); GLUCOSE, SERUM 95 MG/DL (60-99); PHOSPHORUS, SERUM 3.9 MG/DL (2.5-4.5); POTASSIUM, SERUM 4.6 MMOL/L (3.5-5.3); SODIUM, SERUM 137 MMOL/L (135-148)
[2016-09-03 07:11] LABS: ANISOCYTOSIS 1+ (5-10/OIF) (0-5/OIF); PLATELET ESTIMATE DEC (ADEQUATE)
[2016-09-03 22:23] LABS: HBE AB Reactive (NR)
[2016-09-04 06:34] LABS: HEMOGLOBIN 8.5 g/dL (13.6-17.8); MEAN CORPUSCULAR HEMOGLOB 27.9 pg (26.0-34.0); MEAN CORPUSCULAR VOLUME 87.2 fL (80-100); MEAN PLATELET VOLUME 10.2 fL (9.2-13.0); RBC DISTRIBUTION WIDTH 18.2 % (12.0-16.0); RED CELL COUNT 3.05 10/6/uL (4.7-6.1)
[2016-09-04 06:35] LABS: HEMATOCRIT 26.6 % (40.0-51.0); MANUAL DIFF YES %; PLATELET COUNT 88 10/3/uL (150-400); WHITE BLOOD CELLS 4.3 10/3/uL (4.5-10.5)
[2016-09-04 06:50] LABS: CALCIUM, SERUM 8.1 MG/DL (8.5-10.4); CHLORIDE, SERUM 108 MMOL/L (96-112); GFR AFRICAN AMERICAN 18 ML/MIN (>=60); GFR NON AFRICAN AMERICAN 15 ML/MIN (>=60); GLUCOSE, SERUM 100 MG/DL (60-99); PHOSPHORUS, SERUM 4.7 MG/DL (2.5-4.5); POTASSIUM, SERUM 5.3 MMOL/L (3.5-5.3); SODIUM, SERUM 140 MMOL/L (135-148)
[2016-09-04 06:51] LABS: ANISOCYTOSIS 1+ (5-10/OIF) (0-5/OIF); BAND NEUTROPHILS 4 %; LYMPHOCYTES 38 %; LYMPHOCYTES ABSOLUTE (CALC) 1.63 10/3/uL (0.67-4.30); MONOCYTES 2 %; MONOCYTES ABSOLUTE (CALC) 0.09 10/3/uL (0.21-1.20); NEUTROPHILS ABSOLUTE (CALC) 2.58 10/3/uL (2.02-8.40); PLATELET ESTIMATE DEC (ADEQUATE); SEGMENTED NEUTROPHIL (0) 56 %; TOTAL NUCLEATED CELLS 50
[2016-09-04 06:52] LABS: POLYCHROMASIA 1+ (2-5/OIF) (0-1/OIF)
[2016-09-04 06:54] LABS: BUN (BLOOD UREA NITROGEN) 27 MG/DL (6-23); CO2 (CARBON DIOXIDE) 23 MMOL/L (24-34); CREATININE 4.27 MG/DL (0.70-1.30)
[2016-09-04 17:11] LABS: HEV IGG NOT DETECTED (NOTDET); HEV IGM DETECTED (NOTDET)
[2016-09-05 00:15] LABS: HCV RNA VIRAL LOAD 6.8 (NOTDET)
[2016-09-05 07:39] LABS: BASOPHILS 0.3 %; BASOPHILS ABSOLUTE 0.01 10/3/uL (0.0-0.16); EOSINOPHILS 0.8 %; EOSINOPHILS ABSOLUTE 0.03 10/3/uL (0.0-0.53); HEMOGLOBIN 7.4 g/dL (13.6-17.8); IMMATURE GRANULOCYTES 0.3 %; IMMATURE GRANULOCYTES ABSOLUTE 0.01 10/3/uL (0.0-0.11); LYMPHOCYTES 37.1 %; LYMPHOCYTES ABSOLUTE 1.42 10/3/uL (0.67-4.30); MEAN CORPUS HGB CONC 31.5 g/dL (32.0-36.0); MEAN CORPUSCULAR HEMOGLOB 28.6 pg (26.0-34.0); MEAN PLATELET VOLUME 9.1 fL (9.2-13.0); MONOCYTES 8.6 %; MONOCYTES ABSOLUTE 0.33 10/3/uL (0.21-1.20); NEUTROPHILS 52.9 %; NEUTROPHILS ABSOLUTE 2.03 10/3/uL (2.02-8.40); PLATELET COUNT 88 10/3/uL (150-400); RBC DISTRIBUTION WIDTH 18.5 % (12.0-16.0); RED CELL COUNT 2.59 10/6/uL (4.7-6.1); WHITE BLOOD CELLS 3.8 10/3/uL (4.5-10.5)
[2016-09-05 07:40] LABS: HEMATOCRIT 23.5 % (40.0-51.0); MANUAL DIFF NO %; MEAN CORPUSCULAR VOLUME 90.7 fL (80-100)
[2016-09-05 07:58] LABS: ALBUMIN 2.1 G/DL (3.5-5.0); BUN (BLOOD UREA NITROGEN) 24 MG/DL (6-23); CALCIUM, SERUM 8.2 MG/DL (8.5-10.4); CHLORIDE, SERUM 105 MMOL/L (96-112); CO2 (CARBON DIOXIDE) 23 MMOL/L (24-34); CREATININE 3.87 MG/DL (0.70-1.30); GFR AFRICAN AMERICAN 20 ML/MIN (>=60); GFR NON AFRICAN AMERICAN 17 ML/MIN (>=60); GLUCOSE, SERUM 87 MG/DL (60-99); PHOSPHORUS, SERUM 3.7 MG/DL (2.5-4.5); POTASSIUM, SERUM 4.4 MMOL/L (3.5-5.3); SODIUM, SERUM 136 MMOL/L (135-148)
[2016-09-06 06:11] LABS: BASOPHILS 0.5 %; BASOPHILS ABSOLUTE 0.02 10/3/uL (0.0-0.16); EOSINOPHILS 1.9 %; EOSINOPHILS ABSOLUTE 0.07 10/3/uL (0.0-0.53); HEMATOCRIT 23.6 % (40.0-51.0); HEMOGLOBIN 7.7 g/dL (13.6-17.8); IMMATURE GRANULOCYTES 0.3 %; IMMATURE GRANULOCYTES ABSOLUTE 0.01 10/3/uL (0.0-0.11); LYMPHOCYTES 41.9 %; LYMPHOCYTES ABSOLUTE 1.56 10/3/uL (0.67-4.30); MANUAL DIFF NO %; MEAN CORPUS HGB CONC 32.6 g/dL (32.0-36.0); MEAN CORPUSCULAR HEMOGLOB 28.3 pg (26.0-34.0); MEAN CORPUSCULAR VOLUME 86.8 fL (80-100); MONOCYTES 8.1 %; NEUTROPHILS 47.3 %; NEUTROPHILS ABSOLUTE 1.76 10/3/uL (2.02-8.40); PLATELET COUNT 101 10/3/uL (150-400); RBC DISTRIBUTION WIDTH 18.3 % (12.0-16.0); RED CELL COUNT 2.72 10/6/uL (4.7-6.1); WHITE BLOOD CELLS 3.7 10/3/uL (4.5-10.5)
[2016-09-06 06:29] LABS: ALBUMIN 2.3 G/DL (3.5-5.0); CALCIUM, SERUM 7.9 MG/DL (8.5-10.4); CHLORIDE, SERUM 104 MMOL/L (96-112); CO2 (CARBON DIOXIDE) 24 MMOL/L (24-34); PHOSPHORUS, SERUM 4.3 MG/DL (2.5-4.5); POTASSIUM, SERUM 4.7 MMOL/L (3.5-5.3); SODIUM, SERUM 137 MMOL/L (135-148)
[2016-09-06 06:32] LABS: BUN (BLOOD UREA NITROGEN) 34 MG/DL (6-23); CREATININE 4.96 MG/DL (0.70-1.30); GFR AFRICAN AMERICAN 15 ML/MIN (>=60); GFR NON AFRICAN AMERICAN 13 ML/MIN (>=60); GLUCOSE, SERUM 106 MG/DL (60-99)
[2016-09-07 10:26] LABS: BASOPHILS 0.3 %; BASOPHILS ABSOLUTE 0.01 10/3/uL (0.0-0.16); EOSINOPHILS 1.4 %; EOSINOPHILS ABSOLUTE 0.04 10/3/uL (0.0-0.53); HEMATOCRIT 22.4 % (40.0-51.0); HEMOGLOBIN 7.1 g/dL (13.6-17.8); IMMATURE GRANULOCYTES 0.3 %; IMMATURE GRANULOCYTES ABSOLUTE 0.01 10/3/uL (0.0-0.11); LYMPHOCYTES ABSOLUTE 1.18 10/3/uL (0.67-4.30); MEAN CORPUS HGB CONC 31.7 g/dL (32.0-36.0); MEAN CORPUSCULAR HEMOGLOB 27.8 pg (26.0-34.0); MEAN CORPUSCULAR VOLUME 87.8 fL (80-100); MEAN PLATELET VOLUME 9.2 fL (9.2-13.0); MONOCYTES 7.1 %; MONOCYTES ABSOLUTE 0.21 10/3/uL (0.21-1.20); NEUTROPHILS 50.9 %; PLATELET COUNT 107 10/3/uL (150-400); RBC DISTRIBUTION WIDTH 18.1 % (12.0-16.0); RED CELL COUNT 2.55 10/6/uL (4.7-6.1)
[2016-09-07 10:29] LABS: MANUAL DIFF NO %
[2016-09-07 10:37] LABS: ALBUMIN 2.4 G/DL (3.5-5.0); CALCIUM, SERUM 7.9 MG/DL (8.5-10.4); CHLORIDE, SERUM 105 MMOL/L (96-112); CO2 (CARBON DIOXIDE) 28 MMOL/L (24-34); GLUCOSE, SERUM 111 MG/DL (60-99); POTASSIUM, SERUM 4.6 MMOL/L (3.5-5.3); SODIUM, SERUM 138 MMOL/L (135-148)
[2016-09-07 10:39] LABS: BUN (BLOOD UREA NITROGEN) 28 MG/DL (6-23); CREATININE 3.95 MG/DL (0.70-1.30); GFR AFRICAN AMERICAN 19 ML/MIN (>=60); GFR NON AFRICAN AMERICAN 17 ML/MIN (>=60); PHOSPHORUS, SERUM 3.3 MG/DL (2.5-4.5)
[2016-09-08 06:34] LABS: BASOPHILS 0.3 %; BASOPHILS ABSOLUTE 0.01 10/3/uL (0.0-0.16); EOSINOPHILS 1.6 %; EOSINOPHILS ABSOLUTE 0.05 10/3/uL (0.0-0.53); HEMATOCRIT 23.6 % (40.0-51.0); HEMOGLOBIN 7.4 g/dL (13.6-17.8); LYMPHOCYTES 42.4 %; LYMPHOCYTES ABSOLUTE 1.31 10/3/uL (0.67-4.30); MEAN CORPUS HGB CONC 31.4 g/dL (32.0-36.0); MEAN CORPUSCULAR HEMOGLOB 27.7 pg (26.0-34.0); MEAN CORPUSCULAR VOLUME 88.4 fL (80-100); MEAN PLATELET VOLUME 9.3 fL (9.2-13.0); MONOCYTES 8.7 %; MONOCYTES ABSOLUTE 0.27 10/3/uL (0.21-1.20); NEUTROPHILS ABSOLUTE 1.45 10/3/uL (2.02-8.40); PLATELET COUNT 120 10/3/uL (150-400); RBC DISTRIBUTION WIDTH 17.9 % (12.0-16.0); RED CELL COUNT 2.67 10/6/uL (4.7-6.1); WHITE BLOOD CELLS 3.1 10/3/uL (4.5-10.5)
[2016-09-08 06:37] LABS: MANUAL DIFF NO %
[2016-09-08 06:47] LABS: ALBUMIN 2.4 G/DL (3.5-5.0); BUN (BLOOD UREA NITROGEN) 23 MG/DL (6-23); CALCIUM, SERUM 8.2 MG/DL (8.5-10.4); CHLORIDE, SERUM 106 MMOL/L (96-112); CO2 (CARBON DIOXIDE) 27 MMOL/L (24-34); CREATININE 3.33 MG/DL (0.70-1.30); GFR AFRICAN AMERICAN 24 ML/MIN (>=60); GFR NON AFRICAN AMERICAN 20 ML/MIN (>=60); GLUCOSE, SERUM 91 MG/DL (60-99); PHOSPHORUS, SERUM 2.7 MG/DL (2.5-4.5); POTASSIUM, SERUM 4.7 MMOL/L (3.5-5.3); SODIUM, SERUM 139 MMOL/L (135-148)
[2016-09-09 05:39] LABS: BASOPHILS 0.3 %; BASOPHILS ABSOLUTE 0.01 10/3/uL (0.0-0.16); EOSINOPHILS 1.2 %; EOSINOPHILS ABSOLUTE 0.04 10/3/uL (0.0-0.53); HEMATOCRIT 24.7 % (40.0-51.0); HEMOGLOBIN 7.7 g/dL (13.6-17.8); IMMATURE GRANULOCYTES 0.3 %; IMMATURE GRANULOCYTES ABSOLUTE 0.01 10/3/uL (0.0-0.11); LYMPHOCYTES ABSOLUTE 0.92 10/3/uL (0.67-4.30); MEAN CORPUS HGB CONC 31.2 g/dL (32.0-36.0); MEAN CORPUSCULAR HEMOGLOB 27.5 pg (26.0-34.0); MEAN CORPUSCULAR VOLUME 88.2 fL (80-100); MEAN PLATELET VOLUME 9.4 fL (9.2-13.0); MONOCYTES 6.4 %; MONOCYTES ABSOLUTE 0.21 10/3/uL (0.21-1.20); NEUTROPHILS 63.8 %; PLATELET COUNT 116 10/3/uL (150-400); RBC DISTRIBUTION WIDTH 17.8 % (12.0-16.0); WHITE BLOOD CELLS 3.3 10/3/uL (4.5-10.5)
[2016-09-09 05:43] LABS: MANUAL DIFF NO %
[2016-09-09 05:54] LABS: ALBUMIN 2.5 G/DL (3.5-5.0); BUN (BLOOD UREA NITROGEN) 32 MG/DL (6-23); CALCIUM, SERUM 8.6 MG/DL (8.5-10.4); CHLORIDE, SERUM 104 MMOL/L (96-112); CO2 (CARBON DIOXIDE) 25 MMOL/L (24-34); CREATININE 4.01 MG/DL (0.70-1.30); GFR AFRICAN AMERICAN 19 ML/MIN (>=60); GFR NON AFRICAN AMERICAN 16 ML/MIN (>=60); GLUCOSE, SERUM 94 MG/DL (60-99); PHOSPHORUS, SERUM 3.6 MG/DL (2.5-4.5); POTASSIUM, SERUM 5.9 MMOL/L (3.5-5.3); SODIUM, SERUM 135 MMOL/L (135-148)
[2016-09-09 13:15] LABS: BASOPHILS 0.3 %; BASOPHILS ABSOLUTE 0.01 10/3/uL (0.0-0.16); EOSINOPHILS 1.3 %; EOSINOPHILS ABSOLUTE 0.04 10/3/uL (0.0-0.53); HEMATOCRIT 21.7 % (40.0-51.0); HEMOGLOBIN 7.2 g/dL (13.6-17.8); LYMPHOCYTES 27.7 %; LYMPHOCYTES ABSOLUTE 0.88 10/3/uL (0.67-4.30); MANUAL DIFF NO %; MEAN CORPUS HGB CONC 31.8 g/dL (32.0-36.0); MEAN CORPUSCULAR VOLUME 88.2 fL (80-100); MEAN PLATELET VOLUME 9.9 fL (9.2-13.0); MONOCYTES 10.4 %; MONOCYTES ABSOLUTE 0.33 10/3/uL (0.21-1.20); NEUTROPHILS 60.3 %; NEUTROPHILS ABSOLUTE 1.92 10/3/uL (2.02-8.40); PLATELET COUNT 102 10/3/uL (150-400); RBC DISTRIBUTION WIDTH 17.9 % (12.0-16.0); RED CELL COUNT 2.46 10/6/uL (4.7-6.1); WHITE BLOOD CELLS 3.2 10/3/uL (4.5-10.5)
[2016-09-09 13:26] LABS: ALBUMIN 2.3 G/DL (3.5-5.0); BUN (BLOOD UREA NITROGEN) 34 MG/DL (6-23); CALCIUM, SERUM 8.4 MG/DL (8.5-10.4); CHLORIDE, SERUM 102 MMOL/L (96-112); CO2 (CARBON DIOXIDE) 28 MMOL/L (24-34); GFR AFRICAN AMERICAN 18 ML/MIN (>=60); GFR NON AFRICAN AMERICAN 15 ML/MIN (>=60); PHOSPHORUS, SERUM 4.3 MG/DL (2.5-4.5); POTASSIUM, SERUM 5.7 MMOL/L (3.5-5.3); SODIUM, SERUM 135 MMOL/L (135-148)
[2016-09-09 13:28] LABS: GLUCOSE, SERUM 117 MG/DL (60-99)
[2016-09-10 06:49] LABS: BASOPHILS 0.3 %; BASOPHILS ABSOLUTE 0.01 10/3/uL (0.0-0.16); EOSINOPHILS 1.7 %; EOSINOPHILS ABSOLUTE 0.05 10/3/uL (0.0-0.53); LYMPHOCYTES 45.7 %; LYMPHOCYTES ABSOLUTE 1.34 10/3/uL (0.67-4.30); MEAN CORPUS HGB CONC 31.7 g/dL (32.0-36.0); MEAN CORPUSCULAR HEMOGLOB 28.1 pg (26.0-34.0); MEAN CORPUSCULAR VOLUME 88.7 fL (80-100); MEAN PLATELET VOLUME 8.6 fL (9.2-13.0); MONOCYTES 11.6 %; MONOCYTES ABSOLUTE 0.34 10/3/uL (0.21-1.20); NEUTROPHILS 40.7 %; NEUTROPHILS ABSOLUTE 1.19 10/3/uL (2.02-8.40); PLATELET COUNT 98 10/3/uL (150-400); RED CELL COUNT 2.31 10/6/uL (4.7-6.1); WHITE BLOOD CELLS 2.9 10/3/uL (4.5-10.5)
[2016-09-10 06:51] LABS: ALBUMIN 2.3 G/DL (3.5-5.0); BUN (BLOOD UREA NITROGEN) 24 MG/DL (6-23); CALCIUM, SERUM 8.1 MG/DL (8.5-10.4); CHLORIDE, SERUM 105 MMOL/L (96-112); CO2 (CARBON DIOXIDE) 30 MMOL/L (24-34); CREATININE 3.37 MG/DL (0.70-1.30); GFR AFRICAN AMERICAN 23 ML/MIN (>=60); GFR NON AFRICAN AMERICAN 20 ML/MIN (>=60); GLUCOSE, SERUM 97 MG/DL (60-99); PHOSPHORUS, SERUM 4.1 MG/DL (2.5-4.5); POTASSIUM, SERUM 5.1 MMOL/L (3.5-5.3); SODIUM, SERUM 139 MMOL/L (135-148)
[2016-09-10 06:54] LABS: HEMATOCRIT 20.5 % (40.0-51.0); HEMOGLOBIN 6.5 g/dL (13.6-17.8)
[2016-09-10 06:55] LABS: MANUAL DIFF NO %
[2016-09-11 06:50] LABS: ALBUMIN 2.4 G/DL (3.5-5.0); CALCIUM, SERUM 8.5 MG/DL (8.5-10.4); CHLORIDE, SERUM 104 MMOL/L (96-112); CO2 (CARBON DIOXIDE) 27 MMOL/L (24-34); GLUCOSE, SERUM 94 MG/DL (60-99); POTASSIUM, SERUM 4.6 MMOL/L (3.5-5.3); SODIUM, SERUM 138 MMOL/L (135-148)
[2016-09-11 06:52] LABS: BUN (BLOOD UREA NITROGEN) 20 MG/DL (6-23); CREATININE 2.68 MG/DL (0.70-1.30); GFR AFRICAN AMERICAN 31 ML/MIN (>=60); GFR NON AFRICAN AMERICAN 27 ML/MIN (>=60); PHOSPHORUS, SERUM 3.1 MG/DL (2.5-4.5)
[2016-09-11 06:54] LABS: BASOPHILS 0.3 %; BASOPHILS ABSOLUTE 0.01 10/3/uL (0.0-0.16); LYMPHOCYTES 40.8 %; LYMPHOCYTES ABSOLUTE 1.38 10/3/uL (0.67-4.30); MEAN CORPUS HGB CONC 31.4 g/dL (32.0-36.0); MEAN CORPUSCULAR HEMOGLOB 27.5 pg (26.0-34.0); MEAN CORPUSCULAR VOLUME 87.7 fL (80-100); MEAN PLATELET VOLUME 9.2 fL (9.2-13.0); MONOCYTES 8.6 %; MONOCYTES ABSOLUTE 0.29 10/3/uL (0.21-1.20); NEUTROPHILS 47.3 %; PLATELET COUNT 112 10/3/uL (150-400); RBC DISTRIBUTION WIDTH 17.6 % (12.0-16.0); WHITE BLOOD CELLS 3.4 10/3/uL (4.5-10.5)
[2016-09-11 06:55] LABS: HEMATOCRIT 29.3 % (40.0-51.0); HEMOGLOBIN 9.2 g/dL (13.6-17.8); MANUAL DIFF NO %; RED CELL COUNT 3.34 10/6/uL (4.7-6.1)
[2016-09-11] MEDS ORDERED: NOVOLOG SC (12:14)
[2016-09-11] MEDS ORDERED: AVINZA60 PO (12:23)
[2016-09-11] MEDS ORDERED: VANCO500 IV (12:32)
[2016-09-11] MEDS ORDERED: AMB5 PO (12:36)
[2016-11-28] MEDS ORDERED: MSCONT60 PO (23:09)
[2016-11-28] MEDS ORDERED: DSS PO (23:09)
[2016-11-28] MEDS ORDERED: LEVEMIR (23:10)
[2016-11-28] MEDS ORDERED: ROXICODONE15 MG PO (23:10)
[2016-11-28] MEDS ORDERED: REM15 PO (23:10)
[2016-11-28] MEDS ORDERED: BREO ELLIPTA INH (23:11)
[2016-11-28] MEDS ORDERED: PRILOSEC40 MG PO (23:11)
[2016-11-28] MEDS ORDERED: COREG12 PO (23:11)
[2016-11-28] MEDS ORDERED: PROAIR HFA INH (23:11)
[2016-11-28] MEDS ORDERED: SPIRIVA INH (23:11)
[2016-11-28] MEDS ORDERED: REG PO (23:12)
[2016-12-06] MEDS ORDERED: LEVAQUIN5T PO (19:26)
[2016-12-06] MEDS ORDERED: NEPHRO PO (19:32)
[2016-12-22] MEDS ORDERED: MSCONT60 PO (15:56)
[2016-12-22] MEDS ORDERED: ROXICODONE15 MG PO ×2 (15:56)
[2016-12-22] MEDS ORDERED: LEVEMFLXPN SC (15:57)
[2016-12-22] MEDS ORDERED: REM15 PO (15:57)
[2016-12-22] MEDS ORDERED: BREO ELLIPTA 21 EACH INH (15:58)
[2016-12-22] MEDS ORDERED: COREG12 PO (15:58)
[2016-12-22] MEDS ORDERED: Proair Hfa (15:59)
[2016-12-22] MEDS ORDERED: PRILOSEC40 MG PO (15:59)
[2016-12-22] MEDS ORDERED: Spiriva Handihaler (16:00)
[2016-12-22] MEDS ORDERED: DSS PO (16:01)
[2016-12-22] MEDS ORDERED: REG PO (16:01)
[2016-12-22] MEDS ORDERED: NEPHRO PO (16:02)
[2016-12-22] MEDS ORDERED: PROTONIX PO (16:02)
[2016-12-22] MEDS ORDERED: DULERA 200 MCG/13 GM INH (16:02)
[2016-12-22] MEDS ORDERED: [UNRECOGNIZED DRUG - OTHER] NAS (16:04)
[2016-12-28] MEDS ORDERED: METHATAB10 PO (12:40)
[2016-12-28] MEDS ORDERED: PROAMATINE10 MG PO (12:43)
[2016-12-28] MEDS ORDERED: BACTRIM DS1 TAB PO (12:45)
[2016-12-28] MEDS ORDERED: LEVAQUIN5T PO ×2 (12:50→12:51)
[2016-12-28] MEDS ORDERED: BREO ELLIPTA 21 EACH INH (14:37)
[2016-12-28] MEDS ORDERED: SPIRIVA INH (14:38)
[2016-12-28] MEDS ORDERED: VENTOLIN HFA INH (14:38)
[2016-12-28] MEDS ORDERED: DULERA 200 MCG/13 GM INH (14:38)
== END 2016-09-11 14:11 | disposition home health service (06) | DRG 811 ==
LOC: ER 03:56 → 7NO 06:42
PROVIDERS: Internal Medicine Gastroenterology; Internal Medicine Infectious Disease; Internal Medicine Nephrology; Nurse Practitioner; Registered Nurse
PROC: 30233N1 Transfusion of Nonautologous Red Blood Cells into Peripheral Vein, Percutaneous Approach (ICD-10-PCS; principal; 2016-08-29)
PROC: 5A1D60Z (ICD-10-PCS; 2016-08-29)
DX: D62 Acute posthemorrhagic anemia (principal); N18.6 End stage renal disease; I12.0 Hypertensive chronic kidney disease with stage 5 chronic kidney disease or end stage renal disease; E11.22 Type 2 diabetes mellitus with diabetic chronic kidney disease; B19.10 Unspecified viral hepatitis B without hepatic coma; I27.2 Other secondary pulmonary hypertension; M46.26 Osteomyelitis of vertebra, lumbar region; Z51.5 Encounter for palliative care; E87.79 Other fluid overload; D63.1 Anemia in chronic kidney disease; K74.60 Unspecified cirrhosis of liver; N50.89 Other specified disorders of the male genital organs; B19.20 Unspecified viral hepatitis C without hepatic coma; J44.9 Chronic obstructive pulmonary disease, unspecified; M10.9 Gout, unspecified; Z99.2 Dependence on renal dialysis; Z87.19 Personal history of other diseases of the digestive system; F17.210 Nicotine dependence, cigarettes, uncomplicated; Z79.4 Long term (current) use of insulin; Z88.5 Allergy status to narcotic agent; Z88.8 Allergy status to other drugs, medicaments and biological substances
CPT/HCPCS: 36415; 71010; 72141; 72146; 72148; 74176; 76870; 80053; 80069; 80074; 80202; 82140; 82248; 82272; 82962; 83605; 83690; 83735; 83880; 84145; 85014; 85018; 85025; 85610; 85730; 86140; 86704; 86706; 86707; 86708; 86790; 86803; 86850; 86900; 86901; 86920; 87040; 87340; 87517; 87522; 93308; 94640; 97110-GO; 97110-GP; 97162-GP; 97166-GO; 97530-GP; 97535-GO; 99285; A9270-GY; C9113; G0257; G8978-CK-GP; G8979-CJ-GP; G8987-CK-GO; G8988-CJ-GO; J3370; J3475; P9016; P9047

== ENCOUNTER 2016-09-26 17:28 | Inpatient (IN) | payer MEDICARE ==
--- NOTE | ~2016-09-26 | HP ---
History And Physical [facility] [address] [place]. [address] NAME: JUDIE TORIBIO : 65 STATUS : ADM Nilsa PAT#: [id number] AGE: 50 ADM/REG DATE : 09/26/16 MR#: [id number] REPORT SERV DATE: 09/26/16 DICTATED BY: URI MOSHER DATE: 09/26/16 REPORT STATUS : Draft TRANSCRIBED BY: MODL DATE: 09/26/16 DATE OF ADMISSION: 09/26/2016 CHIEF COMPLAINT: Altered mentation and infection. HISTORY OF PRESENT ILLNESS: Mr. Toribio is an unfortunate 50-year-old white male with ESRD who dialyzes TTS at [facility] through a chronic PermCath. He has had an extensive and complicated medical history over the last several months. He has had recurrent bacteremia from an infected PermCath resulting in L4-L5 diskitis with gram-positive cocci and Stenotrophomonas on blood cultures. He had septic pulmonary emboli in July 2016. He has been treated with outpatient vancomycin and Levaquin per ID for the past several weeks. Apparently, he went home from [facility] two weeks ago at which time he refused hospice because he would have to stop chronic dialysis. Apparently, they could not afford the oral Levaquin prescription, and he has not had antibiotics for the past several days. He did not go to dialysis at the clinic today. He was directed to the ER per the Dialysis Clinic because on September 24 surveillance blood cultures grew out gram-negative rods 2/2 and gram- positive cocci in pair of chains in 1 out of 2 cultures. Here at the ER, his potassium was 4.7. 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 Chest x-ray showed stable venous congestion. White count 8,300, and ammonia level was 29. Per his fiancee, his mental status has significantly improved since arrival here to the ER. PAST MEDICAL HISTORY: 1. End-stage renal disease, chronic PermCath Friday, , Friday at [facility]. 2. COPD with ongoing tobacco abuse. 3. Cirrhosis with ascites. 4. Duodenal AVMs with anemia. 5. Hypotension. 6. Insulin-dependent diabetes mellitus. 7. Anemia. 8. Thrombocytopenia. 9. Chronic pain on multiple medications. 10.Hepatitis B and C positive. 11.L4-L5 osteomyelitis, not a surgical candidate because of risk. 12.Recurrent gram-positive cocci and gram-negative tristan bacteremia as per HPI. MEDICATIONS: At home; albuterol inhaler, Levaquin 500 mg q.48 hours presently not taking, sliding-scale insulin, Reglan 10 mg a.c. and at bedtime, Dulera inhaler, MS Contin 60 mg q.8 hours., Roxicodone 10 mg q.6 hours p.r.n. pain, Protonix, Viread 300 mg every week, Spiriva inhaler, vancomycin with dialysis, and Ambien p.r.n. at bedtime. FAMILY HISTORY: Noncontributory. SOCIAL HISTORY: Ongoing tobacco abuse, has a supportive fiance. REVIEW OF SYSTEMS: History And Physical [address] [address] NAME: JUDIE TORIBIO : 65 STATUS : ADM Nilsa PAT#: [id number] AGE: 50 ADM/REG DATE : 09/26/16 MR#: [id number] REPORT SERV DATE: 09/26/16 DICTATED BY: URI MOSHER DATE: 09/26/16 REPORT STATUS : Draft TRANSCRIBED BY: LISSETT DATE: 09/26/16 Please see HPI. PHYSICAL EXAMINATION: VITAL SIGNS: Temperature 98.6, pulse 82, respirations 16, blood pressure 108/62. GENERAL: He is a chronically ill-appearing, middle-aged white male, who is awake, alert, and oriented. He is cooperative with the exam. Difficult to obtain details regarding recent events. He is in no distress. NECK: His right IJ PermCath is bandaged, appears clean, dry, and intact. CHEST: Bilateral rhonchi without dyspnea. Regular rate and rhythm. 2/6 murmur. ABDOMEN: Soft, distended with ascites. Nontender to palpation without rebound, guarding, or peritoneal signs. EXTREMITIES: 2+ pitting anasarca is noted. SKIN: Shows no rash. LABORATORY DATA: Sodium 128, potassium 4.7, bicarb 26, BUN 33, creatinine 4.5, calcium 7.8, magnesium 1.9. Albumin 2.3, bilirubin 1.0, and troponin normal. White count 8,300, hemoglobin 7.8, platelets 98,000, INR 1.3. Ammonia 29. ASSESSMENT AND PLAN: Mr. Toribio has end-stage renal disease, on maintenance dialysis who missed dialysis earlier today presents with altered mentation which appears improved, anasarca, thrombocytopenia, anemia, hypoalbuminemia, hyponatremia, recurrent gram-negative tristan and gram-positive cocci, bacteremia with chronic PermCath and L4-5 osteo. He apparently declined hospice at last time of discharge. Admit to the Renal Service. Restart IV Levaquin and continue IV vancomycin. May need PermCath exchange ?. He is not a candidate for diskitis surgery at this time. We will hold sedating medications for now. We will plan dialysis tomorrow and again on Friday. Supportive care. Watch labs. Family updated in room and agree with treatment plan. Group will take over care. CHAITANYA/LISSETT Uri Mosher M.D. / [id number]
--- NOTE | ~2016-09-26 | DS ---
Discharge Summary [facility] [address] [place]. [address] NAME: JUDIE MARK : 65 STATUS : DIS IN PAT#: [id number] AGE: 50 ADM/REG DATE : 09/27/16 MR#: [id number] REPORT SERV DATE: 10/11/16 DICTATED BY: MIKE SETH DATE: 10/10/16 REPORT STATUS : Draft TRANSCRIBED BY: LISSETT DATE: 10/10/16 Data Collection from hospitalization DISCHARGE DIAGNOSES: 1. Bacteremia - multiorganism. 2. Fungemia. 3. End-stage renal disease. 4. Cirrhosis. 5. Hepatitis B and C. 6. L4/5 diskitis. 7. Chronic pain. 8. Chronic obstructive pulmonary disease. 9. Insulin-dependent diabetes mellitus. 10.Hypotension. 11.Anemia. 12.Tobacco use. CONSULTATIONS: 1. Dr. Robb Pal. 2. Dr. Edis Marroquin. 3. ZACH Hurley. PROCEDURES PERFORMED: CT scan of the brain without contrast, 09/26/2016. MEDICATIONS: Roxicodone 15 mg every four hours as needed, Protonix 40 mg twice a day, Septra DS one tablet daily, Viread 300 mg every seven days, Spiriva one inhalation daily as instructed, vancomycin 500 mg IV after dialysis as instructed, Diflucan as instructed. CONDITION AT DISCHARGE: Stable. DISPOSITION: The patient was discharged home to be followed by home health care on a renal diet with activities as instructed. He would follow up with Dr. Edis Duran 10/18/2016. [place] [facility] [place] HOSPITAL COURSE: This is an unfortunate 50-year-old man who has end-stage renal disease. He dialyzes through a chronic PermCath. He has had an extensive complicated medical history over the past several months. He had developed recurrent bacteremia from an infected PermCath resulting in L4-L5 diskitis with gram positive cocci and Stenotrophomonas on blood cultures. He had septic pulmonary emboli in July of 2016. He had been treated with outpatient vancomycin and Levaquin over the past several weeks prior to this admission. Apparently, he went home from [facility] 2 weeks prior to this admission, at which time, he refused hospice because he would have to stop chronic dialysis. Apparently they could not afford the oral Levaquin prescription and he had not had antibiotics over the past several days. He did not go to dialysis on the day of this admission. He was directed to the emergency room by the Dialysis Clinic on September 24 surveillance blood cultures grew out gram- negative rods 2/2 and gram positive cocci and pair of chains in 1/2 cultures. In the emergency room, his potassium was 4.7. 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 Chest x-ray did show stable venous congestion. Ammonia level was 29. According to his Discharge Summary [place] [address] [facility] [place]. [address] NAME: JUDIE MARK : 65 STATUS : DIS IN PAT#: [id number] AGE: 50 ADM/REG DATE : 09/27/16 MR#: [id number] REPORT SERV DATE: 10/11/16 DICTATED BY: MIKE SETH DATE: 10/10/16 REPORT STATUS : Draft TRANSCRIBED BY: MODL DATE: 10/10/16 nicolle, his mental status had significantly improved since his arrival here to the emergency room. He was admitted to the hospital for further evaluation and treatment. Upon admission, we restarted IV Levaquin and IV vancomycin. He was not a candidate for diskitis surgery at this time. Sedating medications would be held for now. Dialysis would be performed the following day and again on Friday. The following day, he was requesting that his pain medication be increased. Hemodialysis therapy was performed. He was seen by Jay Sevilla. The patient had undergone an EGD that had shown gastroparesis, a single nonbleeding angioectasia in the duodenum. CT scan in August of 2016 had shown liver/spleen, nodular. The spleen was also enlarged. There was underlying cirrhosis. Viread was continued. It was felt the patient would need to follow up with Dr. Abraham Vicente as an outpatient for hepatitis C treatment options. If he continued to complain of increased abdominal distention, it was felt that he may need to undergo an ultrasound-guided paracentesis and possible fluid analysis. On the , he became a full admit. On 09/28/2016, he had no edema. His creatinine level was 4.96. He seemed to have good pain control. He had a normal respiratory effort. On 09/29/2016, he was seen by Dr. Robb Pal regarding bloodstream infection. The patient had been receiving vancomycin and Levaquin. He had received a dose of gentamicin, IV Septra had been started. Repeat blood cultures were obtained. One of those was already positive for gram-negative rods. The patient had been afebrile, his white count was normal. He continued to have low back pain. He denied any pain associated with his dialysis catheter. Chest x-ray was negative. His impression included Stenotrophomonas sepsis, the source was likely the dialysis catheter. This was supported by the blood culture that had been obtained the day previously from the dialysis catheter. It was felt that his lumbar osteomyelitis was a much less likely source. The status of the patient's lumbar osteomyelitis was not clear. It had been fairly stable in appearance on imaging studies, but we would have to presume that he had ongoing active infection. His clinical picture is also complicated by his cirrhosis. The dialysis catheter was going to be removed, and he would have a temporary Vas-Cath placed before a new PermCath was placed at a later date. While the patient was in the hospital, we would continue daily IV Septra along with his vancomycin after dialysis. Once he was discharged, he could resume Levaquin. This Stenotrophomonas was "sensitive" to Levaquin in the micro lab at [facility]; however, the reliability of Levaquin in treating the Stenotrophomonas was uncertain. Following day, he was afebrile. He was wanting to go home. He did have discomfort from the abdominal distention. Fluconazole was going to be added to his regimen. Cefepime was also added for Klebsiella. Septra was continued for Stenotrophomonas. Hemodialysis therapy was performed. He complained of neck pain and requested more pain medication. He was drowsy, blood culture was positive for Kerri albicans. It had been positive for E. coli on 09/28/2016. The PermCath was going to be removed after hemodialysis that day and a Vas Cath would be placed. His prognosis was felt to be poor. Given the multiple organisms, the PermCath was removed. On 10/01/2016, the patient was seen by Dr. Edis Duran. 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 The patient has osteomyelitis/diskitis in the spine from previous sepsis but was not felt to be a surgical candidate. He continued dialysis at his request. It was felt that the patient had marginal comprehension of the overall terminal nature of his multiple problems. He expressed a desire intermittently to his significant other. He wanted to continue dialysis at this point. Despite that, a Discharge Summary [facility] [address] [place]. [address] NAME: JUDIE MARK : 65 STATUS : DIS IN PAT#: [id number] AGE: 50 ADM/REG DATE : 09/27/16 MR#: [id number] REPORT SERV DATE: 10/11/16 DICTATED BY: MIKE SETH DATE: 10/10/16 REPORT STATUS : Draft TRANSCRIBED BY: MODL DATE: 10/10/16 long discussion was held regarding several issues, one of which was artificial life support and resuscitation which Dr. Duran advised again. He was reticent to stop dialysis and access hospice care even though his condition was fairly terminal given the multitude of medical issues that he has. It was felt that until there was a real terminal event, we were going to probably not have the ability to transition him to hospice as he was relatively hesitant to do that. He said he was in pain most of the time. A long discussion was held about pain management. It was explained to him that over time, the pain would probably get worse. He was going to be discharged on morphine sulfate extended release and oxycodone for breakthrough. We would continue to support the patient over the next 2-4 months, and he expected that sometime during this next period of time that his condition would decline further, and he would be transitioned to hospice likely. A Vas Cath would be placed when hemodialysis was needed in the next one to two days. On 10/02/2016, he had no new complaints except edema. Creatinine was 4.51. Vas Cath was going to be placed, antibiotic treatment was continued. It was felt that he would probably be on IV vancomycin and oral Levaquin at discharge for four more weeks as well as oral Septra and oral fluconazole. He did appear more comfortable. Discharge planning was performed on 10/03/2016. Hemodialysis therapy was performed. He did have a bowel movement. He had no new complaints. Discharge instructions were given. Due to his improved and stable condition, he was discharged home with the above-stated instructions. Information collected by: Jocelyn Wolfe I submit the above information as my discharge summary. TG/MODL Mike Seth M.D. / [id number] CC: Nas Abdi FNP Hal Hill, M.D. Robert Warren Goldmann, M.D.
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
--- NOTE | ~2016-09-26 | CN ---
Consultation Report [facility] [address] [place]. [address] NAME: JUDIE MARK : 65 STATUS : ADM IN [facility]#: [id number] AGE: 50 ADM/REG DATE : 09/27/16 MR#: [id number] REPORT SERV DATE: 09/30/16 DICTATED BY: NANY PAL DATE: 09/29/16 REPORT STATUS : Draft TRANSCRIBED BY: MODL DATE: 09/29/16 INFECTIOUS DISEASE CONSULTATION DATE OF CONSULTATION: 09/29/2016 REASON FOR CONSULTATION: Bloodstream infection. HISTORY OF PRESENT ILLNESS: This is a 50-year-old man, well known to me from previous consultations and inpatient followups since July. He has end-stage renal disease and is on dialysis and also has cirrhosis secondary to chronic hepatitis B and C. Earlier this year, he was found to have a lumbar vertebral osteomyelitis. This was initially noted on changes in imaging studies done during [facility] admissions back in May. Since May and even before, he has had multiple episodes of bacteremias with a variety of different organisms including MRSA, Acinetobacter, Stenotrophomonas, and Enterobacter. During his July admission here, he underwent a CT-guided biopsy of the L4-L5 disk space and vertebral bodies and this confirmed osteomyelitis on pathology. Cultures though were negative. The patient has been treated with an empiric regimen designed to try to cover these multiple possible pathogens. The patient also has been evaluated by different orthopedic spine surgeons regarding surgical therapy of a spine infection. During his last admission, he finally elected not to pursue surgery and understands that with his multiple medical problems, the surgery would be high risk, but that without it, the infection may not be cured and this could lead to his . The patient was discharged on continued antibiotic therapy after his last admission on vancomycin given in the dialysis clinic along with oral Levaquin 500 mg p.o. every 48 hours. The patient tells me he started having some recent fevers leading to the blood cultures being drawn at dialysis on 09/24. These returned with Stenotrophomonas. There was a note that one of them also had gram-positive cocci, but that is not part of the final report from the [facility]. The patient was admitted on 09/26 and has been given antibiotics with vancomycin and Levaquin, we also gave him a dose of gentamicin, and we have started him on Septra IV yesterday. Blood cultures were repeated here yesterday with one set drawn from each of the ports of the dialysis catheter, one of those is already positive for gram-negative tristan. The patient has been afebrile, his white blood cell count is normal. He continues to have chronic low back pain. He denies any pain associated with his dialysis catheter. PAST MEDICAL HISTORY: As outlined above and on previous notes. He has been followed by Dr. Vicente for his chronic hepatitis B and C and cirrhosis and is on weekly tenofovir with negative hepatitis B DNA twice this year. He does have positive hepatitis C RNA in his blood. ALLERGIES: HYDROCODONE, TRAMADOL, NEURONTIN, STADOL, REQUIP, LYRICA. PRESENT MEDICATIONS: In addition to the antibiotics include insulin sliding scale, MS Contin, Protonix, tenofovir, Spiriva. SOCIAL HISTORY: He lives with his significant other. Long-term tobacco history. Consultation Report [address] [place]. [address] NAME: JUDIE MARK : 65 STATUS : ADM IN [facility]#: [id number] AGE: 50 ADM/REG DATE : 09/27/16 MR#: [id number] REPORT SERV DATE: 09/30/16 DICTATED BY: NANY PAL DATE: 09/29/16 REPORT STATUS : Draft TRANSCRIBED BY: LISSETT DATE: 09/29/16 Nondrinker. FAMILY HISTORY: Noncontributory. REVIEW OF SYSTEMS: Otherwise negative. PHYSICAL EXAMINATION: VITAL SIGNS: He is afebrile. Blood pressure 119/66, pulse 66, respiratory rate 14, oxygen saturation 100% on 4 L. GENERAL: The patient is in no acute distress. HEAD AND NECK: Show a clear oral cavity. No thrush. LUNGS: Clear to auscultation. BACK: He does have tenderness to palpation over his lumbar spine area. CARDIAC: Regular rate and rhythm. Normal S1 and S2. Very soft 1/6 systolic ejection murmur at lower left sternal border. Dialysis catheter in the right upper chest shows no erythema around it, no tenderness to palpation along the tunnel. ABDOMEN: Mildly distended, soft and nontender. EXTREMITIES: He has chronic lower extremity edema. LABORATORY STUDIES: White blood cell count 7.1, hemoglobin 7.6, platelets 84,000. Albumin 2.3, alkaline phosphatase 225, other liver function tests are normal. Microbiology studies are as outlined above. Chest x-ray is negative. IMPRESSION: Stenotrophomonas sepsis. The source is likely the dialysis catheter. This is supported by the blood culture that is already positive from yesterday's draw from the dialysis catheter. I believe his lumbar osteomyelitis is a much less likely source. I doubt SBP. The status of the patient's lumbar osteomyelitis is not clear. It has been fairly stable in appearance on imaging studies, but have to presume he has ongoing active infection. The patient's clinical picture is complicated also by his cirrhosis. PLAN: 1. Discussed with Dr. Howard. We will remove the dialysis catheter and then have a temporary Vas-Cath placed before new PermCath is placed at a later date. 2. While the patient is in the hospital, we will continue the daily IV Septra dose along with his vancomycin after dialysis. 3. Once the patient is discharged, he can resume Levaquin every 48 hours. The Stenotrophomonas is "sensitive" to Levaquin in the micro lab at [facility]. However, the reliability of Levaquin in treating the Stenotrophomonas is uncertain. /LISSETT Nany Pal, Consultation Report [place] [id number] [facility] [place]. [address] NAME: JUDIE MARK : 65 STATUS : ADM IN [facility]#: [id number] AGE: 50 ADM/REG DATE : 09/27/16 MR#: [id number] REPORT SERV DATE: 09/30/16 DICTATED BY: NANY PAL DATE: 09/29/16 REPORT STATUS : Draft TRANSCRIBED BY: LISSETT DATE: 09/29/16 Nas / [id number] CC: Nas Abdi Jr, M.D.
[2016-09-26 17:18] LABS: ALLENS TEST Pos; BE (BASE EXCESS) 0.7 MEQ/L (0 +/- 2.5); DEVICE NC; HCO3 (ACTUAL BICARBONATE) 24.1 MEQ/L (23-27); INSTRUMENT SERIAL # 8087; PCO2 (CO2 TENSION) 35 MMHG (35-45); PO2 (O2 TENSION) 111 MMHG (79-93); SAMPLE Arterial; pH 7.46 (7.37-7.43)
[2016-09-26 17:28] LABS: BASOPHILS 0.1 %; BASOPHILS ABSOLUTE 0.01 10/3/uL (0.0-0.16); EOSINOPHILS 0.4 %; EOSINOPHILS ABSOLUTE 0.03 10/3/uL (0.0-0.53); HEMOGLOBIN 7.8 g/dL (13.6-17.8); IMMATURE GRANULOCYTES 0.2 %; IMMATURE GRANULOCYTES ABSOLUTE 0.02 10/3/uL (0.0-0.11); LYMPHOCYTES 12.4 %; LYMPHOCYTES ABSOLUTE 1.02 10/3/uL (0.67-4.30); MEAN CORPUSCULAR HEMOGLOB 28.9 pg (26.0-34.0); MEAN CORPUSCULAR VOLUME 86.3 fL (80-100); MEAN PLATELET VOLUME 10.1 fL (9.2-13.0); MONOCYTES 7.8 %; MONOCYTES ABSOLUTE 0.64 10/3/uL (0.21-1.20); NEUTROPHILS 79.1 %; NEUTROPHILS ABSOLUTE 6.53 10/3/uL (2.02-8.40); PLATELET COUNT 98 10/3/uL (150-400)
[~2016-09-26 17:28] MED LIST changes: +AMB5 PO; +AVINZA60 PO; +VANCO500 IV
[2016-09-26 17:29] LABS: ER CBC TAT 0 Hrs 05 Mins; HEMATOCRIT 23.3 % (40.0-51.0); MANUAL DIFF NO %; MEAN CORPUS HGB CONC 33.5 g/dL (32.0-36.0); WHITE BLOOD CELLS 8.3 10/3/uL (4.5-10.5)
[2016-09-26 17:36] LABS: INTERNATIONAL NORMAL RATI 1.3 UNITS (-); PARTIAL THROMBO TIME 38.9 SEC (22.5-37.2); PROTIME (NOT ORD) 16.2 SEC (12.0-14.5)
[2016-09-26 17:44] LABS: ACETAMINOPHEN LEVEL (TYLENOL) 3.1 MCG/ML (10.0-20.0); ALBUMIN 2.3 G/DL (3.5-5.0); CALCIUM, SERUM 7.8 MG/DL (8.5-10.4); CHEST PAIN PROFILE TAT 0 Hrs 20 Mins; CO2 (CARBON DIOXIDE) 26 MMOL/L (24-34); GLUCOSE, SERUM 96 MG/DL (60-99); POTASSIUM, SERUM 4.7 MMOL/L (3.5-5.3); SGOT(AST) 11 U/L (5-40); SGPT(ALT) 9 U/L (5-65); TOTAL PROTEIN 7.2 G/DL (6.0-8.5); TROPONIN I <0.02 NG/ML (<0.05)
[2016-09-26 17:45] LABS: ALCOHOL < 10 MG/DL (0); ALKALINE PHOSPHATASE 225 U/L (45-117); BUN (BLOOD UREA NITROGEN) 33 MG/DL (6-23); CHLORIDE, SERUM 94 MMOL/L (96-112); CREATININE 4.49 MG/DL (0.70-1.30); DIRECT BILIRUBIN 0.6 MG/DL (0.0-0.4); GFR AFRICAN AMERICAN 16 ML/MIN (>=60); GFR NON AFRICAN AMERICAN 14 ML/MIN (>=60); INDIRECT BILIRUBIN(NOT ORDER) 0.4 MG/DL (0.1-0.9); SALICYLATE < 1.7 MG/DL (-); SODIUM, SERUM 128 MMOL/L (135-148)
[2016-09-26] MEDS ORDERED: ROXICODONE15 MG PO (20:02)
[2016-09-27 13:32] LABS: BASOPHILS 0.2 %; BASOPHILS ABSOLUTE 0.01 10/3/uL (0.0-0.16); EOSINOPHILS 0.5 %; EOSINOPHILS ABSOLUTE 0.03 10/3/uL (0.0-0.53); HEMATOCRIT 24.1 % (40.0-51.0); HEMOGLOBIN 7.8 g/dL (13.6-17.8); IMMATURE GRANULOCYTES 0.8 %; IMMATURE GRANULOCYTES ABSOLUTE 0.05 10/3/uL (0.0-0.11); LYMPHOCYTES 4.1 %; LYMPHOCYTES ABSOLUTE 0.26 10/3/uL (0.67-4.30); MEAN CORPUS HGB CONC 32.4 g/dL (32.0-36.0); MEAN CORPUSCULAR HEMOGLOB 28.5 pg (26.0-34.0); MEAN PLATELET VOLUME 9.9 fL (9.2-13.0); MONOCYTES 1.9 %; MONOCYTES ABSOLUTE 0.12 10/3/uL (0.21-1.20); NEUTROPHILS 92.5 %; NEUTROPHILS ABSOLUTE 5.87 10/3/uL (2.02-8.40); PLATELET COUNT 83 10/3/uL (150-400); RBC DISTRIBUTION WIDTH 17.7 % (12.0-16.0); RED CELL COUNT 2.74 10/6/uL (4.7-6.1); WHITE BLOOD CELLS 6.3 10/3/uL (4.5-10.5)
[2016-09-27 13:33] LABS: MANUAL DIFF NO %
[2016-09-27 13:50] LABS: ALBUMIN 2.2 G/DL (3.5-5.0); BUN (BLOOD UREA NITROGEN) 40 MG/DL (6-23); CALCIUM, SERUM 7.7 MG/DL (8.5-10.4); CHLORIDE, SERUM 93 MMOL/L (96-112); CO2 (CARBON DIOXIDE) 26 MMOL/L (24-34); CREATININE 4.96 MG/DL (0.70-1.30); GFR AFRICAN AMERICAN 15 ML/MIN (>=60); GFR NON AFRICAN AMERICAN 13 ML/MIN (>=60); GLUCOSE, SERUM 75 MG/DL (60-99); PHOSPHORUS, SERUM 5.5 MG/DL (2.5-4.5); POTASSIUM, SERUM 4.8 MMOL/L (3.5-5.3); SODIUM, SERUM 126 MMOL/L (135-148)
[2016-09-28 07:47] LABS: BASOPHILS 0.1 %; BASOPHILS ABSOLUTE 0.01 10/3/uL (0.0-0.16); EOSINOPHILS 0.7 %; EOSINOPHILS ABSOLUTE 0.05 10/3/uL (0.0-0.53); HEMATOCRIT 23.2 % (40.0-51.0); HEMOGLOBIN 7.6 g/dL (13.6-17.8); IMMATURE GRANULOCYTES 0.7 %; IMMATURE GRANULOCYTES ABSOLUTE 0.05 10/3/uL (0.0-0.11); LYMPHOCYTES 22.3 %; LYMPHOCYTES ABSOLUTE 1.58 10/3/uL (0.67-4.30); MEAN CORPUS HGB CONC 32.8 g/dL (32.0-36.0); MEAN CORPUSCULAR HEMOGLOB 28.6 pg (26.0-34.0); MEAN CORPUSCULAR VOLUME 87.2 fL (80-100); MONOCYTES 9.3 %; MONOCYTES ABSOLUTE 0.66 10/3/uL (0.21-1.20); NEUTROPHILS 66.9 %; NEUTROPHILS ABSOLUTE 4.72 10/3/uL (2.02-8.40); PLATELET COUNT 84 10/3/uL (150-400); RBC DISTRIBUTION WIDTH 18.1 % (12.0-16.0); RED CELL COUNT 2.66 10/6/uL (4.7-6.1); WHITE BLOOD CELLS 7.1 10/3/uL (4.5-10.5)
[2016-09-28 07:50] LABS: MANUAL DIFF NO %
[2016-09-28 08:04] LABS: ALBUMIN 2.3 G/DL (3.5-5.0); CALCIUM, SERUM 7.8 MG/DL (8.5-10.4); CHLORIDE, SERUM 97 MMOL/L (96-112); CO2 (CARBON DIOXIDE) 29 MMOL/L (24-34); PHOSPHORUS, SERUM 4.9 MG/DL (2.5-4.5); POTASSIUM, SERUM 4.2 MMOL/L (3.5-5.3); SODIUM, SERUM 131 MMOL/L (135-148)
[2016-09-28 08:05] LABS: BUN (BLOOD UREA NITROGEN) 28 MG/DL (6-23); CREATININE 3.99 MG/DL (0.70-1.30); GFR AFRICAN AMERICAN 19 ML/MIN (>=60); GFR NON AFRICAN AMERICAN 16 ML/MIN (>=60); GLUCOSE, SERUM 107 MG/DL (60-99)
[2016-09-29 07:30] LABS: ALBUMIN 2.3 G/DL (3.5-5.0); BUN (BLOOD UREA NITROGEN) 25 MG/DL (6-23); CHLORIDE, SERUM 100 MMOL/L (96-112); CREATININE 3.64 MG/DL (0.70-1.30); GFR AFRICAN AMERICAN 21 ML/MIN (>=60); GFR NON AFRICAN AMERICAN 18 ML/MIN (>=60); GLUCOSE, SERUM 94 MG/DL (60-99); PHOSPHORUS, SERUM 4.5 MG/DL (2.5-4.5); POTASSIUM, SERUM 4.5 MMOL/L (3.5-5.3); SODIUM, SERUM 131 MMOL/L (135-148)
[2016-09-29 07:31] LABS: CO2 (CARBON DIOXIDE) 20 MMOL/L (24-34)
[2016-09-29 08:37] LABS: BASOPHILS 0.2 %; BASOPHILS ABSOLUTE 0.01 10/3/uL (0.0-0.16); EOSINOPHILS 0.9 %; EOSINOPHILS ABSOLUTE 0.05 10/3/uL (0.0-0.53); HEMATOCRIT 25.4 % (40.0-51.0); HEMOGLOBIN 8.1 g/dL (13.6-17.8); IMMATURE GRANULOCYTES 0.5 %; IMMATURE GRANULOCYTES ABSOLUTE 0.03 10/3/uL (0.0-0.11); LYMPHOCYTES 25.4 %; LYMPHOCYTES ABSOLUTE 1.47 10/3/uL (0.67-4.30); MEAN CORPUS HGB CONC 31.9 g/dL (32.0-36.0); MEAN CORPUSCULAR VOLUME 87.9 fL (80-100); MEAN PLATELET VOLUME 11.1 fL (9.2-13.0); MONOCYTES 7.8 %; MONOCYTES ABSOLUTE 0.45 10/3/uL (0.21-1.20); NEUTROPHILS 65.2 %; NEUTROPHILS ABSOLUTE 3.77 10/3/uL (2.02-8.40); PLATELET COUNT 101 10/3/uL (150-400); RED CELL COUNT 2.89 10/6/uL (4.7-6.1); WHITE BLOOD CELLS 5.8 10/3/uL (4.5-10.5)
[2016-09-29 08:39] LABS: MANUAL DIFF NO %
[2016-09-30 13:50] LABS: BASOPHILS 0.2 %; BASOPHILS ABSOLUTE 0.01 10/3/uL (0.0-0.16); EOSINOPHILS 0.9 %; EOSINOPHILS ABSOLUTE 0.04 10/3/uL (0.0-0.53); HEMATOCRIT 23.4 % (40.0-51.0); HEMOGLOBIN 7.6 g/dL (13.6-17.8); IMMATURE GRANULOCYTES 0.2 %; IMMATURE GRANULOCYTES ABSOLUTE 0.01 10/3/uL (0.0-0.11); LYMPHOCYTES 34.3 %; LYMPHOCYTES ABSOLUTE 1.45 10/3/uL (0.67-4.30); MEAN CORPUS HGB CONC 32.5 g/dL (32.0-36.0); MEAN CORPUSCULAR HEMOGLOB 28.6 pg (26.0-34.0); MEAN PLATELET VOLUME 10.2 fL (9.2-13.0); MONOCYTES 6.4 %; MONOCYTES ABSOLUTE 0.27 10/3/uL (0.21-1.20); NEUTROPHILS ABSOLUTE 2.45 10/3/uL (2.02-8.40); PLATELET COUNT 98 10/3/uL (150-400); RBC DISTRIBUTION WIDTH 17.6 % (12.0-16.0); RED CELL COUNT 2.66 10/6/uL (4.7-6.1); WHITE BLOOD CELLS 4.2 10/3/uL (4.5-10.5)
[2016-09-30 13:53] LABS: MANUAL DIFF NO %
[2016-09-30 14:02] LABS: ALBUMIN 2.5 G/DL (3.5-5.0); CALCIUM, SERUM 7.9 MG/DL (8.5-10.4); CHLORIDE, SERUM 100 MMOL/L (96-112); GLUCOSE, SERUM 82 MG/DL (60-99); POTASSIUM, SERUM 4.6 MMOL/L (3.5-5.3); SODIUM, SERUM 132 MMOL/L (135-148)
[2016-09-30 14:03] LABS: BUN (BLOOD UREA NITROGEN) 35 MG/DL (6-23); CO2 (CARBON DIOXIDE) 25 MMOL/L (24-34); CREATININE 4.51 MG/DL (0.70-1.30); GFR AFRICAN AMERICAN 16 ML/MIN (>=60); GFR NON AFRICAN AMERICAN 14 ML/MIN (>=60)
[2016-10-02 10:00] LABS: BASOPHILS 0.5 %; BASOPHILS ABSOLUTE 0.02 10/3/uL (0.0-0.16); EOSINOPHILS 1.6 %; EOSINOPHILS ABSOLUTE 0.07 10/3/uL (0.0-0.53); HEMATOCRIT 24.9 % (40.0-51.0); LYMPHOCYTES 38.7 %; LYMPHOCYTES ABSOLUTE 1.67 10/3/uL (0.67-4.30); MEAN CORPUS HGB CONC 32.1 g/dL (32.0-36.0); MEAN CORPUSCULAR HEMOGLOB 28.5 pg (26.0-34.0); MEAN CORPUSCULAR VOLUME 88.6 fL (80-100); MEAN PLATELET VOLUME 9.9 fL (9.2-13.0); MONOCYTES 7.2 %; MONOCYTES ABSOLUTE 0.31 10/3/uL (0.21-1.20); NEUTROPHILS ABSOLUTE 2.25 10/3/uL (2.02-8.40); PLATELET COUNT 102 10/3/uL (150-400); RBC DISTRIBUTION WIDTH 17.6 % (12.0-16.0); RED CELL COUNT 2.81 10/6/uL (4.7-6.1); WHITE BLOOD CELLS 4.3 10/3/uL (4.5-10.5)
[2016-10-02 10:04] LABS: MANUAL DIFF NO %
[2016-10-02 10:24] LABS: ALBUMIN 2.5 G/DL (3.5-5.0); CALCIUM, SERUM 8.1 MG/DL (8.5-10.4); CHLORIDE, SERUM 100 MMOL/L (96-112); CO2 (CARBON DIOXIDE) 28 MMOL/L (24-34); CREATININE 4.32 MG/DL (0.70-1.30); GFR AFRICAN AMERICAN 17 ML/MIN (>=60); GFR NON AFRICAN AMERICAN 15 ML/MIN (>=60); GLUCOSE, SERUM 82 MG/DL (60-99); PHOSPHORUS, SERUM 5.6 MG/DL (2.5-4.5); POTASSIUM, SERUM 4.5 MMOL/L (3.5-5.3); SODIUM, SERUM 132 MMOL/L (135-148); VANCOMYCIN TROUGH 24.9 MCG/ML (10.0-20.0)
[2016-10-02 10:25] LABS: BUN (BLOOD UREA NITROGEN) 26 MG/DL (6-23)
[2016-10-03 07:44] LABS: BASOPHILS 0.2 %; BASOPHILS ABSOLUTE 0.01 10/3/uL (0.0-0.16); EOSINOPHILS ABSOLUTE 0.04 10/3/uL (0.0-0.53); HEMATOCRIT 23.2 % (40.0-51.0); HEMOGLOBIN 7.5 g/dL (13.6-17.8); IMMATURE GRANULOCYTES 0.5 %; IMMATURE GRANULOCYTES ABSOLUTE 0.02 10/3/uL (0.0-0.11); LYMPHOCYTES 32.3 %; LYMPHOCYTES ABSOLUTE 1.35 10/3/uL (0.67-4.30); MEAN CORPUS HGB CONC 32.3 g/dL (32.0-36.0); MEAN CORPUSCULAR HEMOGLOB 28.2 pg (26.0-34.0); MEAN CORPUSCULAR VOLUME 87.2 fL (80-100); MEAN PLATELET VOLUME 9.4 fL (9.2-13.0); MONOCYTES 6.5 %; MONOCYTES ABSOLUTE 0.27 10/3/uL (0.21-1.20); NEUTROPHILS 59.5 %; NEUTROPHILS ABSOLUTE 2.49 10/3/uL (2.02-8.40); PLATELET COUNT 89 10/3/uL (150-400); RBC DISTRIBUTION WIDTH 17.4 % (12.0-16.0); RED CELL COUNT 2.66 10/6/uL (4.7-6.1); WHITE BLOOD CELLS 4.2 10/3/uL (4.5-10.5)
[2016-10-03 07:45] LABS: MANUAL DIFF NO %
[2016-10-03 08:04] LABS: ALBUMIN 2.6 G/DL (3.5-5.0); CALCIUM, SERUM 8.3 MG/DL (8.5-10.4); CHLORIDE, SERUM 99 MMOL/L (96-112); CO2 (CARBON DIOXIDE) 27 MMOL/L (24-34); GLUCOSE, SERUM 77 MG/DL (60-99); POTASSIUM, SERUM 4.9 MMOL/L (3.5-5.3); SODIUM, SERUM 135 MMOL/L (135-148)
[2016-10-03 08:05] LABS: BUN (BLOOD UREA NITROGEN) 32 MG/DL (6-23); CREATININE 5.07 MG/DL (0.70-1.30); GFR AFRICAN AMERICAN 14 ML/MIN (>=60); GFR NON AFRICAN AMERICAN 12 ML/MIN (>=60); PHOSPHORUS, SERUM 6.6 MG/DL (2.5-4.5)
[2016-10-03] MEDS ORDERED: SEPTRA DS1 TAB PO (12:46)
[2016-11-28] MEDS ORDERED: MSCONT60 PO (23:09)
[2016-11-28] MEDS ORDERED: DSS PO (23:09)
[2016-11-28] MEDS ORDERED: REM15 PO (23:10)
[2016-11-28] MEDS ORDERED: ROXICODONE15 MG PO (23:10)
[2016-11-28] MEDS ORDERED: LEVEMIR (23:10)
[2016-11-28] MEDS ORDERED: SPIRIVA INH (23:11)
[2016-11-28] MEDS ORDERED: PRILOSEC40 MG PO (23:11)
[2016-11-28] MEDS ORDERED: BREO ELLIPTA INH (23:11)
[2016-11-28] MEDS ORDERED: PROAIR HFA INH (23:11)
[2016-11-28] MEDS ORDERED: COREG12 PO (23:11)
[2016-11-28] MEDS ORDERED: REG PO (23:12)
[2016-12-06] MEDS ORDERED: LEVAQUIN5T PO (19:26)
[2016-12-06] MEDS ORDERED: NEPHRO PO (19:32)
[2016-12-22] MEDS ORDERED: MSCONT60 PO (15:56)
[2016-12-22] MEDS ORDERED: ROXICODONE15 MG PO ×2 (15:56)
[2016-12-22] MEDS ORDERED: REM15 PO (15:57)
[2016-12-22] MEDS ORDERED: LEVEMFLXPN SC (15:57)
[2016-12-22] MEDS ORDERED: BREO ELLIPTA 21 EACH INH (15:58)
[2016-12-22] MEDS ORDERED: COREG12 PO (15:58)
[2016-12-22] MEDS ORDERED: Proair Hfa (15:59)
[2016-12-22] MEDS ORDERED: PRILOSEC40 MG PO (15:59)
[2016-12-22] MEDS ORDERED: Spiriva Handihaler (16:00)
[2016-12-22] MEDS ORDERED: DSS PO (16:01)
[2016-12-22] MEDS ORDERED: REG PO (16:01)
[2016-12-22] MEDS ORDERED: PROTONIX PO (16:02)
[2016-12-22] MEDS ORDERED: DULERA 200 MCG/13 GM INH (16:02)
[2016-12-22] MEDS ORDERED: NEPHRO PO (16:02)
[2016-12-22] MEDS ORDERED: [UNRECOGNIZED DRUG - OTHER] NAS (16:04)
[2016-12-28] MEDS ORDERED: METHATAB10 PO (12:40)
[2016-12-28] MEDS ORDERED: PROAMATINE10 MG PO (12:43)
[2016-12-28] MEDS ORDERED: BACTRIM DS1 TAB PO (12:45)
[2016-12-28] MEDS ORDERED: LEVAQUIN5T PO ×2 (12:50→12:51)
[2016-12-28] MEDS ORDERED: BREO ELLIPTA 21 EACH INH (14:37)
[2016-12-28] MEDS ORDERED: VENTOLIN HFA INH (14:38)
[2016-12-28] MEDS ORDERED: DULERA 200 MCG/13 GM INH (14:38)
[2016-12-28] MEDS ORDERED: SPIRIVA INH (14:38)
== END 2016-10-03 14:10 | disposition home or self-care (01) | DRG 314 ==
LOC: ER 17:28 → 4SO 20:37
PROVIDERS: Emergency Medicine; Internal Medicine Nephrology; Nurse Practitioner; Registered Nurse
PROC: 5A1D60Z (ICD-10-PCS; principal; 2016-09-27)
PROC: 05PYX3Z Removal of Infusion Device from Upper Vein, External Approach (ICD-10-PCS; 2016-09-30)
DX: T82.7XXA Infection and inflammatory reaction due to other cardiac and vascular devices, implants and grafts, initial encounter (principal); N18.6 End stage renal disease; A41.59 Other Gram-negative sepsis; A41.51 Sepsis due to Escherichia coli [E. coli]; E11.22 Type 2 diabetes mellitus with diabetic chronic kidney disease; R18.8 Other ascites; B37.7 Candidal sepsis; E87.1 Hypo-osmolality and hyponatremia; B18.1 Chronic viral hepatitis B without delta-agent; Z51.5 Encounter for palliative care; Z66 Do not resuscitate; D69.6 Thrombocytopenia, unspecified; K74.69 Other cirrhosis of liver; Y84.8 Other medical procedures as the cause of abnormal reaction of the patient, or of later complication, without mention of misadventure at the time of the procedure; Z99.81 Dependence on supplemental oxygen; M46.46 Discitis, unspecified, lumbar region; Z99.2 Dependence on renal dialysis; Z91.15 Patient's noncompliance with renal dialysis; F17.200 Nicotine dependence, unspecified, uncomplicated; D63.1 Anemia in chronic kidney disease; J44.9 Chronic obstructive pulmonary disease, unspecified; G89.29 Other chronic pain; B18.2 Chronic viral hepatitis C; Z79.891 Long term (current) use of opiate analgesic; T37.8X6A Underdosing of other specified systemic anti-infectives and antiparasitics, initial encounter; Z91.120 Patient's intentional underdosing of medication regimen due to financial hardship; Y92.009 Unspecified place in unspecified non-institutional (private) residence as the place of occurrence of the external cause; Z88.5 Allergy status to narcotic agent; Z88.8 Allergy status to other drugs, medicaments and biological substances; F17.210 Nicotine dependence, cigarettes, uncomplicated; R53.81 Other malaise; E11.43 Type 2 diabetes mellitus with diabetic autonomic (poly)neuropathy; K31.84 Gastroparesis
CPT/HCPCS: 36600; 70450; 71010; 74020; 80048; 80069; 80076; 80202; 80307; 82140; 82805; 82962; 83735; 84484; 85025; 85610; 85730; 87040; 87070; 87077; 87106; 87150; 87186; 93005; 94640; 99285; A9270-GY; G0257; J0692; J0885; J1450; J1580; J1885; J1956; J3370; P9047

== ENCOUNTER 2016-10-17 16:55 | Inpatient (IN) | payer MEDICARE, OTHER ==
--- NOTE | ~2016-10-17 | OP ---
Record Of Operation [facility] [address] [place]. [address] NAME: JUDIE MARK : 65 STATUS : ADM IN PAT#: [id number] AGE: 50 ADM/REG DATE : 10/17/16 MR#: [id number] REPORT SERV DATE: 10/29/16 DICTATED BY: BURKE BECK DATE: 10/28/16 REPORT STATUS : Draft TRANSCRIBED BY: MODSy DATE: 10/28/16 DATE OF PROCEDURE: 10/28/2016 PREOPERATIVE DIAGNOSES: 1. End-stage renal disease. 2. Recent PermCath infection. POSTOPERATIVE DIAGNOSES: 1. End-stage renal disease. 2. Recent PermCath infection. PROCEDURE: Right internal jugular PermCath. OPERATIONS CONSULTANT: None. ANESTHESIA: MAC plus local. INDICATIONS: The patient is a 50-year-old gentleman with a history of end-stage renal disease who has been dialyzed via a PermCath. The PermCath was infected, so it was removed. Now, he is consented for a new PermCath. DESCRIPTION OF PROCEDURE: After informed consent was obtained, the patient was taken to the operating room and placed in the supine position on the operating table. Monitored anesthesia was administered. The patient's right neck and chest were prepped and draped in the usual sterile fashion. Ultrasound-guided access was obtained of the right internal jugular vein. The ultrasound image was documented on the chart. I passed a wire centrally. I made small skin incisions along the right neck and chest after administering additional local anesthesia. I selected and tunneled a 19-cm curved HemoSplit catheter from the right chest to the right neck. I inserted a peel-away sheath over the aforementioned wire using fluoroscopic guidance. I inserted the catheter into the peel-away sheath under fluoroscopic guidance and peeled away the sheath. I confirmed that the catheter was not kinked and that it aspirated and flushed well. The patient tolerated the procedure well without any intraprocedural complications noted. The right neck wound was closed. The catheter was sutured in place. HAND BUNCH MAKER/LISSETT Burke Beck M.D. / [id number] CC: Jordon Huynh MD
--- NOTE | ~2016-10-17 | HP ---
History And Physical [place] [address] [facility] [place]. [address] NAME: JUDIE TORIBIO : 65 STATUS : ADM IN [facility]#: [id number] AGE: 50 ADM/REG DATE : 10/17/16 MR#: [id number] REPORT SERV DATE: 10/18/16 DICTATED BY: MIKE SETH DATE: 10/18/16 REPORT STATUS : Draft TRANSCRIBED BY: LISSETT DATE: 10/18/16 DATE OF ADMISSION: 10/17/2016 NEPHROLOGY HISTORY AND PHYSICAL INDICATION FOR ADMISSION: Gram-negative bacteremia from blood culture 10/16/2016. HISTORY OF PRESENT ILLNESS: Mr. Toribio is a 50-year-old male who dialyzes Tuesdays, , and Saturdays with history of cirrhosis, ascites, and has had recurrent bacteremias with multiple organisms as well as fungemia. He has a strong history of drug- seeking behavior and has done drugs in the past. There is a suspicion that he is using his PermCath for IV injection of drugs. He has had L4-5 diskitis. When surgery was arranged, he declined surgery due to surgical risk, therefore he has been on chronic antibiotic therapy. Currently, his cultures are gram-negative rods, but sensitivity and identification are still pending. The patient has in the past grown out MRSA, Acinetobacter, Stenotrophomonas, and Enterobacter. ALLERGIES: HYDROCODONE, TRAMADOL, GABAPENTIN, STADOL, REQUIP, LYRICA. HOME MEDICATIONS: Albuterol, NovoLog insulin, Levaquin, Reglan, Dulera, Avinza, Roxicodone, Protonix, Septra, Viread, Spiriva HandiHaler, and vancomycin. SOCIAL HISTORY: The patient lives with significant other. Apparently, chronic tobacco use. Denies alcohol use. FAMILY HISTORY: No end-stage renal disease. REVIEW OF SYSTEMS: HEENT: No change in visual acuity. No epistaxis. No otic infection. No pharyngitis. PULMONARY: Notes some shortness of breath. Intermittent cough, nonproductive. No hemoptysis. CARDIAC: No chest pain. Does have intermittent lower extremity edema. GI: Denies abdominal pain, nausea, vomiting. He is on therapy for hepatitis B and C. : Remote scrotal swelling. No gross hematuria. MUSCULOSKELETAL: Chronic back pain as well as knee pain. INTEGUMENT: Denies rash or itching. NEUROLOGIC: No lateralizing weakness or history of seizure disorder. Remainder of 12-point review of systems is negative. PAST MEDICAL HISTORY: Multiorgan bacteremias; fungemia; end-stage renal disease, dialyzing via PermCath; hepatitis B and C; L4-5 diskitis; chronic pain; COPD; hypotension; anemia; chronic tobacco use; insulin-dependent diabetes mellitus. PHYSICAL EXAMINATION: GENERAL: Chronically ill male, responsive, in no distress. History And Physical [address] [address] NAME: JUDIE TORIBIO : 65 STATUS : ADM IN PAT#: [id number] AGE: 50 ADM/REG DATE : 10/17/16 MR#: [id number] REPORT SERV DATE: 10/18/16 DICTATED BY: MIKE SETH DATE: 10/18/16 REPORT STATUS : Draft TRANSCRIBED BY: MODL DATE: 10/18/16 VITAL SIGNS: Blood pressure 104/67, temperature 98, respiratory rate 18, pulse 61. HEENT: Eyes: No scleral icterus. Pupils are equal, reactive to light. Extraocular movement intact. Nares patent. No discharge. Throat: No injection. Mucous membranes moist. NECK: No thyromegaly, masses, or bruits. CHEST/LUNGS: Late crackles posteriorly at bases. Few scattered rhonchi. CARDIAC: Regular rate and rhythm. Unable to appreciate murmur, gallop, or rub. ABDOMEN: Supple. Normoactive bowel sounds. Nontender. No hepatosplenomegaly. /RECTAL: Not performed. EXTREMITIES: 1+ edema. No calf tenderness. DERMIS: No rash. No skin lesions. NEUROLOGIC: Cranial nerves intact. No lateralizing weakness. MUSCULOSKELETAL: No deformity. IMPRESSION: 1. Gram-negative bacteremia with history of multiorgan bacteremias in the past as well as fungemia. 2. End-stage renal disease, dialyzing Friday, , Friday by PermCath. 3. Anemia. 4. Cirrhosis. 5. History of hepatitis B and hepatitis C. 6. Chronic L4-5 diskitis. 7. Chronic pain. 8. Chronic obstructive pulmonary disease. 9. Insulin-dependent diabetes mellitus. 10.Ongoing tobacco use. PLAN: 1. Admit. 2. Drug screen. 3. Infectious disease evaluation. 4. Palliative care evaluation. CG/MODL Mike Seth M.D. / [id number] CC: Jordon Huynh MD
--- NOTE | ~2016-10-17 | CN ---
Consultation Report [facility] [address] [place]. [address] NAME: JUDIE MARK : 65 STATUS : ADM IN PAT#: [id number] AGE: 50 ADM/REG DATE : 10/17/16 MR#: [id number] REPORT SERV DATE: 10/18/16 DICTATED BY: NANY PLA DATE: 10/18/16 REPORT STATUS : Draft TRANSCRIBED BY: MODL DATE: 10/18/16 INFECTIOUS DISEASE CONSULTATION DATE OF CONSULTATION: 10/18/2016 REASON FOR CONSULTATION: Septicemia. HISTORY OF PRESENT ILLNESS: This is a 50-year-old man, very well known to me from multiple inpatient admissions for vertebral osteomyelitis along with recurrent bloodstream infection secondary to dialysis catheter infections and concern for inappropriate use of his dialysis catheter with chronic pain medicine. The patient was recently in the hospital from 09/27/2016 through 10/03/2016 and had his PermCath removed because of gram-negative septicemia with Acinetobacter and Stenotrophomonas and E coli. The patient states that he has been having fevers and chills during and after dialysis. On 10/15/2016. he had a fever in the Dialysis Clinic to 101.2. Two sets of blood cultures were obtained and those returned with gram-negative rods. He was told to come in to the hospital, but did not come in until yesterday. The blood cultures growing what appears to be probable Acinetobacter again along with a second gram-negative tristan with final result expected tomorrow. At discharge last time, the patient was continued on Levaquin every 48 hours by mouth both for the recent bloodstream infection along with empiric therapy of his osteomyelitis. In addition, he was given Bactrim DS one p.o. daily through 10/12/2016 along with fluconazole through 10/14/2016 as he also had grown Kerri last admission. Finally, he was continued on vancomycin through October 30 to complete a very long course of empiric therapy for the vertebral osteomyelitis. The patient has been afebrile here in the hospital. His white blood cell count is normal. He says his back pain is overall about the same, perhaps somewhat improved. He denies using his dialysis catheter himself. PAST MEDICAL HISTORY: Otherwise unchanged from the previous dictations including that of 09/29/2016. OUTPATIENT MEDICATIONS: Antibiotics as outlined above. In addition, he was taking insulin, albuterol, Reglan, Dulera, Avinza, Roxicodone, pantoprazole, tenofovir weekly, Spiriva, and a stool softener. SOCIAL HISTORY: Otherwise negative or unchanged. FAMILY HISTORY: Otherwise negative or unchanged. REVIEW OF SYSTEMS: Otherwise negative or unchanged. He denies any nausea, vomiting, or diarrhea. PHYSICAL EXAMINATION: VITAL SIGNS: The patient is afebrile. Blood pressure 104/67, pulse 61, respiratory rate 14. Consultation Report [address] [place]. [address] NAME: JUDIE MARK : 65 STATUS : ADM IN [facility]#: [id number] AGE: 50 ADM/REG DATE : 10/17/16 MR#: [id number] REPORT SERV DATE: 10/18/16 DICTATED BY: NANY PAL DATE: 10/18/16 REPORT STATUS : Draft TRANSCRIBED BY: LISSETT DATE: 10/18/16 GENERAL: He is alert, in no acute distress. HEAD AND NECK: Unremarkable. LUNGS: Clear to auscultation. CARDIAC: Regular rate and rhythm. Normal S1, S2 with a 2/6 systolic ejection murmur, left sternal border. ABDOMEN: Soft and nontender. EXTREMITIES: Unchanged lower leg edema. He has a right IJ dialysis catheter covered by dressing. LABORATORY STUDIES: White blood cell count 3.3, hemoglobin 7.4, platelets 99,000. Albumin 2.1. Liver function tests normal. Procalcitonin on admission 14.55. Blood cultures were repeated yesterday and today and are pending. Chest x-ray negative. IMPRESSION: Gram-negative septicemia on 10/15/2016. I suspect this is coming from his dialysis catheter. Overall, I doubt endocarditis. PLAN: 1. Pending final culture results. I will give IV Septra after dialysis today in addition to continuing Levaquin every 48 hours and vancomycin with the vancomycin and Levaquin scheduled to go through 10/30/2016. 2. We will discuss his catheter options with Nephrology. RENEE/LISSETT Nany Pal M.D. / [id number] CC: Jordon Huynh MD
--- NOTE | ~2016-10-17 | DS ---
Discharge Summary [facility] [address] [place]. [address] NAME: JUDIE TORIBIO : 65 STATUS : DIS IN PAT#: [id number] AGE: 50 ADM/REG DATE : 10/17/16 MR#: [id number] REPORT SERV DATE: 10/30/16 DICTATED BY: MIKE SETH DATE: 10/29/16 REPORT STATUS : Draft TRANSCRIBED BY: MODL DATE: 10/29/16 ADMISSION DATE: 10/17/2016 DISCHARGE DATE: 10/29/2016 INDICATION FOR ADMISSION: Gram-negative bacteremia from 10/16/2016 blood culture. DISCHARGE DIAGNOSES: 1. Acinetobacter sepsis and Stenotrophomonas bacteremia with multiple organism infection. 2. Recent fungemia. 3. Recurrent admissions for multi organism bacteremia. 4. End-stage renal disease, dialyzing Friday, , Friday by PermCath. 5. Anemia. 6. Cirrhosis. 7. Hepatitis B. 8. Hepatitis C. 9. Chronic diskitis at L4-L5. The patient refuses surgical intervention. 10.Chronic pain, followed by Palliative Care. 11.Chronic obstructive pulmonary disease. 12.Insulin-dependent diabetes mellitus. 13.Ongoing tobacco abuse. HOSPITAL COURSE: Mr. Toribio is a 50-year-old male who dialyzes Friday, , and Saturdays by PermCath. He had actually been dialyzing by Vas-Cath due to recurrent admissions for infection. It is assumed that he has been using his PermCath or IV access or drug injection. He was admitted after spiking a temp and having blood cultures drawn in the outpatient unit on 10/16/2016, which grew out gram-negative bacteremia. Upon culturing, he had both Acinetobacter and Stenotrophomonas bacteria in his blood cultures. Infectious Disease was consulted and appropriate antibiotics were initiated. He was seen by Dr. Pal and placed on IV Septra, Levaquin, and vancomycin. Plans were to continue this through 10/30/2016. The patient had removal of the Vas-Cath and subsequent insertion of a femoral catheter by Vascular Surgery. He used this until cultures were negative on antibiotic therapy. He then underwent placement of a right internal jugular PermCath by Dr. Beck on 10/28/2016. He remained afebrile with evidence of neutropenia and thrombocytopenia from his underlying cirrhosis. Cultures were negative for growth prior to placement of the PermCath. He was felt stable for release and will be discharged home with followup on dialysis Friday, , and Friday. DISCHARGE MEDICATIONS: NovoLog insulin sliding scale per home regimen; levofloxacin 500 mg q.48 hours; Reglan 10 mg a.c. and at bedtime; morphine extended release capsules 60 mg 1 q.8h, written by Palliative Care; Protonix 40 mg twice daily; Spiriva HandiHaler one inhalation daily; vancomycin 500 mg IV every dialysis through 10/31/2016; albuterol powder for inhalation; ProAir one puff twice daily; Dulera 200 mcg per 5 mcg inhaler 13 g two puffs twice daily; Viread 300 mg p.o. q.7 days; oxycodone 15 mg q.4h p.r.n. pain per Palliative Care; and Septra DS one tablet daily. DIET: 2000-calorie ADA renal diet with 1500 mL fluid restriction per day. Discharge Summary [address] [address] NAME: JUDIE TORIBIO : 65 STATUS : DIS IN PAT#: [id number] AGE: 50 ADM/REG DATE : 10/17/16 MR#: [id number] REPORT SERV DATE: 10/30/16 DICTATED BY: MIKE SETH DATE: 10/29/16 REPORT STATUS : Draft TRANSCRIBED BY: LISSETT DATE: 10/29/16 FOLLOWUP: On dialysis. Follow up with Infectious Disease as requested. ACTIVITY: Activity will be to resume home regimen. He was instructed on multiple occasions not to use his vascular access for drug injection. DICTATED BY: Nas Wu/LISSETT Mike Seth M.D. / [id number] CC: Jordon Huynh MD
--- NOTE | ~2016-10-17 | OP ---
Record Of Operation [facility] [address] [place]. [address] NAME: JUDIE MARK : 65 STATUS : DIS IN PAT#: [id number] AGE: 51 ADM/REG DATE : 10/17/16 MR#: [id number] REPORT SERV DATE: 12/23/16 DICTATED BY: JAYCE GRAHAM DATE: 12/23/16 REPORT STATUS : Draft TRANSCRIBED BY: MODL DATE: 12/23/16 DATE OF PROCEDURE: 10/22/2016 PREOPERATIVE DIAGNOSIS: End-stage renal disease with need for temporary dialysis access. POSTOPERATIVE DIAGNOSIS: End-stage renal disease with need for temporary dialysis access. PROCEDURE: Placement of right femoral vein dialysis catheter. PRIMARY SURGEON: Jayce Graham M.D. LANE ATTENDANT SURGEON: Isabella Schaefer M.D. INDICATIONS FOR PROCEDURE: The patient is a 50-year-old male with end-stage renal disease, requiring dialysis. He had a PermCath removed due to infection and required temporary dialysis access. After risks and benefits were discussed with the patient and his questions were answered, informed consent was performed and signed. DESCRIPTION OF PROCEDURE: Under sterile conditions and after informed consent had been obtained, the right femoral vein was accessed using one puncture via Seldinger technique after local anesthetic of 1% lidocaine without epinephrine had been infused into the subcutaneous tissues. Intravenous access was confirmed with withdrawal of dark venous blood from the syringe. The vein was dilated over the wire and a 14-[place] x 24 cm dialysis catheter was placed over the wire. After the wire was withdrawn, both ports flushed and hien easily. They were packed with heparin and the catheter was sutured into place. After this, a sterile dressing was placed. The patient tolerated the procedure well. COMPLICATIONS: None. ESTIMATED BLOOD LOSS: 5 mL. IMPLANTS: 14-Central African x 24 cm dialysis access catheter. DICTATED BY: MD RACHEL Cisneros/LISSETT Jayce Graham MD / [id number] CC: Jordon Huynh MD
[~2016-10-17 16:55] MED LIST changes: +ROXICODONE15 MG PO; +SEPTRA DS1 TAB PO
[2016-10-17] MEDS ORDERED: STOOL SOFTENER (19:43)
[2016-10-17 20:55] LABS: BASOPHILS 0.3 %; BASOPHILS ABSOLUTE 0.01 10/3/uL (0.0-0.16); EOSINOPHILS 1.3 %; EOSINOPHILS ABSOLUTE 0.05 10/3/uL (0.0-0.53); ER CBC TAT 0 Hrs 05 Mins; HEMATOCRIT 24.1 % (40.0-51.0); HEMOGLOBIN 7.8 g/dL (13.6-17.8); LYMPHOCYTES 30.4 %; LYMPHOCYTES ABSOLUTE 1.13 10/3/uL (0.67-4.30); MANUAL DIFF NO %; MEAN CORPUS HGB CONC 32.4 g/dL (32.0-36.0); MEAN CORPUSCULAR HEMOGLOB 28.6 pg (26.0-34.0); MEAN CORPUSCULAR VOLUME 88.3 fL (80-100); MEAN PLATELET VOLUME 11.2 fL (9.2-13.0); MONOCYTES 5.4 %; NEUTROPHILS 62.6 %; NEUTROPHILS ABSOLUTE 2.33 10/3/uL (2.02-8.40); PLATELET COUNT 102 10/3/uL (150-400); RBC DISTRIBUTION WIDTH 17.4 % (12.0-16.0); RED CELL COUNT 2.73 10/6/uL (4.7-6.1); WHITE BLOOD CELLS 3.7 10/3/uL (4.5-10.5)
[2016-10-17 21:02] LABS: INTERNATIONAL NORMAL RATI 1.1 UNITS (-); PARTIAL THROMBO TIME 38.8 SEC (22.5-37.2); PROTIME (NOT ORD) 14.3 SEC (12.0-14.5)
[2016-10-17 21:10] LABS: A/G RATIO 0.5 (0.7-1.9); ALBUMIN 2.3 G/DL (3.5-5.0); CALCIUM, SERUM 7.8 MG/DL (8.5-10.4); CHLORIDE, SERUM 98 MMOL/L (96-112); CO2 (CARBON DIOXIDE) 28 MMOL/L (24-34); GLOBULIN 4.9 G/DL (2.5-4.1); GLUCOSE, SERUM 84 MG/DL (60-99); POTASSIUM, SERUM 4.7 MMOL/L (3.5-5.3); SGOT(AST) 17 U/L (5-40); SGPT(ALT) 9 U/L (5-65); SODIUM, SERUM 132 MMOL/L (135-148); TOTAL BILIRUBIN 0.6 MG/DL (0-1.2); TOTAL PROTEIN 7.2 G/DL (6.0-8.5)
[2016-10-17 21:11] LABS: ALKALINE PHOSPHATASE 113 U/L (45-117); BUN (BLOOD UREA NITROGEN) 28 MG/DL (6-23); CREATININE 4.13 MG/DL (0.70-1.30); GFR AFRICAN AMERICAN 18 ML/MIN (>=60); GFR NON AFRICAN AMERICAN 16 ML/MIN (>=60)
[2016-10-17 21:15] LABS: LACTATE 0.9 MMOL/L (0.3-2.4)
[2016-10-17 21:32] LABS: PROCALCITONIN 14.55 ng/mL (<0.5)
[2016-10-18 06:34] LABS: BASOPHILS 0.3 %; BASOPHILS ABSOLUTE 0.01 10/3/uL (0.0-0.16); EOSINOPHILS 2.8 %; EOSINOPHILS ABSOLUTE 0.09 10/3/uL (0.0-0.53); HEMATOCRIT 22.2 % (40.0-51.0); HEMOGLOBIN 7.4 g/dL (13.6-17.8); IMMATURE GRANULOCYTES 0.3 %; IMMATURE GRANULOCYTES ABSOLUTE 0.01 10/3/uL (0.0-0.11); LYMPHOCYTES 49.5 %; LYMPHOCYTES ABSOLUTE 1.61 10/3/uL (0.67-4.30); MEAN CORPUS HGB CONC 33.3 g/dL (32.0-36.0); MEAN CORPUSCULAR HEMOGLOB 29.2 pg (26.0-34.0); MEAN CORPUSCULAR VOLUME 87.7 fL (80-100); MEAN PLATELET VOLUME 10.2 fL (9.2-13.0); MONOCYTES 6.2 %; NEUTROPHILS 40.9 %; NEUTROPHILS ABSOLUTE 1.33 10/3/uL (2.02-8.40); PLATELET COUNT 99 10/3/uL (150-400); RBC DISTRIBUTION WIDTH 17.4 % (12.0-16.0); RED CELL COUNT 2.53 10/6/uL (4.7-6.1); WHITE BLOOD CELLS 3.3 10/3/uL (4.5-10.5)
[2016-10-18 06:35] LABS: MANUAL DIFF NO %
[2016-10-18 06:49] LABS: A/G RATIO 0.4 (0.7-1.9); ALBUMIN 2.1 G/DL (3.5-5.0); ALKALINE PHOSPHATASE 102 U/L (45-117); BUN (BLOOD UREA NITROGEN) 30 MG/DL (6-23); CALCIUM, SERUM 7.6 MG/DL (8.5-10.4); CHLORIDE, SERUM 97 MMOL/L (96-112); CO2 (CARBON DIOXIDE) 26 MMOL/L (24-34); CREATININE 4.32 MG/DL (0.70-1.30); GFR AFRICAN AMERICAN 17 ML/MIN (>=60); GFR NON AFRICAN AMERICAN 15 ML/MIN (>=60); GLOBULIN 4.8 G/DL (2.5-4.1); GLUCOSE, SERUM 76 MG/DL (60-99); POTASSIUM, SERUM 4.6 MMOL/L (3.5-5.3); SGOT(AST) 14 U/L (5-40); SGPT(ALT) 7 U/L (5-65); SODIUM, SERUM 130 MMOL/L (135-148); TOTAL BILIRUBIN 0.8 MG/DL (0-1.2); TOTAL PROTEIN 6.9 G/DL (6.0-8.5)
[2016-10-18 15:47] LABS: ACETAMINOPHEN LEVEL (TYLENOL) < 2.0 MCG/ML (10.0-20.0); ALCOHOL < 10 MG/DL (0); SALICYLATE < 1.7 MG/DL (-)
[2016-10-19 07:08] LABS: BASOPHILS 0 %; EOSINOPHILS 1.9 %; EOSINOPHILS ABSOLUTE 0.08 10/3/uL (0.0-0.53); HEMATOCRIT 24.3 % (40.0-51.0); HEMOGLOBIN 7.8 g/dL (13.6-17.8); IMMATURE GRANULOCYTES 0.2 %; IMMATURE GRANULOCYTES ABSOLUTE 0.01 10/3/uL (0.0-0.11); MEAN CORPUS HGB CONC 32.1 g/dL (32.0-36.0); MEAN CORPUSCULAR HEMOGLOB 28.5 pg (26.0-34.0); MEAN CORPUSCULAR VOLUME 88.7 fL (80-100); MONOCYTES 6.7 %; MONOCYTES ABSOLUTE 0.28 10/3/uL (0.21-1.20); NEUTROPHILS 60.2 %; NEUTROPHILS ABSOLUTE 2.52 10/3/uL (2.02-8.40); PLATELET COUNT 92 10/3/uL (150-400); RBC DISTRIBUTION WIDTH 17.1 % (12.0-16.0); RED CELL COUNT 2.74 10/6/uL (4.7-6.1); WHITE BLOOD CELLS 4.2 10/3/uL (4.5-10.5)
[2016-10-19 07:12] LABS: MANUAL DIFF NO %
[2016-10-19 07:21] LABS: ALBUMIN 2.1 G/DL (3.5-5.0); CALCIUM, SERUM 7.6 MG/DL (8.5-10.4); CHLORIDE, SERUM 99 MMOL/L (96-112); CO2 (CARBON DIOXIDE) 25 MMOL/L (24-34); GLUCOSE, SERUM 80 MG/DL (60-99); SODIUM, SERUM 133 MMOL/L (135-148)
[2016-10-19 07:22] LABS: BUN (BLOOD UREA NITROGEN) 18 MG/DL (6-23); CREATININE 3.41 MG/DL (0.70-1.30); GFR AFRICAN AMERICAN 23 ML/MIN (>=60); GFR NON AFRICAN AMERICAN 20 ML/MIN (>=60); PHOSPHORUS, SERUM 3.5 MG/DL (2.5-4.5)
[2016-10-20 06:10] LABS: AMPHETAMINES (NOT ORD) NEG (NEG); BARBITURATES (NOT ORDERED NEG (NEG); BENZODIAZEPINES (NOT ORD) NEG (NEG); CANNABINOIDS (THC) NEG (NEG); COCAINE (NOT ORDERED) NEG (NEG); OPIATES POS (NEG); PHENCYCLIDINE(PCP) NEG (NEG); TRICYCLICS NEG (NEG)
[2016-10-22 10:15] LABS: BASOPHILS 0.4 %; BASOPHILS ABSOLUTE 0.01 10/3/uL (0.0-0.16); EOSINOPHILS 2.6 %; EOSINOPHILS ABSOLUTE 0.07 10/3/uL (0.0-0.53); HEMATOCRIT 21.9 % (40.0-51.0); HEMOGLOBIN 7.2 g/dL (13.6-17.8); LYMPHOCYTES ABSOLUTE 1.04 10/3/uL (0.67-4.30); MANUAL DIFF NO %; MEAN CORPUS HGB CONC 32.9 g/dL (32.0-36.0); MEAN CORPUSCULAR VOLUME 88.3 fL (80-100); MEAN PLATELET VOLUME 9.1 fL (9.2-13.0); MONOCYTES 5.1 %; MONOCYTES ABSOLUTE 0.14 10/3/uL (0.21-1.20); NEUTROPHILS 53.9 %; NEUTROPHILS ABSOLUTE 1.48 10/3/uL (2.02-8.40); PLATELET COUNT 104 10/3/uL (150-400); RBC DISTRIBUTION WIDTH 16.3 % (12.0-16.0); RED CELL COUNT 2.48 10/6/uL (4.7-6.1); WHITE BLOOD CELLS 2.7 10/3/uL (4.5-10.5)
[2016-10-22 10:30] LABS: ALBUMIN 2.3 G/DL (3.5-5.0); CALCIUM, SERUM 7.9 MG/DL (8.5-10.4); CHLORIDE, SERUM 95 MMOL/L (96-112); CO2 (CARBON DIOXIDE) 26 MMOL/L (24-34); GLUCOSE, SERUM 88 MG/DL (60-99); POTASSIUM, SERUM 4.5 MMOL/L (3.5-5.3); SODIUM, SERUM 127 MMOL/L (135-148)
[2016-10-22 10:35] LABS: BUN (BLOOD UREA NITROGEN) 22 MG/DL (6-23); CREATININE 4.31 MG/DL (0.70-1.30); GFR AFRICAN AMERICAN 17 ML/MIN (>=60); GFR NON AFRICAN AMERICAN 15 ML/MIN (>=60); PHOSPHORUS, SERUM 4.6 MG/DL (2.5-4.5)
[2016-10-22 14:16] LABS: BASOPHILS 0.3 %; BASOPHILS ABSOLUTE 0.01 10/3/uL (0.0-0.16); EOSINOPHILS 1.9 %; EOSINOPHILS ABSOLUTE 0.06 10/3/uL (0.0-0.53); HEMATOCRIT 21.2 % (40.0-51.0); IMMATURE GRANULOCYTES 0.3 %; IMMATURE GRANULOCYTES ABSOLUTE 0.01 10/3/uL (0.0-0.11); LYMPHOCYTES 35.4 %; LYMPHOCYTES ABSOLUTE 1.11 10/3/uL (0.67-4.30); MEAN CORPUSCULAR HEMOGLOB 28.9 pg (26.0-34.0); MEAN CORPUSCULAR VOLUME 87.6 fL (80-100); MEAN PLATELET VOLUME 9.7 fL (9.2-13.0); MONOCYTES 5.1 %; MONOCYTES ABSOLUTE 0.16 10/3/uL (0.21-1.20); NEUTROPHILS ABSOLUTE 1.79 10/3/uL (2.02-8.40); PLATELET COUNT 103 10/3/uL (150-400); RED CELL COUNT 2.42 10/6/uL (4.7-6.1); WHITE BLOOD CELLS 3.1 10/3/uL (4.5-10.5)
[2016-10-22 14:21] LABS: MANUAL DIFF NO %
[2016-10-22 14:27] LABS: ALBUMIN 2.2 G/DL (3.5-5.0); BUN (BLOOD UREA NITROGEN) 22 MG/DL (6-23); CALCIUM, SERUM 7.9 MG/DL (8.5-10.4); CHLORIDE, SERUM 93 MMOL/L (96-112); CO2 (CARBON DIOXIDE) 26 MMOL/L (24-34); CREATININE 4.36 MG/DL (0.70-1.30); GFR AFRICAN AMERICAN 17 ML/MIN (>=60); GFR NON AFRICAN AMERICAN 15 ML/MIN (>=60); GLUCOSE, SERUM 86 MG/DL (60-99); PHOSPHORUS, SERUM 4.5 MG/DL (2.5-4.5); POTASSIUM, SERUM 4.5 MMOL/L (3.5-5.3); SODIUM, SERUM 127 MMOL/L (135-148)
[2016-10-23 05:42] LABS: BASOPHILS 0.4 %; BASOPHILS ABSOLUTE 0.01 10/3/uL (0.0-0.16); EOSINOPHILS 2.5 %; EOSINOPHILS ABSOLUTE 0.07 10/3/uL (0.0-0.53); HEMATOCRIT 29.8 % (40.0-51.0); HEMOGLOBIN 9.8 g/dL (13.6-17.8); IMMATURE GRANULOCYTES 0.7 %; IMMATURE GRANULOCYTES ABSOLUTE 0.02 10/3/uL (0.0-0.11); LYMPHOCYTES 38.7 %; MANUAL DIFF NO %; MEAN CORPUS HGB CONC 32.9 g/dL (32.0-36.0); MEAN CORPUSCULAR HEMOGLOB 29.3 pg (26.0-34.0); MEAN PLATELET VOLUME 9.3 fL (9.2-13.0); MONOCYTES 5.6 %; MONOCYTES ABSOLUTE 0.16 10/3/uL (0.21-1.20); NEUTROPHILS 52.1 %; NEUTROPHILS ABSOLUTE 1.48 10/3/uL (2.02-8.40); PLATELET COUNT 99 10/3/uL (150-400); RBC DISTRIBUTION WIDTH 16.1 % (12.0-16.0); RED CELL COUNT 3.35 10/6/uL (4.7-6.1); WHITE BLOOD CELLS 2.8 10/3/uL (4.5-10.5)
[2016-10-23 05:53] LABS: ALBUMIN 2.2 G/DL (3.5-5.0); CHLORIDE, SERUM 102 MMOL/L (96-112); CO2 (CARBON DIOXIDE) 26 MMOL/L (24-34); GLUCOSE, SERUM 79 MG/DL (60-99); POTASSIUM, SERUM 4.1 MMOL/L (3.5-5.3); SODIUM, SERUM 133 MMOL/L (135-148)
[2016-10-23 05:58] LABS: BUN (BLOOD UREA NITROGEN) 11 MG/DL (6-23); CREATININE 2.78 MG/DL (0.70-1.30); GFR AFRICAN AMERICAN 29 ML/MIN (>=60); GFR NON AFRICAN AMERICAN 25 ML/MIN (>=60); PHOSPHORUS, SERUM 3.3 MG/DL (2.5-4.5)
[2016-10-24 08:11] LABS: BASOPHILS 0.4 %; BASOPHILS ABSOLUTE 0.01 10/3/uL (0.0-0.16); EOSINOPHILS 1.8 %; EOSINOPHILS ABSOLUTE 0.05 10/3/uL (0.0-0.53); HEMOGLOBIN 8.7 g/dL (13.6-17.8); IMMATURE GRANULOCYTES 0.4 %; IMMATURE GRANULOCYTES ABSOLUTE 0.01 10/3/uL (0.0-0.11); LYMPHOCYTES ABSOLUTE 1.25 10/3/uL (0.67-4.30); MEAN CORPUS HGB CONC 33.2 g/dL (32.0-36.0); MEAN CORPUSCULAR HEMOGLOB 29.1 pg (26.0-34.0); MEAN CORPUSCULAR VOLUME 87.6 fL (80-100); MEAN PLATELET VOLUME 9.3 fL (9.2-13.0); MONOCYTES 5.3 %; MONOCYTES ABSOLUTE 0.15 10/3/uL (0.21-1.20); NEUTROPHILS 48.1 %; NEUTROPHILS ABSOLUTE 1.37 10/3/uL (2.02-8.40); PLATELET COUNT 92 10/3/uL (150-400); RBC DISTRIBUTION WIDTH 15.9 % (12.0-16.0); RED CELL COUNT 2.99 10/6/uL (4.7-6.1); WHITE BLOOD CELLS 2.8 10/3/uL (4.5-10.5)
[2016-10-24 08:12] LABS: HEMATOCRIT 26.2 % (40.0-51.0); MANUAL DIFF NO %
[2016-10-24 08:29] LABS: ALBUMIN 2.3 G/DL (3.5-5.0); BUN (BLOOD UREA NITROGEN) 17 MG/DL (6-23); CHLORIDE, SERUM 97 MMOL/L (96-112); CO2 (CARBON DIOXIDE) 28 MMOL/L (24-34); CREATININE 3.75 MG/DL (0.70-1.30); GFR AFRICAN AMERICAN 20 ML/MIN (>=60); GFR NON AFRICAN AMERICAN 18 ML/MIN (>=60); GLUCOSE, SERUM 78 MG/DL (60-99); POTASSIUM, SERUM 4.2 MMOL/L (3.5-5.3); SODIUM, SERUM 132 MMOL/L (135-148)
[2016-10-24 10:38] LABS: VANCOMYCIN TROUGH 17.9 MCG/ML (10.0-20.0)
[2016-10-26 07:38] LABS: BASOPHILS 0.3 %; BASOPHILS ABSOLUTE 0.01 10/3/uL (0.0-0.16); EOSINOPHILS 1.4 %; EOSINOPHILS ABSOLUTE 0.05 10/3/uL (0.0-0.53); HEMOGLOBIN 8.6 g/dL (13.6-17.8); LYMPHOCYTES 34.8 %; LYMPHOCYTES ABSOLUTE 1.22 10/3/uL (0.67-4.30); MEAN CORPUS HGB CONC 33.1 g/dL (32.0-36.0); MEAN CORPUSCULAR HEMOGLOB 29.2 pg (26.0-34.0); MEAN CORPUSCULAR VOLUME 88.1 fL (80-100); MEAN PLATELET VOLUME 9.1 fL (9.2-13.0); MONOCYTES 6.3 %; MONOCYTES ABSOLUTE 0.22 10/3/uL (0.21-1.20); NEUTROPHILS 57.2 %; NEUTROPHILS ABSOLUTE 2.01 10/3/uL (2.02-8.40); PLATELET COUNT 82 10/3/uL (150-400); RBC DISTRIBUTION WIDTH 15.6 % (12.0-16.0); RED CELL COUNT 2.95 10/6/uL (4.7-6.1); WHITE BLOOD CELLS 3.5 10/3/uL (4.5-10.5)
[2016-10-26 07:42] LABS: MANUAL DIFF NO %
[2016-10-26 07:53] LABS: ALBUMIN 2.3 G/DL (3.5-5.0); BUN (BLOOD UREA NITROGEN) 21 MG/DL (6-23); CHLORIDE, SERUM 99 MMOL/L (96-112); CO2 (CARBON DIOXIDE) 27 MMOL/L (24-34); CREATININE 4.02 MG/DL (0.70-1.30); GFR AFRICAN AMERICAN 19 ML/MIN (>=60); GFR NON AFRICAN AMERICAN 16 ML/MIN (>=60); GLUCOSE, SERUM 87 MG/DL (60-99); PHOSPHORUS, SERUM 4.3 MG/DL (2.5-4.5); POTASSIUM, SERUM 4.7 MMOL/L (3.5-5.3); SODIUM, SERUM 133 MMOL/L (135-148); VANCOMYCIN TROUGH 21.1 MCG/ML (10.0-20.0)
[2016-10-28 04:12] LABS: BASOPHILS 0.6 %; BASOPHILS ABSOLUTE 0.02 10/3/uL (0.0-0.16); EOSINOPHILS 1.2 %; EOSINOPHILS ABSOLUTE 0.04 10/3/uL (0.0-0.53); HEMATOCRIT 24.8 % (40.0-51.0); HEMOGLOBIN 8.1 g/dL (13.6-17.8); IMMATURE GRANULOCYTES 0.3 %; IMMATURE GRANULOCYTES ABSOLUTE 0.01 10/3/uL (0.0-0.11); LYMPHOCYTES 29.4 %; MEAN CORPUS HGB CONC 32.7 g/dL (32.0-36.0); MEAN CORPUSCULAR HEMOGLOB 28.9 pg (26.0-34.0); MEAN CORPUSCULAR VOLUME 88.6 fL (80-100); MEAN PLATELET VOLUME 9.5 fL (9.2-13.0); MONOCYTES ABSOLUTE 0.17 10/3/uL (0.21-1.20); NEUTROPHILS 63.5 %; NEUTROPHILS ABSOLUTE 2.16 10/3/uL (2.02-8.40); PLATELET COUNT 79 10/3/uL (150-400); RBC DISTRIBUTION WIDTH 15.2 % (12.0-16.0); WHITE BLOOD CELLS 3.4 10/3/uL (4.5-10.5)
[2016-10-28 04:15] LABS: MANUAL DIFF NO %
[2016-10-28 04:29] LABS: ALBUMIN 2.3 G/DL (3.5-5.0); BUN (BLOOD UREA NITROGEN) 20 MG/DL (6-23); CALCIUM, SERUM 8.2 MG/DL (8.5-10.4); CHLORIDE, SERUM 95 MMOL/L (96-112); CO2 (CARBON DIOXIDE) 27 MMOL/L (24-34); CREATININE 3.66 MG/DL (0.70-1.30); GFR AFRICAN AMERICAN 21 ML/MIN (>=60); GFR NON AFRICAN AMERICAN 18 ML/MIN (>=60); GLUCOSE, SERUM 77 MG/DL (60-99); PHOSPHORUS, SERUM 3.6 MG/DL (2.5-4.5); POTASSIUM, SERUM 4.6 MMOL/L (3.5-5.3); SODIUM, SERUM 129 MMOL/L (135-148)
[2016-10-28 06:23] LABS: PLATELET ESTIMATE DEC (ADEQUATE); RBC MORPHOLOGY NORM (NORMAL)
[2016-10-29 08:06] LABS: BASOPHILS 0.7 %; BASOPHILS ABSOLUTE 0.02 10/3/uL (0.0-0.16); EOSINOPHILS 1.4 %; EOSINOPHILS ABSOLUTE 0.04 10/3/uL (0.0-0.53); HEMATOCRIT 23.6 % (40.0-51.0); HEMOGLOBIN 7.8 g/dL (13.6-17.8); LYMPHOCYTES 36.7 %; LYMPHOCYTES ABSOLUTE 1.08 10/3/uL (0.67-4.30); MEAN CORPUS HGB CONC 33.1 g/dL (32.0-36.0); MEAN CORPUSCULAR HEMOGLOB 28.9 pg (26.0-34.0); MEAN CORPUSCULAR VOLUME 87.4 fL (80-100); MEAN PLATELET VOLUME 9.3 fL (9.2-13.0); MONOCYTES 6.8 %; NEUTROPHILS 54.4 %; PLATELET COUNT 67 10/3/uL (150-400); RBC DISTRIBUTION WIDTH 15.1 % (12.0-16.0); WHITE BLOOD CELLS 2.9 10/3/uL (4.5-10.5)
[2016-10-29 08:08] LABS: MANUAL DIFF NO %
[2016-10-29 08:12] LABS: ALBUMIN 2.3 G/DL (3.5-5.0); CALCIUM, SERUM 8.3 MG/DL (8.5-10.4); CHLORIDE, SERUM 95 MMOL/L (96-112); CO2 (CARBON DIOXIDE) 27 MMOL/L (24-34); GFR AFRICAN AMERICAN 16 ML/MIN (>=60); GFR NON AFRICAN AMERICAN 14 ML/MIN (>=60); GLUCOSE, SERUM 77 MG/DL (60-99); PHOSPHORUS, SERUM 4.4 MG/DL (2.5-4.5); POTASSIUM, SERUM 4.9 MMOL/L (3.5-5.3); SODIUM, SERUM 130 MMOL/L (135-148)
[2016-10-29 08:13] LABS: BUN (BLOOD UREA NITROGEN) 26 MG/DL (6-23); CREATININE 4.59 MG/DL (0.70-1.30)
[2016-10-29 08:32] LABS: PLATELET ESTIMATE DEC (ADEQUATE); RBC MORPHOLOGY NORM (NORMAL)
[2016-11-28] MEDS ORDERED: DSS PO (23:09)
[2016-11-28] MEDS ORDERED: MSCONT60 PO (23:09)
[2016-11-28] MEDS ORDERED: ROXICODONE15 MG PO (23:10)
[2016-11-28] MEDS ORDERED: LEVEMIR (23:10)
[2016-11-28] MEDS ORDERED: REM15 PO (23:10)
[2016-11-28] MEDS ORDERED: PRILOSEC40 MG PO (23:11)
[2016-11-28] MEDS ORDERED: BREO ELLIPTA INH (23:11)
[2016-11-28] MEDS ORDERED: PROAIR HFA INH (23:11)
[2016-11-28] MEDS ORDERED: SPIRIVA INH (23:11)
[2016-11-28] MEDS ORDERED: COREG12 PO (23:11)
[2016-11-28] MEDS ORDERED: REG PO (23:12)
[2016-12-06] MEDS ORDERED: LEVAQUIN5T PO (19:26)
[2016-12-06] MEDS ORDERED: NEPHRO PO (19:32)
[2016-12-22] MEDS ORDERED: ROXICODONE15 MG PO ×2 (15:56)
[2016-12-22] MEDS ORDERED: MSCONT60 PO (15:56)
[2016-12-22] MEDS ORDERED: LEVEMFLXPN SC (15:57)
[2016-12-22] MEDS ORDERED: REM15 PO (15:57)
[2016-12-22] MEDS ORDERED: BREO ELLIPTA 21 EACH INH (15:58)
[2016-12-22] MEDS ORDERED: COREG12 PO (15:58)
[2016-12-22] MEDS ORDERED: Proair Hfa (15:59)
[2016-12-22] MEDS ORDERED: PRILOSEC40 MG PO (15:59)
[2016-12-22] MEDS ORDERED: Spiriva Handihaler (16:00)
[2016-12-22] MEDS ORDERED: DSS PO (16:01)
[2016-12-22] MEDS ORDERED: REG PO (16:01)
[2016-12-22] MEDS ORDERED: DULERA 200 MCG/13 GM INH (16:02)
[2016-12-22] MEDS ORDERED: NEPHRO PO (16:02)
[2016-12-22] MEDS ORDERED: PROTONIX PO (16:02)
[2016-12-22] MEDS ORDERED: [UNRECOGNIZED DRUG - OTHER] NAS (16:04)
[2016-12-28] MEDS ORDERED: METHATAB10 PO (12:40)
[2016-12-28] MEDS ORDERED: PROAMATINE10 MG PO (12:43)
[2016-12-28] MEDS ORDERED: BACTRIM DS1 TAB PO (12:45)
[2016-12-28] MEDS ORDERED: LEVAQUIN5T PO ×2 (12:50→12:51)
[2016-12-28] MEDS ORDERED: BREO ELLIPTA 21 EACH INH (14:37)
[2016-12-28] MEDS ORDERED: VENTOLIN HFA INH (14:38)
[2016-12-28] MEDS ORDERED: DULERA 200 MCG/13 GM INH (14:38)
[2016-12-28] MEDS ORDERED: SPIRIVA INH (14:38)
== END 2016-10-29 15:36 | disposition home or self-care (01) | DRG 314 ==
LOC: ER 16:55 → 2SO 22:13
PROVIDERS: Emergency Medicine; Internal Medicine Nephrology; Registered Nurse; Surgery
PROC: 30233N1 Transfusion of Nonautologous Red Blood Cells into Peripheral Vein, Percutaneous Approach (ICD-10-PCS; 2016-10-22)
PROC: B543ZZA Ultrasonography of Right Jugular Veins, Guidance (ICD-10-PCS; 2016-10-28)
PROC: 05HM33Z Insertion of Infusion Device into Right Internal Jugular Vein, Percutaneous Approach (ICD-10-PCS; principal; 2016-10-28 15:45)
DX: T82.7XXA Infection and inflammatory reaction due to other cardiac and vascular devices, implants and grafts, initial encounter (principal); A41.50 Gram-negative sepsis, unspecified; N18.6 End stage renal disease; I12.0 Hypertensive chronic kidney disease with stage 5 chronic kidney disease or end stage renal disease; M86.9 Osteomyelitis, unspecified; E11.22 Type 2 diabetes mellitus with diabetic chronic kidney disease; B18.1 Chronic viral hepatitis B without delta-agent; G89.29 Other chronic pain; J44.9 Chronic obstructive pulmonary disease, unspecified; F17.210 Nicotine dependence, cigarettes, uncomplicated; D64.9 Anemia, unspecified; K74.60 Unspecified cirrhosis of liver; Z99.2 Dependence on renal dialysis; Z79.4 Long term (current) use of insulin; Z76.5 Malingerer [conscious simulation]; Z88.5 Allergy status to narcotic agent; Z88.8 Allergy status to other drugs, medicaments and biological substances
CPT/HCPCS: 36415; 36558; 71010; 77001; 80053; 80069; 80202; 80305; 80307; 82962; 83605; 83735; 84145; 85025; 85610; 85730; 86850; 86900; 86901; 86920; 87040; 87070; 87077; 87150; 87186; 93005; 93306; 94640; 96374; 99284; A9270-GY; C1887; G0257; J0885; J1170; J1956; J3370; P9016; Q9967